=== PATIENT | male | born 1960 | race Caucasian/White ===

== ENCOUNTER → 2017-02-12 | Outpatient (CLI) | payer BC ==
--- NOTE | 2017-02-12 21:05 | MR ---
EXAMINATION TYPE: MR cervical spine wo/w con DATE OF EXAM: 02/12/2017 COMPARISON: NONE HISTORY: Neck pain, headache, limited range of motion TECHNIQUE: Multiplanar, multisequence images of the cervical spine were acquired utilizing 7.5 ml mL intravenous Gadavist gadolinium contrast. Diffusion weighted imaging was performed. C2-C3: Posterior disc bulge causes minimal anterior mass effect on the thecal sac somewhat eccentric towards the right. No significant central stenosis or foraminal encroachment. C3-C4: Posterior disc bulge causes anterior mass effect on the thecal sac but no significant central stenosis. No significant foraminal encroachment. C4-C5: Posterior extension of disc bulge causes mild anterior mass effect on the thecal sac. No signi ficant central stenosis or foraminal encroachment. C5-C6: Left posterior paracentral extension of endplate disc complex causes anterolateral mass effect on the thecal sac and may contact the cervical cord. There is left greater than right-sided foramina l encroachment due to lateral extension endplate disc complex. No central stenosis. C6-C7: Circumferential extension of endplate disc complex causes some foraminal encroachment bilatera lly. Minimal disc bulge causes only slight anterior mass effect on the thecal sac, no central stenosi s. C7-T1: No evidence for degenerative disc disease. No disc bulge/herniation or protrusion. No Canal stenosis. Foramina are patent bilaterally. Cervical segments are intact. There is normal alignment. Cervical spinal cord is of normal signal. Craniovertebral junction relationships are within normal limits. There is multilevel spondylosis pr esent. Endplate discogenic marrow signal changes are present with associated loss of disc height and signal especially at C5-6 and C6-7. Minimal retrolisthesis grade 1 C5-6. There is some enhancement th at the facets on the left at C4-5, this may represent some inflammatory change. Correlate for any yo or intervention. IMPRESSION: Degenerative disc disease with multilevel foraminal encroachment. Some enhancement of the facet joint described at C4-5 on the left is noted.
== END | disposition home or self-care (01) ==
LOC: RADMRIMAIN 17:52
PROVIDERS: ATTEND Internal Medicine Geriatric Medicine
DX: M50.30 Other cervical disc degeneration, unspecified cervical region (principal)
CPT/HCPCS: 72156; A9581

== ENCOUNTER → 2017-12-13 | Outpatient (CLI) | payer OTHER ==
[2017-12-13 11:22] LABS: Appearance,Urine Clear (Clear); Bilirubin,Urine Negative (Negative); Blood,Urine Negative (Negative); Color,Urine Yellow; Glucose,Urine (UA) Negative (Negative); Ketones,Urine Negative (Negative); Leukocyte Esterase,Urine Negative (Negative); Nitrite,Urine Negative (Negative); PH, Urine 6.5 (5.0-8.0); Protein,Urine Negative (Negative); Specific Gravity,Urine 1.017 (1.001-1.035)
[2017-12-13 11:38] LABS: Basophils # (A) 0.1 k/uL (0-0.2); Basophils % (A) 1 %; Eosinophils # (A) 0.2 k/uL (0-0.7); Eosinophils % (A) 3 %; HCT 48.4 % (39.0-53.0); Lymphocytes # (A) 1.9 k/uL (1.0-4.8); Lymphocytes % (A) 21 %; MCH 31.8 pg (25.0-35.0); MCV 96.3 fL (80.0-100.0); Mean Platelet Volume 6.9; Monocytes # (A) 0.6 k/uL (0-1.0); Monocytes % (A) 6 %; Neutrophils # (A) 6.2 k/uL (1.3-7.7); Neutrophils % (A) 68 %; Platelet Count 259 k/uL (150-450); RBC 5.02 m/uL (4.30-5.90); RDW 12.8 % (11.5-15.5); WBC 9.1 k/uL (3.8-10.6)
[2017-12-13 11:44] LABS: Anion Gap 10 mmol/L; Blood Urea Nitrogen 13 mg/dL (9-20); Calcium 9.3 mg/dL (8.4-10.2); Carbon Dioxide 25 mmol/L (22-30); Chloride 109 mmol/L (98-107); Glucose 104 mg/dL (74-99); Potassium 4.7 mmol/L (3.5-5.1); Sodium 144 mmol/L (137-145)
[2017-12-13 11:50] LABS: INR 0.9 (<1.2); Partial Thromboplastin Time 23.9 sec (22.0-30.0); Prothrombin Time 9.4 sec (9.0-12.0)
--- NOTE | 2017-12-13 14:39 | XR ---
EXAMINATION TYPE: XR chest 2V DATE OF EXAM: 12/13/2017 HISTORY: Z01.818 Pre Surg. REFERENCE: NONE. FINDINGS: There is a right cardiophrenic angle mass which measures approximately 9 cm. 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 There is some atelectasis in the right lower lung. The lungs are otherwise clear. Pleural space are c lear. The heart is not enlarged. IMPRESSION: 1. RIGHT CARDIOPHRENIC ANGLE MASS. 2. MILD ATELECTATIC CHANGE, RIGHT LUNG BASE.
== END | disposition home or self-care (01) ==
LOC: LABPAT 10:50
PROVIDERS: ATTEND Orthopaedic Surgery Orthopaedic Surgery of the Spine
DX: Z01.818 Encounter for other preprocedural examination (principal); M50.221 Other cervical disc displacement at C4-C5 level; J98.11 Atelectasis; R91.8 Other nonspecific abnormal finding of lung field; Z01.812 Encounter for preprocedural laboratory examination
CPT/HCPCS: 71046; 80048; 81003; 85025; 85610; 85730; 87070

== ENCOUNTER 2017-12-18 06:43 | Inpatient (IN) | payer OTHER ==
[2017-12-12 10:09] VITALS: BMI 23.7
[~2017-12-18 06:43] MED LIST: ONDANSETRON 4 MG/2 ML VIAL IVP PRN; ceFAZolin IN SWFI 2 GM/20 ML SYRINGE IVP ONE; fentaNYL (PF) 50 MCG/ML 2 ML AMP IV PRN
[2017-12-18] MEDS ORDERED: ONDANSETRON 4 MG/2 ML VIAL ONE (07:28)
[2017-12-18] MEDS: LACTATED RINGERS 1,000 ML IV SCH ×2 (07:31→16:13)
[2017-12-18] MEDS ORDERED: LIDOCAINE 1% 20 ML VIAL (10MG/ML) FOR IV START INTRADERMA ONE (07:32)
[2017-12-18] MEDS ORDERED: PROPOFOL 10 MG/ML 20 ML VIAL IV ONE (08:30)
[2017-12-18] MEDS ORDERED: PHENYLEPHRINE-0.9% NACL SYG 1 MG/10 ML SYRINGE ONE (08:30)
[2017-12-18] MEDS ORDERED: fentaNYL (PF) 50 MCG/ML 2 ML AMP ONE (08:30)
[2017-12-18] MEDS ORDERED: MIDAZOLAM 2 MG/2 ML VIAL ONE (08:30)
[2017-12-18] MEDS ORDERED: ePHEDrine SULFATE/0.9% NACL/PF 50 MG/5 ML SYRINGE IV ONE (08:30)
[2017-12-18] MEDS ORDERED: LIDOCAINE 0.5%-EPI 1:200,000 50 ML VIAL SQ ONE (08:30)
[2017-12-18] MEDS ORDERED: DEXAMETHASONE SOD PHOS (MDV) 100 MG/10 ML VIAL ONE (08:30)
[2017-12-18] MEDS ORDERED: SUCCINYLCHOLINE CHLORIDE 100 MG/5 ML SYR IV ONE (08:30)
[2017-12-18] MEDS ORDERED: GELATIN SPONGE,ABSORB (LARGE) 1 EACH SPONGE TOPICAL ONE (08:30)
[2017-12-18] MEDS ORDERED: THROMBIN (BOVINE) 5,000 UNIT VIAL TOPICAL ONE (08:30)
[2017-12-18] MEDS ORDERED: LIDOCAINE 1% INJ 10MG/ML (20 ML MDV) ONE (08:30)
[2017-12-18] MEDS: BACITRACIN 50,000 UNIT, POLYMYXIN B 500,000 UNIT in SODIUM CHLORIDE 0.9% IRRIGATIO 1,00... IRRIGATION ONE ×2 (09:00→10:08)
[2017-12-18] MEDS ORDERED: LACTATED RINGERS 1,000 ML IV ONE ×3 (09:15→12:20)
--- NOTE | 2017-12-18 11:31 | XR ---
Cervical spine HISTORY: Needle placement Single lateral view of the cervical spine is submitted There is a needle within C5-6 disc space level. Endotracheal tube noted incidentally. Degenerative di sc changes are present. IMPRESSION: Orthopedic localization.
[2017-12-18] MEDS ORDERED: HYDROmorphone 0.5 MG/0.5 ML SYRINGE IVP PRN (11:42)
[2017-12-18] MEDS ORDERED: MAGNESIUM HYDROXIDE 2,400 MG/10 ML CUP PO PRN (11:42)
[2017-12-18] MEDS ORDERED: HYDROcodone/APAP 5-325MG 1 EACH TAB PO PRN (11:42)
[2017-12-18] MEDS ORDERED: ONDANSETRON 4 MG/2 ML VIAL IVP PRN (11:42)
[2017-12-18] MEDS ORDERED: HYDROmorphone 1 MG/ML 1 ML SYRINGE IVP PRN ×2 (11:42→17:44)
[2017-12-18] MEDS ORDERED: BENZOCAINE/MENTHOL LOZENG 1 EACH LOZENGE MUCOUS MEM PRN (11:42)
[2017-12-18] MEDS ORDERED: SODIUM CHLORIDE 0.9% 1,000 ML IV SCH (11:45)
--- NOTE | 2017-12-18 11:52 | P.OP ---
Date of Procedure: 12/18/17 Preoperative Diagnosis: Degenerative disc disease C4 5 C5 6 C6 7, cervical stenosis C4 5 C5 6 C6 7, spondylolisthesis C4 5, disc height loss C5 6 C6 7, upper extremity radiculopathy, neck pain, facet arthrosis C4 5 C5 6 C6 7 Postoperative Diagnosis: Same Anesthesia: GETA Pathology: none sent Condition: stable Disposition: PACU Description of Procedure: BRIEF OPERATIVE NOTE Preoperative Diagnosis: Cervical stenosis C4 5 C5 6 C6 7, degenerative disc disease C4 5 C5 6 C6 7, on the listhesis C4 5, disc height loss C5 6 C6 7, facet arthrosis C4 5 C5 6 C6 7, neck pain, upper extremity radiculopathy Postoperative Diagnosis: Same Procedure: Anterior cervical decompression with discectomy and fusion C4 5 C5 6 and C67 Placement of interbody graft C4 5 C5 6 C6 7 Application of anterior cervical plate C4 5 6 and 7 Surgeon: Dr. Palmer [employer] Front End Web Developer: Igor Ng is present throughout the entire the case persistence during positioning, dissection, exposure, visualization, and all crucial elements of the case as well as closure. Along with Michelle Machado the PA student Anesthesia: General anesthesia Estimated blood loss:approximately 50 mL Complications: None apparent Components implanted: K2M [place] anterior cervical plate system with 3 screws measuring 4.2 and 5 screws measuring 4.0 millimeters along with Vikos interbody allograft bone graft and 1 mL of DBX bone putty to supplemental bone graft Disposition: To recovery room in good stable condition. OPERATIVE INDICATIONS The patient has had long-standing issues in their neck and upper extremities. his found have significant changes at his cervical spine particular at C4 5 C5 6 and C6 7 with disc degeneration spondylolisthesis and foraminal stenosis which correlated with his neck and upper extremity symptoms. We discussed the possibility of doing 45 and C5 6 but after further discussion with the patient in regards to C6 7 level and significant degeneration at that level as well as the believe that a number of his symptoms stem from that level and it may cause further issues down the line, We decided include C6 7 level in the surgery today. We discussed this with him at length and discussed the possibility of anterior cervical discectomy and fusion at C4 5 C5 6 and C6 7 and the patient agreed. The patient has been through conservative treatment. We discussed various treatment options including surgery, and the patient wishes to proceed with surgery We discussed the risk, patient's alternatives and benefits of surgery including but not limited to, risk of bleeding risk of infection, risk of need for further surgery, risk of decreased, loss of motion, muscle function , malunion nonunion, hardware failure, nerve damage, paralysis, heart attack, and . OPERATIVE SUMMARY After discussing all the risks, patient alternatives and benefits at length, the patient elected to proceed with surgical intervention, signed informed consent for anterior cervical discectomy and fusion C4 5 C5 6 and C6 7 , and presented for their procedure. The patient was seen and examined in the preoperative holding area and the surgical site was marked. The patient was given antibiotics and brought to the operating room. The patient was positioned on the operating room table in a supine position being careful to pad any bony prominences and pressure points. The patient was sedated and intubated by anesthesia in standard fashion. Once the airway and C- spine were stabilized the patient's arms were padded and tucked at her side, with her shoulders gently taped. The head was placed in a donut pad with the neck in good neutral alignment and position. We were careful to maintain the patient's cervical spine and good neutral alignment and position throughout. The patient was prepped and draped in a normal standard fashion. An appropriate timeout and keystone protocol performed. We were able to proceed with the surgery. The local wound area was infiltrated with local anesthetic. An incision was made transversely approximately 2-1/2 cm over the appropriate levels at C5 6 . Dissection was taken down subcutaneously to the level of the platysma which was split in line with its fibers. Dissection was taken with a carotid approach, with the trachea and esophagus medial and the carotid sheath laterally. We dissected down to the anterior surface of the vertebral bodies. Intraoperative x-ray was taken which showed a marker at the appropriate levelof C5 6 . With the appropriate level positively confirmed, we were able to proceed with discectomy at the appropriate levels. All of the operative levels were exposed appropriately. The patient had all their twitches back, and there was no evidence of recurrent laryngeal issue. The wound was copiously irrigated and suctioned dry as had been done periodically throughout the case. At the appropriate level/levels, starting at C4 5 and then moving to 56 and then to C6 7, I established an annulotomy with an 11 blade scalpel. there were osteophytes at each of the levels which were removed appropriately with Kerrison rongeur or bur. A discectomy was performed with a combination of pituitary rongeurs, curettes, a high-speed bur, and Kerrison rongeurs. The posterior longitudinal ligament was taken down as were any posterior osteophytes. This gave good central and bilateral foraminal decompression. There is no evidence of any dural tear or leak. The endplates were prepared with a high-speed bur. With the endplates in good parallel position, I was able to size for the appropriate size interbody graft. The wound was irrigated and suctioned dry the graft was prepared and malleted into position at each of the levels at C4 5 C5 6 and C6 7 . It had good alignment and position with the anterior surface flush with the anterior surface of the vertebral bodies. This was done similarly the appropriate levels from C4 to C7 . With the grafts intact, I was able to measure and contour and appropriate sized plate. The plate was positioned at the midline over the appropriate levels from C4 to C7 . Screw holes were established with a hand drill and drill guide. I had to adjust the plate and use a longer plate which was positioned appropriately in good alignment and good position. Screws were placed in good alignment and position with excellent bony purchase. They were seated under the locking device. The construct was checked and found to be stable. Intraoperative x-ray was taken which showed good alignment and position of the implants at the appropriate levels. There was no evidence of any dural tear or leak. Good hemostasis was maintained. The wound was copiously irrigated and suctioned dry as had been done periodically throughout the case. The platysma was closed with absorbable suture. The subcutaneous tissue was closed. The subcuticular tissue was closed with absorbable suture. The wound was cleaned and dried and dressed appropriately. A soft cervical collar was placed appropriately. The patient was woken up by anesthesia, extubated, transferred back gently to their hospital bed and brought to the recovery room in good stable condition. The patient will be admitted to the hospital for appropriate postoperative care , medical management and monitoring. We will continue to follow them closely about the postoperative course.
--- NOTE | 2017-12-18 11:52 | XR ---
Cervical spine HISTORY: Cervical fusion Single lateral view of the cervical spine correlated to prior exam on same date earlier time. Patient is status post anterior cervical fusion and discectomy at C4-5-6-7. There is anatomic alignme nt on the lateral view. Endotracheal tube is present, there are overlying artifacts. IMPRESSION: Orthopedic follow-up.
[2017-12-18] MEDS ORDERED: diphenhydrAMINE 50 MG/ML 1 ML VIAL IVP ONE (12:15)
[2017-12-18] MEDS: HYDROmorphone 0.5 MG/0.5 ML SYRINGE IVP PRN ×2 (12:27→12:39)
[2017-12-18 12:46] VITALS: RESP 16
[2017-12-18] MEDS ORDERED: ceFAZolin IN SWFI 2 GM/20 ML SYRINGE IVP SCH (16:00)
[2017-12-18] MEDS: GABAPENTIN 300 MG CAP PO SCH ×2 (16:21→20:43)
[2017-12-18 19:14] VITALS: BP 141/68; PULSE 82
--- NOTE | 2017-12-18 20:24 | P.DS ---
Providers Date of admission: 12/18/17 11:52 Attending physician: Yessica Palmer Primary care physician: [facility] Course: Patient is improving well post op. +voiding x2 +tolerating soft diet +tolerating pain well with oral meds +amulatory independently +would remains clear S/p ACDF C4/5, C5/6, C6/7 for cervical stenosis, radiculopathy Discharge home today as per patient request. doing well per nursing staff. Okay for d/c home today with follow up 1-2 weeks or sooner if any problems. Patient Condition at Discharge: Good Plan - Discharge Summary Discharge Rx Participant: Yes New Discharge Prescriptions: No Action Meloxicam [Mobic] 7.5 mg PO DAILY Levothyroxine Sodium [Levoxyl] 50 mcg PO DAILY HYDROcodone/APAP 5-325MG [Holton 5-325] 1 tab PO Q6HR PRN PRN Reason: Pain Gabapentin [Neurontin] 300 mg PO TID Cyclobenzaprine [Flexeril] 10 mg PO HS DULoxetine HCL [Cymbalta] 60 mg PO DAILY Discharge Medication List Cyclobenzaprine [Flexeril] 10 mg PO HS 12/12/17 [History] DULoxetine HCL [Cymbalta] 60 mg PO DAILY 12/12/17 [History] Gabapentin [Neurontin] 300 mg PO TID 12/12/17 [History] HYDROcodone/APAP 5-325MG [Holton 5-325] 1 tab PO Q6HR PRN 12/12/17 [History] Levothyroxine Sodium [Levoxyl] 50 mcg PO DAILY 12/12/17 [History] Meloxicam [Mobic] 7.5 mg PO DAILY 12/12/17 [History] Follow up Appointment(s)/Referral(s): Yessica Palmer DO [Doctor of Osteopathic Medicine] - 2 Weeks Patient Instructions/Handouts: *Surgery [facility] - ([facility]) Cervical Surgery Discharge Instructions Activity/Diet/Wound Care/Special Instructions: May ambulate to tolerance avoid rigorous or heavy activity no overhead activity no heavy lifting may shower with waterproof tegaderm intact On Saturday, 12/30, may shower with fiona uncovered but do not soak in a tub Discharge Disposition: HOME SELF-CARE
[2017-12-18 20:29] VITALS: TEMP 97
[2017-12-18] MEDS ORDERED: CYCLOBENZAPRINE 10 MG TAB PO SCH (21:00)
[2017-12-19] MEDS ORDERED: LEVOTHYROXINE 50 MCG TAB PO SCH (06:30)
[2017-12-19] MEDS ORDERED: DULoxetine HCL 60 MG CAPSULE.DR PO SCH (09:00)
[2017-12-19] MEDS ORDERED: SENNOSIDES-DOCUSATE SODIUM 1 EACH TAB PO SCH ×2 (09:00)
--- NOTE | 2017-12-23 08:47 | CDI ---
Last Revision, May 2017 Documentation Clarification Form Date: 12/23/17 From: Jess Tyrell Ellen Chao, Manager Latin Hours-8:30 am & 5 pm M-F Admit Date: 12/18/2017 11:52:00 AM Patient Name: Zoran Fraag Visit Number: [id number] Discharge Date: 12/18/17 ATTENTION: The Clinical Documentation Specialists (CDI) and [facility] Coding Staff appreciate your assistance in clarifying documentation. Please respond to the clarification below the line at the bottom and electronically sign. The CDI & [facility] Coding staff will review the response and follow-up if needed. Please note: Queries are made part of the Legal Health Record. If you have any questions, please contact the author of this message via ITS. Dr. Yessica Palmer Documentation in the Operative Report included: A discectomy was performed with a combination of pituitary rongeurs, curettes, a high-speed bur and Kerrison rongeurs. Per & Postoperative Diagnosis: Cervical stenosis C4 5, C5 6, C6 7; degenerative disc disease C4 5, C5 6, C6 7, on listhesis C4 5, disc height loss C5 6, C6 7; facet arthrosis C4 5, C5 6, C6 7; upper extremity radiculopathy. Treatment: Anterior cervical decompression with discectomy and fusion C4 5, C5 6 and C6 7. Placement of interbody graft C4 5, C5 6 & C6 7. Application of anterior cervical plate C4 5 6 & 7. In order to capture the severity of condition, please specify the following the discectomy: Complete discectomy Partial discectomy Please continue to document in your progress notes and discharge summary in order to capture severity of illness and risk of mortality. Include clinical findings that support your diagnosis. MTDD
--- NOTE | 2018-01-01 13:32 | CDI ---
Documentation Clarification Form Date: 12/23/2017 8:45:00 AM From: Jess Santillan Baking Assistant-Ellen Guidry Admit Date: 12/18/2017 11:52:00 AM Patient Name: Zoran Fraga Visit Number: [id number] Discharge Date: 12/18/17 ATTENTION: The Clinical Documentation Specialists (CDI) and [facility] Coding Staff appreciate your assistance in clarifying documentation. Please respond to the clarification below the line at the bottom and electronically sign. The CDI & [facility] Coding staff will review the response and follow-up if needed. Please note: Queries are made part of the Legal Health Record. If you have any questions, please contact the author of this message via ITS. Dr. Yessica Palmer Documentation in the Operative Report included: A discectomy was performed with a combination of pituitary rongeurs, curettes, a high-speed bur and Kerrison rongeurs. In order to capture the correct procedure code for billing, please specify the following: Complete discectomy or Partial discectomy MTDD
== END 2017-12-18 21:30 | disposition home or self-care (01) | DRG 473 ==
LOC: OR 06:43 → 3SUR 11:52 → OR 13:59
PROVIDERS: ADMIT Orthopaedic Surgery Orthopaedic Surgery of the Spine; ATTEND Orthopaedic Surgery Orthopaedic Surgery of the Spine
PROC: 0RG2070 Fusion of 2 or more Cervical Vertebral Joints with Autologous Tissue Substitute, Anterior Approach, Anterior Column, Open Approach (ICD-10-PCS; 2017-12-18)
PROC: 0RT30ZZ Resection of Cervical Vertebral Disc, Open Approach (ICD-10-PCS; 2017-12-18)
PROC: 0RG20A0 Fusion of 2 or more Cervical Vertebral Joints with Interbody Fusion Device, Anterior Approach, Anterior Column, Open Approach (ICD-10-PCS; principal; 2017-12-18 08:30)
DX: M48.02 Spinal stenosis, cervical region (principal); M50.121 Cervical disc disorder at C4-C5 level with radiculopathy; E03.9 Hypothyroidism, unspecified; M43.12 Spondylolisthesis, cervical region; M47.22 Other spondylosis with radiculopathy, cervical region; H93.13 Tinnitus, bilateral; M54.5 Low back pain; R51 Headache; F32.9 Major depressive disorder, single episode, unspecified; F17.210 Nicotine dependence, cigarettes, uncomplicated; Z71.6 Tobacco abuse counseling
CPT/HCPCS: 72020; 86850; 86900; 86901

== ENCOUNTER → 2018-10-02 | Outpatient (CLI) | payer OTHER ==
--- NOTE | 2018-10-03 16:24 | MR ---
EXAMINATION TYPE: MR cervical spine wo/w con DATE OF EXAM: 10/02/2018 COMPARISON: 02/12/2017 HISTORY: Radiculopathy, cervical CONTRAST: Performed utilizing 7 mL intravenous Gadavist gadolinium contrast. TECHNIQUE: Multiplanar multiecho imaging on a 3.0 Rebekah magnet is performed through the cervical spin e. FINDINGS: The craniovertebral junction is normal. Vertebral body alignment is normal. There is an anterior cervical fusion present C4-C7. C7-T1: No focal disc herniation or significant disc bulge is evident. No spinal canal stenosis or n eural foraminal stenosis is present. C6-7: No focal disc herniation or significant disc bulge is evident. No spinal canal stenosis or marina ral foraminal stenosis is present. C5-6: No focal disc herniation or significant disc bulge is evident. No spinal canal stenosis or marina ral foraminal stenosis is present. C4-5: No focal disc herniation or significant disc bulge is evident. No spinal canal stenosis or marina ral foraminal stenosis is present. C3-4: Mild disc bulge has anterior thecal sac contact. No AP spinal canal stenosis or neural foramina l stenosis is present. This may be slightly greater than comparison. C2-3: No focal disc herniation or significant disc bulge is evident. No spinal canal stenosis or marina ral foraminal stenosis is present. Following contrast administration, no abnormal enhancement is evident. IMPRESSIONS: 1. Postsurgical changes within the anterior cervical spine from cervical fusion. 2. Some mild increase of a small degree of bulge C3-4 is present without cord contact.
== END ==
LOC: RADMRIMAIN 13:26
PROVIDERS: ATTEND Neurological Surgery
DX: M50.11 Cervical disc disorder with radiculopathy, high cervical region (principal); M43.22 Fusion of spine, cervical region; Z98.890 Other specified postprocedural states
CPT/HCPCS: 72156; A9585

== ENCOUNTER 2024-01-02 19:19 | Inpatient (IN) | payer MEDICARE, OTHER ==
--- NOTE | 2024-01-02 20:04 | ED ---
Extremity Problem HPI - General Stated complaint: R elbow infection Time Seen by Provider: 01/02/24 20:03 Source: patient, RN notes reviewed Mode of arrival: ambulatory Limitations: no limitations - History of Present Illness Initial comments: 83-year-old male presenting to the ER with a chief complaint of right elbow pain. Patient states a couple of weeks ago he scraped his skin and has been having a scab. He states 2 days he noticed brown purulent discharge from the wound. He states he put Neosporin and wrapped it. This morning he noticed his right elbow was extremely erythematous and edematous. He was seen by Dr. Rodrick ayala who sent him to the ER for evaluation with possible admission to IV antibiotics. Patient states that extremely painful to move. No previous antibiotic use. Tetanus is up-to-date. Denies any fevers, chills, nausea, vomiting, chest pain, shortness of breath, abdominal pain or peripheral edema. - Related Data Home Medications Medication Instructions Recorded Confirmed Cyclobenzaprine [Flexeril] 10 mg PO HS 12/12/17 12/18/17 DULoxetine HCL [Cymbalta] 60 mg PO DAILY 12/12/17 12/12/17 Gabapentin [Neurontin] 300 mg PO TID 12/12/17 12/12/17 HYDROcodone/APAP 5-325MG [[place] 1 tab PO Q6HR PRN 12/12/17 12/18/17 5-325] Levothyroxine Sodium [Levoxyl] 50 mcg PO DAILY 12/12/17 12/12/17 Meloxicam [Mobic] 7.5 mg PO DAILY 12/12/17 12/12/17 Allergies Allergy/AdvReac Type Severity Reaction Status Date / Time No Known Allergies Allergy Verified 01/02/24 20:06 Review of Systems ROS Statement: Those systems with pertinent positive or pertinent negative responses have been documented in the HPI. ROS Other: All systems not noted in ROS Statement are negative. Past Medical History Past Medical History: Osteoarthritis (OA), Thyroid Disorder Additional Past Medical History / Comment(s): NECK AND BACK PAIN History of Any Multi-Drug Resistant Organisms: None Reported Past Surgical History: Appendectomy, Tonsillectomy Additional Past Surgical History / Comment(s): BACK INJECTIONS Past Anesthesia/Blood Transfusion Reactions: No Reported Reaction Past Psychological History: Depression Past Alcohol Use History: None Reported Additional Past Alcohol Use History / Comment(s): SMOKES < 1 PPD SINCE AGE 13 Past Drug Use History: None Reported - Past Family History Mother Family Medical History: No Reported History General Exam - General Exam Comments Initial Comments: Visual Physical Exam Vital signs reviewed General: Well-appearing, nontoxic, no acute distress. Head: Normocephalic, atraumatic Eyes: PERRLA, EOMI ENT: Airway patent Chest: Nonlabored breathing Skin: No visual rash, normal skin tone, edematous and erythematous right elbow. Patient has full flexion. Limited extension. Neuro: Alert and oriented 3 Musculoskeletal: No gross abnormalities General appearance: alert, in no apparent distress Respiratory exam: Present: normal lung sounds bilaterally. Absent: respiratory distress, wheezes, rales, rhonchi, stridor Cardiovascular Exam: Present: regular rate, normal rhythm, normal heart sounds. Absent: systolic murmur, diastolic murmur, rubs, gallop, clicks Extremities exam: Present: tenderness (Tenderness and edema to right elbow. There is an overlying scab. No purulent drainage present. Limited flexion and extension due to edema. 2+ right radial pulse. Sensation intact.) Neurological exam: Present: alert, oriented X3, CN II-XII intact Skin exam: Present: warm, dry, intact, normal color. Absent: rash Course Vital Signs 01/02/24 20:07 Temperature 99.7 F H Pulse Rate 80 Respiratory 19 Rate Blood Pressure 122/84 - Reevaluation(s) Reevaluation #1: 01/02/24 23:[address] Mensah for admission. He instructed IV vancomycin and unsayn. Ortho and ID on consult. Medical Decision Making - Medical Decision Making I performed the quick note portion of this chart. Electronically signed by Clarence Gregg PA-C Was pt. sent in by a medical professional or institution ([facility], BLANKING MACHINE OPERATOR, urgent care, hospital, or long term...) When possible be specific @ -Patient sent in by PCP, Dr. Mensah, for evaluation of right elbow infection. Did you speak to anyone other than the patient for history (EMS, parent, family, police, friend...)? What history was obtained from this source @ - aiding in HPI and past medical history. Did you review nursing and triage notes (agree or disagree)? Why? @ -I reviewed and agree with nursing and triage notes Were old charts reviewed (outside hosp., previous admission, EMS record, old EKG, old radiological studies, urgent care reports/EKG's, long term records)? Report findings @ -No old charts were reviewed Differential Diagnosis (chest pain, altered mental status, abdominal pain women, abdominal pain men, vaginal bleeding, weakness, fever, dyspnea, syncope, headache, dizziness, GI bleed, back pain, seizure, CVA, palpatations, mental health, musculoskeletal)? @ -Cellulitis, bursitis, septic arthritis This list is not meant to be all- inclusive EKG interpreted by me (3pts min.). @ -None X-rays interpreted by me (1pt min.). @ -Right elbow x-ray interpreted by me negative for acute osseous process. Mild surrounding soft tissue edema. CT interpreted by me (1pt min.). @ -None done U/S interpreted by me (1pt. min.). @ -None done What testing was considered but not performed or refused? (CT, X-rays, U/S, labs)? Why? @ -None What meds were considered but not given or refused? Why? @ -None Did you discuss the management of the patient with other professionals (professionals i.e. , PA, BLANKING MACHINE OPERATOR, lab, RT, psych nurse, geriatric social worker, project construction manager, teacher, maritime officer, patient case coordinator)? Give summary @ -Yes, case discussed with Dr. Mensah for admission. He would like patient started on vancomycin and Unasyn. ID and orthopedics on consult. Was smoking cessation discussed for >3mins.? @ -No Was critical care preformed (if so, how long)? @ -No Were there social determinants of health that impacted care today? How? (Homelessness, low income, unemployed, alcoholism, drug addiction, trans portation, low edu. Level, literacy, decrease access to med. care, prison, rehab)? @ -No Was there de-escalation of care discussed even if they declined (Discuss DNR or withdrawal of care, Hospice)? DNR status @ -No What co-morbidities impacted this encounter? (DM, HTN, Smoking, COPD, CAD, Cancer, CVA, ARF, Chemo, Hep., AIDS, mental health diagnosis, sleep apnea, morbid obesity)? @ -None Was patient admitted / discharged? Hospital course, mention meds given and route, prescriptions, significant lab abnormalities, going to OR and other pertinent info. @ -Admitted. 63 year old male presented to the ER with a chief complaint of right elbow erythema and edema. Patient sent by PCP, Dr. Mensah, for evaluation. History and physical exam completed. Vitals upon arrival remarkable for temperature 99.7 otherwise stable. Patient in no signs of acute distress and nontoxic-appearing. Exam remarkable for an edematous and erythematous right elbow. There is an overlying scab. No purulent drainage present. Patient has limited flexion and extension due to edema. Right upper extremity neurovascular intact. Due to concern of infectious process laboratory studies obtained and unremarkable. WBC 9.9 lactic 1.2. Right elbow x-ray interpreted by me negative for osseous involvement with some mild soft tissue edema. Admission considered for infectious bursitis. Case discussed with Dr. Mensah for admission. He would like patient started on vancomycin and Unasyn. ID and orthopedics on consult. Tetanus is up to date. Patient received p.o. Tylenol for fever control. Patient agreeable for admission. Patient admitted in stable condition. Case discussed with ED attending, Dr. Gomes. Undiagnosed new problem with uncertain prognosis? @ -No Drug Therapy requiring intensive monitoring for toxicity (Heparin, Nitro, Insulin, Cardizem)? @ -No Were any procedures done? @ -No Diagnosis/symptom? @ -Infectious bursitis Acute, or Chronic, or Acute on Chronic? @ -Acute Uncomplicated (without systemic symptoms) or Complicated (systemic symptoms)? @ -Uncomplicated Side effects of treatment? @ -No Exacerbation, Progression, or Severe Exacerbation? @ -No Poses a threat to life or bodily function? How? (Chest pain, [place], NE, pneumonia, PE, COPD, DKA, ARF, appy, cholecystitis, CVA, Diverticulitis, Homicidal, Suicidal, threat to staff... and all critical care pts) @ -Yes, infectious process can lead to sepsis which can lead to endorgan dysfunction. - Lab Data Result diagrams: 01/02/24 20:13 01/02/24 20:13 Lab Results 01/02/24 01/02/24 01/02/24 Range/Units 20:13 20:13 20:13 WBC 9.9 (3.8-10.6) k/uL RBC 4.72 (4.30-5.90) m/uL Hgb 15.2 (13.0-17.5) gm/dL Hct 45.3 (39.0-53.0) % MCV 96.0 (80.0-100.0) fL MCH 32.3 (25.0-35.0) pg MCHC 33.6 (31.0-37.0) g/dL RDW 12.6 (11.5-15.5) % Plt Count 229 (150-450) k/uL MPV 7.0 Neutrophils % 75 % Lymphocytes % 13 % Monocytes % 8 % Eosinophils % 4 % Basophils % 1 % Neutrophils # 7.4 (1.3-7.7) k/uL Lymphocytes # 1.3 (1.0-4.8) k/uL Monocytes # 0.8 (0-1.0) k/uL Eosinophils # 0.4 (0-0.7) k/uL Basophils # 0.1 (0-0.2) k/uL Sodium 135 L (137-145) mmol/L Potassium 4.4 (3.5-5.1) mmol/L Chloride 100 (98-107) mmol/L Carbon Dioxide 30 (22-30) mmol/L Anion Gap 5 mmol/L BUN 21 H (9-20) mg/dL Creatinine 0.75 (0.66-1.25) mg/dL Est GFR (CKD-EPI)AfAm >90 (>60 ml/min/1.73 sqM) Est GFR (CKD-EPI)NonAf >90 (>60 ml/min/1.73 sqM) Glucose 98 (74-99) mg/dL Plasma Lactic Acid Tonio 1.2 (0.7-2.0) mmol/L Calcium 9.2 (8.4-10.2) mg/dL Total Bilirubin 0.7 (0.2-1.3) mg/dL AST 21 (17-59) U/L ALT 13 (4-49) U/L Alkaline Phosphatase 87 (38-126) U/L Total Protein 6.8 (6.3-8.2) g/dL Albumin 4.0 (3.5-5.0) g/dL - Radiology Data Radiology results: report reviewed, image reviewed Disposition Clinical Impression: Bursitis, Cellulitis Disposition: ADMITTED IP TO THIS HOSP Condition: Stable Referrals: Helio Mensah MD [Primary Care Provider] - 1-2 days Time of Disposition: 23:22
[2024-01-02 21:00] LABS: Basophils # (A) 0.1 k/uL (0-0.2); Basophils % (A) 1 %; Eosinophils # (A) 0.4 k/uL (0-0.7); Eosinophils % (A) 4 %; HCT 45.3 % (39.0-53.0); HGB 15.2 gm/dL (13.0-17.5); Lymphocytes # (A) 1.3 k/uL (1.0-4.8); Lymphocytes % (A) 13 %; MCH 32.3 pg (25.0-35.0); MCHC 33.6 g/dL (31.0-37.0); Monocytes # (A) 0.8 k/uL (0-1.0); Monocytes % (A) 8 %; Neutrophils # (A) 7.4 k/uL (1.3-7.7); Neutrophils % (A) 75 %; Platelet Count 229 k/uL (150-450); RBC 4.72 m/uL (4.30-5.90); RDW 12.6 % (11.5-15.5); WBC 9.9 k/uL (3.8-10.6)
[2024-01-02 21:17] LABS: ALT 13 U/L (4-49); AST 21 U/L (17-59); African American GFR (CKD) >90 (>60 ml/min/1.73 sqM); Alkaline Phosphatase 87 U/L (38-126); Anion Gap 5 mmol/L; Blood Urea Nitrogen 21 mg/dL (9-20); Calcium 9.2 mg/dL (8.4-10.2); Carbon Dioxide 30 mmol/L (22-30); Chloride 100 mmol/L (98-107); Glucose 98 mg/dL (74-99); Non-African American GFR(CKD) >90 (>60 ml/min/1.73 sqM); Potassium 4.4 mmol/L (3.5-5.1); Sodium 135 mmol/L (137-145); Total Bilirubin 0.7 mg/dL (0.2-1.3); Total Protein 6.8 g/dL (6.3-8.2)
--- NOTE | 2024-01-02 22:34 | XR ---
EXAMINATION TYPE: XR elbow complete RT DATE OF EXAM: 01/02/2024 8:52 PM CLINICAL INDICATION:Male, 63 years old with history of edema; [facility] COMPARISON: None TECHNIQUE: XR elbow complete RT; elbow was examined in AP, lateral, and oblique projections. FINDINGS: No evidence of any acute osseous pathology, joint dislocation, or soft tissue swelling is n oted. No evidence of joint effusion is present. IMPRESSION: No evidence of acute fracture.
[2024-01-02] MEDS ORDERED: VANCOMYCIN IV PER PHARMACY 1 EACH MISC MISCELLANE PRN (23:37)
[2024-01-02] MEDS ORDERED: NALOXONE 0.4 MG/ML 1 ML VIAL IV PRN (23:38)
[2024-01-02] MEDS ORDERED: ONDANSETRON 4 MG/2 ML VIAL IVP PRN (23:38)
[2024-01-02] MEDS ORDERED: ACETAMINOPHEN TAB 325 MG TAB PO PRN (23:38)
[2024-01-02] MEDS ORDERED: IBUPROFEN 400 MG TAB PO PRN (23:38)
[2024-01-02] MEDS ORDERED: HYDROmorphone 2 MG TAB PO PRN (23:38)
[2024-01-02] MEDS: ACETAMINOPHEN TAB 325 MG TAB PO STA (23:45)
[2024-01-02] MEDS: SODIUM CHLORIDE 0.9% 1,000 ML IV SCH (23:46)
[2024-01-02] MEDS ORDERED: HYDROmorphone 1 MG/ML 1 ML SYRINGE IVP PRN (23:47)
[2024-01-03] MEDS: AMPICILLIN-SULBACTAM 3 GM in SODIUM CHLORIDE 0.9% 100 ML IVPB SCH (00:36)
[2024-01-03] MEDS: VANCOMYCIN 1,000 MG in SODIUM CHLORIDE 0.9% 250 ML IVPB ONE (01:37)
[2024-01-03] MEDS ORDERED: CYCLOBENZAPRINE 10 MG TAB PO PRN (08:17)
[2024-01-03] MEDS: DULoxetine HCL 60 MG CAPSULE.DR PO SCH (08:48)
[2024-01-03] MEDS: LEVOTHYROXINE 88 MCG TAB PO SCH (08:48)
[2024-01-03] MEDS: GABAPENTIN 300 MG CAP PO SCH (08:48)
--- NOTE | 2024-01-03 10:10 | P.CNOR ---
History of Present Illness - [facility] Consult date: 01/03/24 Consult reason: other (Right elbow pain and swelling) History of present illness: The patient is a 63-year-old who presented to the emergency department with increasing swelling and redness to the right elbow. He states that he noticed his elbow to about 3 days ago that has significantly worsened yesterday. The patient saw Dr. Mensah yesterday in the office and he was sent to the emergency department for IV antibiotics. The patient denies fever or chills. There was an area at the tip of the elbow that was draining but is no longer draining at this time. Orthopedics is consulted for further evaluation and care. The patient states that his elbow is feeling better since the antibiotics were started and he has noticed a decrease in swelling slightly already. Review of Systems Constitutional: Denies chills, Denies fatigue, Denies fever Cardiovascular: Denies chest pain, Denies shortness of breath Respiratory: Denies cough Gastrointestinal: Denies diarrhea, Denies nausea, Denies vomiting Musculoskeletal: right: elbow pain, elbow stiffness, elbow swelling Past Medical History Past Medical History: Osteoarthritis (OA), Thyroid Disorder Additional Past Medical History / Comment(s): NECK AND BACK PAIN History of Any Multi-Drug Resistant Organisms: None Reported Past Surgical History: Appendectomy, Tonsillectomy Additional Past Surgical History / Comment(s): BACK INJECTIONS Past Anesthesia/Blood Transfusion Reactions: No Reported Reaction Past Psychological History: Depression Past Alcohol Use History: None Reported Additional Past Alcohol Use History / Comment(s): SMOKES < 1 PPD SINCE AGE 13 Past Drug Use History: None Reported - Past Family History Mother Family Medical History: No Reported History Medications and Allergies Home Medications Medication Instructions Recorded Confirmed Type Cyclobenzaprine [Flexeril] 10 mg PO DAILY PRN 12/12/17 01/03/24 History DULoxetine HCL [Cymbalta] 60 mg PO BID 12/12/17 01/03/24 History Gabapentin [Neurontin] 300 mg PO BID 12/12/17 01/03/24 History HYDROcodone/APAP 5-325MG [[place] 1 tab PO Q6HR PRN 12/12/17 01/03/24 History 5-325] Meloxicam [Mobic] 7.5 mg PO BID 12/12/17 01/03/24 History Fluticasone/Umeclidin/Vilanter 1 puff INHALATION RT-DAILY 01/03/24 01/03/24 History [Trelegy Ellipta 100-62.5-25] Levothyroxine Sodium [Synthroid] 88 mcg PO DAILY 01/03/24 01/03/24 History Allergies Allergy/AdvReac Type Severity Reaction Status Date / Time No Known Allergies Allergy Verified 01/03/24 07:55 Physical Examination the patient is a 63-year-old male in no acute distress. He is alert and oriented 3. Exam of the right elbow reveals diffuse swelling extended to the mid forearm past the elbow. There is a wound to the olecranon bursa without active drainage at this time. There is erythema present. Neurological and circulatory status is intact. Results X-ray of the right elbow reveals no acute fracture, dislocation, or osteoarthritis. - Labs Labs: Abnormal Lab Results - Last 24 Hours (Table) 01/02/24 Range/Units 20:13 Sodium 135 L (137-145) mmol/L BUN 21 H (9-20) mg/dL H & H 01/02/24 Range/Units 20:13 Hgb 15.2 (13.0-17.5) gm/dL Hct 45.3 (39.0-53.0) % Result Diagrams: 01/02/24 20:13 01/02/24 20:13 Assessment and Plan (1) Septic olecranon bursitis Current Visit: Yes Status: Acute Code(s): M71.129 - OTHER INFECTIVE BURSITIS, UNSPECIFIED ELBOW SNOMED Code(s): 192643838 (2) Right elbow pain Current Visit: Yes Status: Acute Code(s): M25.521 - PAIN IN RIGHT ELBOW SNOMED Code(s): 20619487 Plan: The clinical and x-ray findings were discussed with the patient. The case was discussed with Dr. Florian. Continue IV antibiotic therapy. The elbow seems to be improving slightly since starting IV antibiotics and we will await at least 24 hours of antibiotics. If the patient continues to improve, no surgical intervention is needed. If the elbow continues to worsen or does not improve significantly, the patient will need an incision and drainage. The patient may eat today but will be NPO at midnight. We will continue to follow patient closely make further recommendations if needed.
--- NOTE | 2024-01-03 11:36 | P.HPIM ---
History of Present Illness H&P Date: 01/03/24 HISTORY OF PRESENT ILLNESS: 63-year-old with active medical history of cervicalgia and chronic degenerative disc disease of the cervical spine along with radiculopathy who also has chronic lower back pain, chronic depression, hypothyroidism, chronic pain syndrome and mildly elevated blood pressure with BPH who apparently was in [place] recently was doing some outdoor work will get bit by bugs many areas of his upper extremity upon returning to [place] developed to have slightly but worsening swelling and discomfort in the right elbow with significant infected bursitis. Was seen in the office January 02, 2024 with severe redness discomfort irritation fluctuation and severe infected bursitis was instructed to come to the emergency department to be admitted for IV antibiotics will need to see orthopedic and probably need to have his elbow I&D and/with culture and probably require longer term IV antibiotics. Will be seen infectious disease as well. Emergency was instructed to initiate patient on vancomycin and Unasyn and consult orthopedic. REVIEW OF SYSTEMS: CONSTITUTIONAL: Well-developed no acute respiratory distress. EYES: No icterus sclerae, no conjunctivitis. EARS, NOSE, MOUTH, THROAT, and FACE: No sore throat, lymphadenopathy, carotid bruits or deformity. Had significant cervicalgia and irritation discomfort in the neck area. RESPIRATORY: No SOB cough or wheezes. CARDIOVASCULAR: No CP, Palpitation, PND, Orthopnea, or angina. GASTROINTESTINAL: No Abd pain, Nausea or vomiting, no Diarrhea or constipation, No GI Bleed, no distention or masses. GENITOURINARY: Negative for Hematuria or UTI, no kidney stones. INTEGUMENT/BREAST: Negative for any muscular injury with mild osteoarthritis.. HEMATOLOGIC/LYMPHATIC: Negative for bleed or purpura. MUSCULOSKELTAL: Negative for Myalgia or arthralgia. Severe infected elbow sw elling pain and discomfort with worsening cellulitis going up and down around the bursa of his epicondyle. NEURLOGICAL: No LOC, Sz or syncope, blurred vision dizziness or abnormality.. BEHAVIORAL/PSYCH: Negative. ENDOCRINE: Negative. PHYSICAL EXAMINATION: General Appearance: Alert, cooperative, no distress, appears stated age. Neck HEENT: Supple, no lymphadenopathy, no thyroid enlargement, no carotid bruits. Slight irritation in the cervical spine area. Lungs: Clear to auscultation without crackles or wheezes no rhonchi, no deformity. Chest Wall: Chest wall normal expansion with deep inspiration no tenderness and no deformity was found on exam, no costochondral pain or discomfort. Heart: Regular rate and rhythm, S1, S2 normal, no murmur, rub or gallop. Back: Symmetric, no curvature, ROM normal, no CVA tenderness. Significant pain and discomfort lumbar spine area. Abdomen: Soft, non-tender, bowel sounds active all four quadrants, no masses, no organomegaly. Extremities: Extremities normal, atraumatic, no cyanosis or edema. Right elbow has very large sac with severe bursitis and infection around it with fluctuation and irritation slight decrease mobility redness going around the bursa up and down with induration equal to 5 to 6 inches. Pulses: 2+ and symmetric. Skin: Skin color, texture, tugor normal, no rashes or lesions. Neurologic: Alert oriented x3 cranial nerves II through XII intact, no motor deficit, no abnormal balance or gait. ASSESSMENT AND PLAN: _Severe infected bursitis of the right elbow: Admit patient to the hospital, will start patient on vancomycin and Unasyn, will consult orthopedics for possible I&D and clean the bursa surgically will continue IV antibiotics culture the area and consult infectious disease as well. _Severe cellulitis around the bursa area of his elbow will continue IV antibioti cs continue topical care as well. _Severe radiculopathy of the cervical spine post ACDF of C4-5, C5-6 and C 6 7: Still having significant pain and discomfort has been on meloxicam hydrocodone and gabapentin. _Chronic lower back pain and chronic radiculopathy with bulging disc and stenosis as well has been on conservative management still on hydrocodone, meloxicam and Flexeril. _Hypothyroidism: Remain on levothyroxine 50 mcg daily. _Chronic neuropathy: Mostly affecting the lower extremity has been on gabapentin 300 mg 3 times a day. _Chronic depression: Continue Cymbalta 60 mg daily. _GI prophylaxis: Patient be on Pepcid 20 mg daily. _DVT prophylaxis: Patient will be on subcu Lovenox after surgery. CODE STATUS: Full code. Admit patient to the inpatient service for more than 2 night stay. Past Medical History Past Medical History: Osteoarthritis (OA), Thyroid Disorder Additional Past Medical History / Comment(s): NECK AND BACK PAIN History of Any Multi-Drug Resistant Organisms: None Reported Past Surgical History: Appendectomy, Tonsillectomy Additional Past Surgical History / Comment(s): BACK INJECTIONS Past Anesthesia/Blood Transfusion Reactions: No Reported Reaction Past Psychological History: Depression Past Alcohol Use History: None Reported Additional Past Alcohol Use History / Comment(s): SMOKES < 1 PPD SINCE AGE 13 Past Drug Use History: None Reported - Past Family History Mother Family Medical History: No Reported History Medications and Allergies Home Medications Medication Instructions Recorded Confirmed Type Cyclobenzaprine [Flexeril] 10 mg PO HS 12/12/17 12/18/17 History DULoxetine HCL [Cymbalta] 60 mg PO DAILY 12/12/17 12/12/17 History Gabapentin [Neurontin] 300 mg PO TID 12/12/17 12/12/17 History HYDROcodone/APAP 5-325MG [[place] 1 tab PO Q6HR PRN 12/12/17 12/18/17 History 5-325] Levothyroxine Sodium [Levoxyl] 50 mcg PO DAILY 12/12/17 12/12/17 History Meloxicam [Mobic] 7.5 mg PO DAILY 12/12/17 12/12/17 History Allergies Allergy/AdvReac Type Severity Reaction Status Date / Time No Known Allergies Allergy Verified 01/02/24 20:06 Physical Exam Vitals: Vital Signs Temp Pulse Resp BP Pulse Ox 01/03/24 03:00 66 18 118/87 97 01/02/24 23:30 98.1 F 73 18 125/89 94 L 01/02/24 20:07 99.7 F H 80 19 122/84 Intake and Output 01/02/24 01/02/24 01/03/24 14:59 22:59 06:59 Other: Weight 66.678 kg Results CBC & Chem 7: 01/02/24 20:13 01/02/24 20:13 Labs: Abnormal Lab Results - Last 24 Hours (Table) 01/02/24 Range/Units 20:13 Sodium 135 L (137-145) mmol/L BUN 21 H (9-20) mg/dL
[2024-01-03] MEDS: IPRATROPIUM 0.5 MG/2.5 ML NEBU INHALATION SCH (13:40)
[2024-01-03] MEDS: VANCOMYCIN 1,000 MG in SODIUM CHLORIDE 0.9% 250 ML IVPB SCH (15:16)
[2024-01-03] MEDS: HYDROcodone/APAP 5-325MG 1 EACH TAB PO PRN (18:39)
[2024-01-04 07:40] LABS: African American GFR (CKD) >90 (>60 ml/min/1.73 sqM); Non-African American GFR(CKD) >90 (>60 ml/min/1.73 sqM)
[2024-01-04] MEDS: SYMBICORT 80-4.5 MCG INHALER INHALATION SCH (07:58)
--- NOTE | 2024-01-04 07:59 | P.PN ---
Subjective Progress Note Date: 01/04/24 Principal diagnosis: Right elbow olecranon bursitis The patient is a 63-year-old who presented to the emergency department with increasing swelling and redness to the right elbow. He states that he noticed his elbow to about 3 days ago that has significantly worsened yesterday. The patient saw Dr. Mensah yesterday in the office and he was sent to the emergency department for IV antibiotics. The patient denies fever or chills. There was an area at the tip of the elbow that was draining but is no longer draining at this time. Orthopedics is consulted for further evaluation and care. 01/04/2024: This morning, the patient states the elbow is improving and feeling better. He denies any pain at this time. No new complaints. Objective - Vital Signs Vital signs: Vital Signs Temp 97.5 F L 01/04/24 07:00 Pulse 71 01/04/24 07:00 Resp 16 01/04/24 07:00 BP 150/83 01/04/24 07:00 Pulse Ox 95 01/04/24 07:00 FiO2 Intake & Output 01/03/24 01/04/24 01/04/24 18:59 06:59 18:59 Weight 66.678 kg Other: Voiding Method Toilet # Voids 1 - Exam The patient is a 63-year-old male in no acute distress. He is alert and orient ed 3. Exam of the right elbow reveals improved swelling and erythema. There is a wound to the olecranon bursa without active drainage at this time. Neurological and circulatory status is intact. - Labs CBC & Chem 7: 01/02/24 20:13 01/04/24 07:03 Labs: Abnormal Lab Results - Last 24 Hours (Table) 01/04/24 Range/Units 07:03 Creatinine 0.58 L (0.66-1.25) mg/dL Microbiology - Last 24 Hours (Table) 01/03/24 14:35 Gram Stain - Preliminary Elbow - Right 01/02/24 23:55 Blood Culture - Preliminary Blood Assessment and Plan (1) Septic olecranon bursitis Current Visit: Yes Status: Acute Code(s): M71.129 - OTHER INFECTIVE BURSITIS, UNSPECIFIED ELBOW SNOMED Code(s): 352290557 (2) Right elbow pain Current Visit: Yes Status: Acute Code(s): M25.521 - PAIN IN RIGHT ELBOW SNOMED Code(s): 37642756 Plan: The clinical and x-ray findings were discussed with the patient. The case was discussed with Dr. Florian. Continue IV antibiotic therapy. The elbow is improving with a decrease in swelling and redness. If the patient continues to improve, no surgical intervention is needed. If the elbow worsens or does not improve significantly, the patient will need an incision and drainage. The patient may eat today. We will continue to follow patient closely make further recommendations if needed.
--- NOTE | 2024-01-04 08:29 | P.CONS ---
History of Present Illness - Reason for Consult Consult date: 01/03/24 Infectious bursitis Requesting physician: Lori Gregg - Chief Complaint Right elbow pain swelling redness x 2 days - History of Present Illness Patient is a 63-year-old male with a past medical history significant for osteomyelitis hypothyroidism depression, patient presenting to the ER for evaluation of right elbow pain and swelling patient mention couple weeks ago he did scrape his right elbow subsequently has developed a scab 2 days ago he pulled up on the scab and subsequently noticed to have some purulent drainage from the wound patient did applied Neosporin and dry. However subsequent noticed to having increasing swelling redness and erythema of the right elbow area patient was evaluated by his PCP who subsequent direct the patient to go to the ER patient denies high-grade fever did have a low-grade fever of 99.7 on presentation to the hospital patient was not tachycardic hypotensive or hypoxic and no need for supplemental oxygen white count was 9.9 creatinine 0.75 electrolytes are normal liver isms are normal blood cultures obtained which are currently pending patient did have elbow x-ray no evidence for acute fracture patient was started on Unasyn and vancomycin infectious disease was consulted for further management of antibiotic therapy Review of Systems Positive point and negatives has been mentioned in the HPI, complete review of systems was performed and all other systems are negative Past Medical History Past Medical History: Osteoarthritis (OA), Thyroid Disorder Additional Past Medical History / Comment(s): NECK AND BACK PAIN History of Any Multi-Drug Resistant Organisms: None Reported Past Surgical History: Appendectomy, Tonsillectomy Additional Past Surgical History / Comment(s): BACK INJECTIONS Past Anesthesia/Blood Transfusion Reactions: No Reported Reaction Past Psychological History: Depression Past Alcohol Use History: None Reported Additional Past Alcohol Use History / Comment(s): SMOKES < 1 PPD SINCE AGE 13 Past Drug Use History: None Reported - Past Family History Mother Family Medical History: No Reported History Medications and Allergies Home Medications Medication Instructions Recorded Confirmed Type Cyclobenzaprine [Flexeril] 10 mg PO DAILY PRN 12/12/17 01/03/24 History DULoxetine HCL [Cymbalta] 60 mg PO BID 12/12/17 01/03/24 History Gabapentin [Neurontin] 300 mg PO BID 12/12/17 01/03/24 History HYDROcodone/APAP 5-325MG [[place] 1 tab PO Q6HR PRN 12/12/17 01/03/24 History 5-325] Meloxicam [Mobic] 7.5 mg PO BID 12/12/17 01/03/24 History Fluticasone/Umeclidin/Vilanter 1 puff INHALATION RT-DAILY 01/03/24 01/03/24 History [Trelegy Ellipta 100-62.5-25] Levothyroxine Sodium [Synthroid] 88 mcg PO DAILY 01/03/24 01/03/24 History Allergies Allergy/AdvReac Type Severity Reaction Status Date / Time No Known Allergies Allergy Verified 01/03/24 07:55 Physical Exam Vitals: Vital Signs Temp Pulse Resp BP Pulse Ox 01/03/24 11:28 70 18 133/87 96 01/03/24 07:42 98.2 F 72 16 117/82 96 01/03/24 06:29 98.2 F 63 16 127/90 96 01/03/24 03:00 66 18 118/87 97 01/02/24 23:30 98.1 F 73 18 125/89 94 L 01/02/24 20:07 99.7 F H 80 19 122/84 Intake and Output 01/02/24 01/03/24 01/03/24 22:59 06:59 14:59 Other: Weight 66.678 kg GENERAL DESCRIPTION: Middle-aged male lying in bed, no distress. No tachypnea or accessory muscle of respiration use. HEENT: Shows Pallor , no scleral icterus. Oral mucous membrane is dry. No pharyngeal erythema or thrush NECK: Trachea central, no thyromegaly. LUNGS: Unlabored breathing. Clear to auscultation anteriorly. No wheeze or crackle. HEART: S1, S2, regular rate and rhythm. No loud murmur ABDOMEN: Soft, no tenderness , guarding or rigidity, no organomegaly EXTREMITIES: Right lateral elbow did have an area of swelling redness warmth did have a small wound that was cultured SKIN: No rash, no masses palpable. NEUROLOGICAL: The patient is awake, alert, oriented x3, mood and affect normal. Results CBC & Chem 7: 01/02/24 20:13 01/04/24 07:03 Labs: Abnormal Lab Results - Last 24 Hours (Table) 01/02/24 Range/Units 20:13 Sodium 135 L (137-145) mmol/L BUN 21 H (9-20) mg/dL Assessment and Plan (1) Cellulitis Current Visit: Yes Status: Acute Code(s): L03.90 - CELLULITIS, UNSPECIFIED SNOMED Code(s): 810399553 (2) Septic olecranon bursitis Current Visit: Yes Status: Acute Code(s): M71.129 - OTHER INFECTIVE BURSITIS, UNSPECIFIED ELBOW SNOMED Code(s): 537485606 Plan: 1patient presented to hospital with right elbow pain swelling and redness likely representing septic olecranon bursitis and likely from gram-positive skin mela 2-local culture has been obtained to guide further antibiotic therapy 3-patient benefit from surgical I&D and deep culture 4vancomycin pharmacy to dose target trough of 15 while watching kidney function and Vanco trough closely and Unasyn to provide adequate empirically biotic coverage Question concern answered We will follow on clinical condition and cultures to further adjust medication if needed Thank you for this consultation we will follow the patient along with you Dictation was produced using [employer] dictation software. please excuse any grammatical, word or spelling errors. Time with Patient: Greater than 30
--- NOTE | 2024-01-04 16:38 | P.PN ---
Subjective Progress Note Date: 01/04/24 Principal diagnosis: reason for follow-up is right elbow septic olecranon bursitis Patient is a 63-year-old male with a past medical history significant for osteomyelitis hypothyroidism depression, patient presenting to the ER for evaluation of right elbow pain and swelling patient has been diagnosed with right elbow septic olecranon bursitis Ortho evaluate the patient recommended no surgical intervention. On today's evaluation that is 01/04/2024,the patient remains to be afebrile, patient is on room air not requiring supplemental oxygen and denies any shortness of breath no chest pain or cough.Patient denies having any nausea or vomiting, no abdominal pain and no diarrhea has been reported, right elbow pain swelling redness slightly decreased. Patient did have a creatinine 0.58 cultures currently pending Objective - Vital Signs Vital signs: Vital Signs Temp 97.5 F L 01/04/24 15:00 Pulse 72 01/04/24 15:00 Resp 17 01/04/24 15:00 BP 158/88 01/04/24 15:00 Pulse Ox 95 01/04/24 15:00 FiO2 Intake & Output 01/03/24 01/04/24 01/04/24 18:59 06:59 18:59 Weight 66.678 kg Other: Voiding Method Toilet Toilet # Voids 1 1 - Exam GENERAL DESCRIPTION: An elderly male lying in bed in no distress RESPIRATORY SYSTEM: Unlabored breathing , decreased breath sounds at bases HEART: S1 S2 regular rate and rhythm , ABDOMEN: Soft , no tenderness EXTREMITIES: Right elbow area swelling redness slightly decreased - Labs CBC & Chem 7: 01/02/24 20:13 01/04/24 07:03 Labs: Abnormal Lab Results - Last 24 Hours (Table) 01/04/24 Range/Units 07:03 Creatinine 0.58 L (0.66-1.25) mg/dL Microbiology - Last 24 Hours (Table) 01/03/24 03:50 Blood Culture - Preliminary Blood 01/03/24 14:35 Gram Stain - Preliminary Elbow - Right Wound Culture - Preliminary 01/02/24 23:55 Blood Culture - Preliminary Blood Assessment and Plan (1) Cellulitis Current Visit: Yes Status: Acute Code(s): L03.90 - CELLULITIS, UNSPECIFIED SNOMED Code(s): 321402762 (2) Septic olecranon bursitis Current Visit: Yes Status: Acute Code(s): M71.129 - OTHER INFECTIVE BURSITIS, UNSPECIFIED ELBOW SNOMED Code(s): 800886412 Plan: 1patient presented to hospital with right elbow pain swelling and redness likely representing septic olecranon bursitis and likely from gram-positive skin mela 2-local culture has been obtained to guide further antibiotic therapy 3-patient has been eval by orthopedics and recommending no surgical intervention 4patient did have symptomatic improvement continue with vancomycin pharmacy to dose target trough of 15 while watching kidney function and Vanco trough closely and Unasyn while waiting for the culture to finalize Dictation was produced using [employer] dictation software. please excuse any grammatical, word or spelling errors. Time with Patient: Less than 30
--- NOTE | 2024-01-05 11:34 | P.PN ---
Subjective Progress Note Date: 01/05/24 Principal diagnosis: Right elbow olecranon bursitis The patient is a 63-year-old who presented to the emergency department with increasing swelling and redness to the right elbow. He states that he noticed his elbow to about 3 days ago that has significantly worsened yesterday. The patient saw Dr. Mensah yesterday in the office and he was sent to the emergency department for IV antibiotics. The patient denies fever or chills. There was an area at the tip of the elbow that was draining but is no longer draining at this time. Orthopedics is consulted for further evaluation and care. 01/05/2024: This morning, the patient states the elbow is improving and feeling better. He denies any pain at this time. The elbow has opened and is draining. No new complaints. Objective - Vital Signs Vital signs: Vital Signs Temp 97.6 F 01/05/24 07:00 Pulse 62 01/05/24 08:00 Resp 17 01/05/24 08:00 BP 137/81 01/05/24 07:00 Pulse Ox 96 01/05/24 07:00 FiO2 Intake & Output 01/04/24 01/05/24 01/05/24 18:59 06:59 18:59 Intake Total 0 110 Balance 0 110 Intake: Oral 0 110 Other: Voiding Method Toilet Toilet Toilet # Voids 1 2 - Exam The patient is a 63-year-old male in no acute distress. He is alert and oriented 3. Exam of the right elbow reveals improved swelling and erythema. There is a wound to the olecranon bursa without active drainage at this time. The area proximal to the olecranon has sloughed some skin and is now draining a clear yellow drainage, the area has softened since then. Neurological and circulatory status is intact. - Labs CBC & Chem 7: 01/02/24 20:13 01/04/24 07:03 Labs: Microbiology - Last 24 Hours (Table) 01/03/24 14:35 Gram Stain - Final Elbow - Right Wound Culture - Final 01/02/24 23:55 Blood Culture - Preliminary Blood 01/03/24 03:50 Blood Culture - Preliminary Blood Assessment and Plan (1) Septic olecranon bursitis Current Visit: Yes Status: Acute Code(s): M71.129 - OTHER INFECTIVE BURSITIS, UNSPECIFIED ELBOW SNOMED Code(s): 770326699 (2) Right elbow pain Current Visit: Yes Status: Acute Code(s): M25.521 - PAIN IN RIGHT ELBOW SNOMED Code(s): 04773620 Plan: The clinical and x-ray findings were discussed with the patient. The case was discussed with Dr. Florian. Continue IV antibiotic therapy. The elbow is improving with a decrease in swelling and redness. If the patient continues to improve, no surgical intervention is needed. If the elbow worsens or does not improve significantly, the patient will need an incision and drainage. We will continue to follow patient closely make further recommendations if needed.
[2024-01-05 12:46] LABS: African American GFR (CKD) >90 (>60 ml/min/1.73 sqM); Non-African American GFR(CKD) >90 (>60 ml/min/1.73 sqM)
[2024-01-05] MEDS ORDERED: VANCOMYCIN TROUGH DUE 1 EACH MISC MISCELLANE ONE (13:00)
--- NOTE | 2024-01-05 15:12 | P.PN ---
Subjective Progress Note Date: 01/05/24 Principal diagnosis: reason for follow-up is right elbow septic olecranon bursitis Patient is a 63-year-old male with a past medical history significant for osteomyelitis hypothyroidism depression, patient presenting to the ER for evaluation of right elbow pain and swelling patient has been diagnosed with right elbow septic olecranon bursitis Ortho evaluate the patient recommended no surgical intervention. On today's evaluation that is 01/05/2024, the patient continues to be afebrile, the patient is on room air and breathing comfortably, the Pt denies having any chest pain or cough, the patient denies having any abdominal pain no vomiting or any diarrhea pain and swelling to the right elbow and has decreased however the patient mention noted some drainage. Patient did have a creatinine 0.50 culture has been negative so far Objective - Vital Signs Vital signs: Vital Signs Temp 97.6 F 01/05/24 07:00 Pulse 62 01/05/24 08:00 Resp 17 01/05/24 08:00 BP 137/81 01/05/24 07:00 Pulse Ox 96 01/05/24 07:00 FiO2 Intake & Output 01/04/24 01/05/24 01/05/24 18:59 06:59 18:59 Intake Total 0 110 Balance 0 110 Intake: Oral 0 110 Other: Voiding Method Toilet Toilet Toilet # Voids 1 2 - Exam GENERAL DESCRIPTION: An elderly male lying in bed in no distress RESPIRATORY SYSTEM: Unlabored breathing , decreased breath sounds at bases HEART: S1 S2 regular rate and rhythm , ABDOMEN: Soft , no tenderness EXTREMITIES: Right elbow area swelling redness slightly decreased - Labs CBC & Chem 7: 01/02/24 20:13 01/05/24 12:10 Labs: Microbiology - Last 24 Hours (Table) 01/03/24 14:35 Gram Stain - Final Elbow - Right Wound Culture - Final 01/02/24 23:55 Blood Culture - Preliminary Blood 01/03/24 03:50 Blood Culture - Preliminary Blood Assessment and Plan (1) Cellulitis Current Visit: Yes Status: Acute Code(s): L03.90 - CELLULITIS, UNSPECIFIED SNOMED Code(s): 936273874 (2) Septic olecranon bursitis Current Visit: Yes Status: Acute Code(s): M71.129 - OTHER INFECTIVE BURSITIS, UNSPECIFIED ELBOW SNOMED Code(s): 523607756 Plan: 1patient presented to hospital with right elbow pain swelling and redness likely representing septic olecranon bursitis and likely from gram-positive skin mela 2-local culture has been obtained and so far negative 3-patient has been eval by orthopedics and recommending no surgical intervention 4patient did have symptomatic improvement with a culture negative for any resistant pathogen we will discontinue vancomycin continue with Unasyn if the area started to drain nursing staff is advised to get culture and will reevaluate the patient tomorrow Dictation was produced using [employer] dictation software. please excuse any grammatical, word or spelling errors. Time with Patient: Less than 30
--- NOTE | 2024-01-05 18:23 | P.PN ---
Subjective Progress Note Date: 01/04/24 HISTORY OF PRESENT ILLNESS: 63-year-old with active medical history of cervicalgia and chronic degenerative disc disease of the cervical spine along with radiculopathy who also has chronic lower back pain, chronic depression, hypothyroidism, chronic pain syndrome and mildly elevated blood pressure with BPH who apparently was in [place] recently was doing some outdoor work will get bit by bugs many areas of his upper extremity upon returning to [place] developed to have slightly but worsening swelling and discomfort in the right elbow with significant infected bursitis. Was seen in the office January 02, 2024 with severe redness discomfort irritation fluctuation and severe infected bursitis was instructed to come to the emergency department to be admitted for IV antibiotics will need to see orthopedic and probably need to have his elbow I&D and/with culture and probably require longer term IV antibiotics. Will be seen infectious disease as well. Emergency was instructed to initiate patient on vancomycin and Unasyn and consult orthopedic. 01/04/2024:He was evaluated by infectious disease originally and the plan was for possible need to open the elbow surgically no significant increase in white blood cell with aggressive medical management he is responding well culture remain negative at this point from the site of the elbow done by infectious disease. Continue vancomycin for now till at least some evidence of culture back to decide on further management and Ortho still on standby for possible need for intervention. REVIEW OF SYSTEMS: CONSTITUTIONAL: Well-developed no acute respiratory distress. EYES: No icterus sclerae, no conjunctivitis. EARS, NOSE, MOUTH, THROAT, and FACE: No sore throat, lymphadenopathy, carotid bruits or deformity. Had significant cervicalgia and irritation discomfort in the neck area. RESPIRATORY: No SOB cough or wheezes. CARDIOVASCULAR: No CP, Palpitation, PND, Orthopnea, or angina. GASTROINTESTINAL: No Abd pain, Nausea or vomiting, no Diarrhea or constipation, No GI Bleed, no distention or masses. GENITOURINARY: Negative for Hematuria or UTI, no kidney stones. INTEGUMENT/BREAST: Negative for any muscular injury with mild osteoarthritis.. HEMATOLOGIC/LYMPHATIC: Negative for bleed or purpura. MUSCULOSKELTAL: Negative for Myalgia or arthralgia. Severe infected elbow sw elling pain and discomfort with worsening cellulitis going up and down around the bursa of his epicondyle. NEURLOGICAL: No LOC, Sz or syncope, blurred vision dizziness or abnormality.. BEHAVIORAL/PSYCH: Negative. ENDOCRINE: Negative. PHYSICAL EXAMINATION: General Appearance: Alert, cooperative, no distress, appears stated age. Neck HEENT: Supple, no lymphadenopathy, no thyroid enlargement, no carotid bruits. Slight irritation in the cervical spine area. Lungs: Clear to auscultation without crackles or wheezes no rhonchi, no deformity. Chest Wall: Chest wall normal expansion with deep inspiration no tenderness and no deformity was found on exam, no costochondral pain or discomfort. Heart: Regular rate and rhythm, S1, S2 normal, no murmur, rub or gallop. Back: Symmetric, no curvature, ROM normal, no CVA tenderness. Significant pain and discomfort lumbar spine area. Abdomen: Soft, non-tender, bowel sounds active all four quadrants, no masses, no organomegaly. Extremities: Extremities normal, atraumatic, no cyanosis or edema. Right elbow has very large sac with severe bursitis and infection around it with fluctuation and irritation slight decrease mobility redness going around the bursa up and down with induration equal to 5 to 6 inches. Pulses: 2+ and symmetric. Skin: Skin color, texture, tugor normal, no rashes or lesions. Neurologic: Alert oriented x3 cranial nerves II through XII intact, no motor deficit, no abnormal balance or gait. ASSESSMENT AND PLAN: _Severe infected bursitis of the right elbow: Was started on vancomycin management seen infectious disease and orthopedic no surgery done yet waiting to see if patient respond to treatment management for now. _Severe cellulitis around the bursa area of his elbow will continue IV antibiotics continue topical care as well. _Severe radiculopathy of the cervical spine post ACDF of C4-5, C5-6 and C 6 7: Still having significant pain and discomfort has been on meloxicam hydrocodone and gabapentin. _Chronic lower back pain and chronic radiculopathy with bulging disc and stenosis as well has been on conservative management still on hydrocodone, meloxicam and Flexeril. _Hypothyroidism: Remain on levothyroxine 50 mcg daily. _Chronic pain management: Remain on hydrocodone along with ibuprofen. _Chronic neuropathy: Mostly affecting the lower extremity has been on gabapentin 300 mg 3 times a day. _Chronic depression: Continue Cymbalta 60 mg daily. _GI prophylaxis: Patient be on Pepcid 20 mg daily. Discussion: Patient seen infectious disease, culture was done remain on vancomycin for now orthopedics seen patient for possible need to do I and D of the elbow with surgical/waiting to see if there is no respond with medical management surgery would be an option. Objective - Vital Signs Vital signs: Vital Signs Temp 97.5 F L 01/04/24 07:00 Pulse 71 01/04/24 07:00 Resp 16 01/04/24 07:00 BP 150/83 01/04/24 07:00 Pulse Ox 95 01/04/24 07:00 FiO2 Intake & Output 01/03/24 01/04/24 01/04/24 18:59 06:59 18:59 Weight 66.678 kg Other: Voiding Method Toilet Toilet # Voids 1 - Labs CBC & Chem 7: 01/02/24 20:13 01/05/24 12:10 Labs: Abnormal Lab Results - Last 24 Hours (Table) 01/04/24 Range/Units 07:03 Creatinine 0.58 L (0.66-1.25) mg/dL Microbiology - Last 24 Hours (Table) 01/03/24 14:35 Gram Stain - Preliminary Elbow - Right Wound Culture - Preliminary 01/02/24 23:55 Blood Culture - Preliminary Blood
--- NOTE | 2024-01-05 18:35 | P.PN ---
Subjective Progress Note Date: 01/05/24 HISTORY OF PRESENT ILLNESS: 63-year-old with active medical history of cervicalgia and chronic degenerative disc disease of the cervical spine along with radiculopathy who also has chronic lower back pain, chronic depression, hypothyroidism, chronic pain syndrome and mildly elevated blood pressure with BPH who apparently was in [place] recently was doing some outdoor work will get bit by bugs many areas of his upper extremity upon returning to [place] developed to have slightly but worsening swelling and discomfort in the right elbow with significant infected bursitis. Was seen in the office January 02, 2024 with severe redness discomfort irritation fluctuation and severe infected bursitis was instructed to come to the emergency department to be admitted for IV antibiotics will need to see orthopedic and probably need to have his elbow I&D and/with culture and probably require longer term IV antibiotics. Will be seen infectious disease as well. Emergency was instructed to initiate patient on vancomycin and Unasyn and consult orthopedic. 01/04/2024:He was evaluated by infectious disease originally and the plan was for possible need to open the elbow surgically no significant increase in white blood cell with aggressive medical management he is responding well culture remain negative at this point from the site of the elbow done by infectious disease. Continue vancomycin for now till at least some evidence of culture back to decide on further management and Ortho still on standby for possible need for intervention. 01/05/2024: Patient responded to treatment as really good at this point and holding off on doing any surgical intervention he had another area with the skin become skin around it but the induration of the cellulitis has improved si gnificantly over the last 24 hours _Right lower lobe pneumonia: Most likely aspiration with possible close community-acquired pneumonia: Will switch antibiotic management to probably vancomycin and cefepime per infectious disease seen patient. Seems to respond very well to treatment. Discharge home_Right lower lobe pneumonia: Most likely aspiration with possible close community-acquired pneumonia: Will switch antibiotic management to probably vancomycin and cefepime per infectious disease seen patient. Seems to respond very well to treatment. Patient seen today for his antibiotic management was switch to Unasyn from vancomycin Pain is much better so far under control on smaller dose of hydrocodone along with his gabapentin. REVIEW OF SYSTEMS: CONSTITUTIONAL: Well-developed no acute respiratory distress. EYES: No icterus sclerae, no conjunctivitis. EARS, NOSE, MOUTH, THROAT, and FACE: No sore throat, lymphadenopathy, carotid bruits or deformity. Had significant cervicalgia and irritation discomfort in the neck area. RESPIRATORY: No SOB cough or wheezes. CARDIOVASCULAR: No CP, Palpitation, PND, Orthopnea, or angina. GASTROINTESTINAL: No Abd pain, Nausea or vomiting, no Diarrhea or constipation, No GI Bleed, no distention or masses. GENITOURINARY: Negative for Hematuria or UTI, no kidney stones. INTEGUMENT/BREAST: Negative for any muscular injury with mild osteoarthritis.. HEMATOLOGIC/LYMPHATIC: Negative for bleed or purpura. MUSCULOSKELTAL: Negative for Myalgia or arthralgia. Severe infected elbow swelling pain and discomfort with worsening cellulitis going up and down around the bursa of his epicondyle. NEURLOGICAL: No LOC, Sz or syncope, blurred vision dizziness or abnormality.. BEHAVIORAL/PSYCH: Negative. ENDOCRINE: Negative. PHYSICAL EXAMINATION: General Appearance: Alert, cooperative, no distress, appears stated age. Neck HEENT: Supple, no lymphadenopathy, no thyroid enlargement, no carotid bruits. Slight irritation in the cervical spine area. Lungs: Clear to auscultation without crackles or wheezes no rhonchi, no deformity. Chest Wall: Chest wall normal expansion with deep inspiration no tenderness and no deformity was found on exam, no costochondral pain or discomfort. Heart: Regular rate and rhythm, S1, S2 normal, no murmur, rub or gallop. Back: Symmetric, no curvature, ROM normal, no CVA tenderness. Significant pain and discomfort lumbar spine area. Abdomen: Soft, non-tender, bowel sounds active all four quadrants, no masses, no organomegaly. Extremities: Extremities normal, atraumatic, no cyanosis or edema. Right elbow has very large sac with severe bursitis and infection around it with fluctuation and irritation slight decrease mobility redness going around the bursa up and down with induration equal to 5 to 6 inches. Pulses: 2+ and symmetric. Skin: Skin color, texture, tugor normal, no rashes or lesions. Neurologic: Alert oriented x3 cranial nerves II through XII intact, no motor deficit, no abnormal balance or gait. ASSESSMENT AND PLAN: _Severe infected [place] BURSITIS of the right elbow: Responded very well to IV antibiotics switch back to Unasyn from vancomycin is doing better does not require any intervention surgically. _Severe cellulitis around the bursa area of his elbow with the new area of concern on the lateral side despite the overall cellulitis area has improved, he was switched to Unasyn continue current management. _Severe radiculopathy of the cervical spine post ACDF of C4-5, C5-6 and C 6 7: Still having significant pain and discomfort has been on meloxicam hydrocodone and gabapentin. _Chronic lower back pain and chronic radiculopathy with bulging disc and stenosis as well has been on conservative management still on hydrocodone, meloxicam and Flexeril. _Hypothyroidism: Remain on levothyroxine 50 mcg daily. _Chronic pain management: Remain on hydrocodone along with ibuprofen. _Chronic neuropathy: Mostly affecting the lower extremity has been on gabapentin 300 mg 3 times a day. _Chronic depression: Continue Cymbalta 60 mg daily. _GI prophylaxis: Patient be on Pepcid 20 mg daily. Discussion: Continue medical management no need for any surgical intervention the patient seem to respond very well to treatment. Objective - Vital Signs Vital signs: Vital Signs Temp 98.3 F 01/05/24 15:00 Pulse 69 01/05/24 15:00 Resp 17 01/05/24 15:00 BP 113/70 01/05/24 15:00 Pulse Ox 96 01/05/24 15:00 FiO2 Intake & Output 01/04/24 01/05/24 01/05/24 18:59 06:59 18:59 Intake Total 0 228 Balance 0 228 Intake: Oral 0 228 Other: Voiding Method Toilet Toilet Toilet # Voids 1 2 4 - Labs CBC & Chem 7: 01/02/24 20:13 01/05/24 12:10 Labs: Abnormal Lab Results - Last 24 Hours (Table) 01/05/24 Range/Units 12:10 Creatinine 0.50 L (0.66-1.25) mg/dL Microbiology - Last 24 Hours (Table) 01/03/24 03:50 Blood Culture - Preliminary Blood 01/03/24 14:35 Gram Stain - Final Elbow - Right Wound Culture - Final 01/02/24 23:55 Blood Culture - Preliminary Blood
[2024-01-06 02:48] VITALS: RESP 16
[2024-01-06 07:33] VITALS: BP 134/82; PULSE 74; TEMP 98.1
[2024-01-06] MEDS ORDERED: DULoxetine HCL 60 MG CAPSULE.DR PO ONE ×2 (08:02→20:13)
[2024-01-06] MEDS ORDERED: LEVOTHYROXINE 88 MCG TAB ONE (08:03)
[2024-01-06] MEDS ORDERED: GABAPENTIN 300 MG CAP ONE ×2 (08:03→20:13)
[2024-01-06] MEDS ORDERED: AMPICILLIN-SULBACTAM 3 GM VIAL ONE ×3 (12:03→23:24)
[2024-01-06] MEDS ORDERED: SODIUM CHLORIDE 0.9% 100 ML ONE ×3 (12:03→23:24)
[2024-01-06] MEDS ORDERED: HYDROcodone/APAP 5-325MG 1 EACH TAB ONE (12:19)
[2024-01-07] MEDS ORDERED: SODIUM CHLORIDE 0.9% 100 ML ONE ×3 (05:26→16:41)
[2024-01-07] MEDS ORDERED: AMPICILLIN-SULBACTAM 3 GM VIAL ONE ×3 (05:26→16:41)
[2024-01-07] MEDS ORDERED: SODIUM CHLORIDE 0.9% 1,000 ML BAG ONE ×2 (07:15→08:50)
[2024-01-07] MEDS ORDERED: IPRATROPIUM 0.5 MG/2.5 ML NEBU INHALATION ONE (07:51)
[2024-01-07] MEDS ORDERED: DULoxetine HCL 60 MG CAPSULE.DR PO ONE ×2 (09:26→20:21)
[2024-01-07] MEDS ORDERED: LEVOTHYROXINE 88 MCG TAB ONE (09:27)
[2024-01-07] MEDS ORDERED: GABAPENTIN 300 MG CAP ONE ×2 (09:27→20:27)
[2024-01-08] MEDS ORDERED: SODIUM CHLORIDE 0.9% 100 ML ONE ×3 (00:20→09:35)
[2024-01-08] MEDS ORDERED: AMPICILLIN-SULBACTAM 3 GM VIAL ONE ×3 (00:20→09:35)
[2024-01-08] MEDS ORDERED: DULoxetine HCL 60 MG CAPSULE.DR PO ONE (09:35)
[2024-01-08] MEDS ORDERED: LEVOTHYROXINE 88 MCG TAB ONE (09:35)
[2024-01-08] MEDS ORDERED: GABAPENTIN 300 MG CAP ONE (09:36)
--- NOTE | 2024-02-03 10:57 | CDI ---
Documentation Clarification Form Date: 02/03/2024 From: HOPE Rudd Admit Date: 01/03/2024 12:10:00 PM Patient Name: Zoran Fraga Visit Number: [id number] Discharge Date: 01/08/2024 01:45:00 PM ATTENTION: The Clinical Documentation Specialists (CDI) and [facility] Coding Staff appreciate your assistance in clarifying documentation. Please respond to the clarification below the line at the bottom and electronically sign. The CDI & [facility] Coding staff will review the response and follow-up if needed. Please note: Queries are made part of the Legal Health Record. If you have any questions, please contact the author of this message via ITS. Doctor/Provider: Helio Mensah There is documentation of Right lower lobepneumonia: Most likely aspiration with possible closecommunity-acquiredpneumonia on Progress note 01/04. Additional clarification is requested. History/Risk Factors: Patient presented with R elbow infection. Progress Note 01/04 indicates a diagnosis of RLL pneumonia, likely aspiration. Documentation also states Will switch antibiotic management to probably vancomycin and cefepime per infectious disease seen patient Clinical Indicators: no chest Xray found to correlate Treatment: antibiotics Can you please clarify this documentation of pneumonia? [ XX ] RLL pneumonia, POA [ ] RLL pneumonia, not POA [ ] Aspiration pneumonia, POA [ ] Aspiration pneumonia, not POA [ ] No pneumonia [ ] Other, please specify [ ] Unable to determine MTDD
== END 2024-01-08 13:45 | disposition home or self-care (01) | DRG 557 ==
LOC: EC 19:19 → 6NMEDSUR 23:53 → OBSVTOIN 01-03 12:10 → 6NMEDSUR 01-03 15:49 → 1SOBS 01-03 19:17 → 6NMEDSUR 01-04 16:51
PROVIDERS: ADMIT Internal Medicine Geriatric Medicine; ATTEND Internal Medicine Geriatric Medicine
DX: M71.121 Other infective bursitis, right elbow (principal); J18.9 Pneumonia, unspecified organism; L03.113 Cellulitis of right upper limb; E03.9 Hypothyroidism, unspecified; G62.9 Polyneuropathy, unspecified; G89.4 Chronic pain syndrome; M50.10 Cervical disc disorder with radiculopathy, unspecified cervical region; F32.A Depression, unspecified; N40.0 Benign prostatic hyperplasia without lower urinary tract symptoms; Z79.890 Hormone replacement therapy; Z79.1 Long term (current) use of non-steroidal anti-inflammatories (NSAID); Z79.899 Other long term (current) drug therapy; Z98.1 Arthrodesis status
CPT/HCPCS: 36415; 80053; 80202; 82565; 83605; 85025; 85027; 87040; 87070; 87205; 96365; 96366; 99285

== ENCOUNTER 2024-09-07 05:01 | Inpatient (IN) | payer MEDICARE ==
--- NOTE | 2024-09-07 05:11 | ED ---
General Adult HPI - General Stated complaint: STANTON Time Seen by Provider: 09/07/24 05:02 - History of Present Illness Initial comments: History is limited by acute of condition. Patient is 64-year-old male presenting today for shortness of breath x 24 hours. No improvement with home inhaler. On EMS arrival patient was tripoding, pulse ox in the low 80s on room air. Patient was placed on CPAP, given a nebulizer treatment and brought to the ER. - Related Data Home Medications Medication Instructions Recorded Confirmed Cyclobenzaprine [Flexeril] 10 mg PO DAILY PRN 12/12/17 09/07/24 DULoxetine HCL [Cymbalta] 60 mg PO BID 12/12/17 09/07/24 Gabapentin [Neurontin] 300 mg PO BID 12/12/17 09/07/24 HYDROcodone/APAP 5-325MG [[place] 1 tab PO Q6HR PRN 12/12/17 09/07/24 5-325] Meloxicam [Mobic] 7.5 mg PO BID 12/12/17 09/07/24 Fluticasone/Umeclidin/Vilanter 1 puff INHALATION RT-DAILY 01/03/24 09/07/24 [Trelegy Ellipta 100-62.5-25] Levothyroxine Sodium [Synthroid] 88 mcg PO DAILY 01/03/24 09/07/24 Megestrol [Megace] 400 mg PO DAILY 09/07/24 09/07/24 Pantoprazole [Protonix] 40 mg PO DAILY 09/07/24 09/07/24 Allergies Allergy/AdvReac Type Severity Reaction Status Date / Time No Known Allergies Allergy Verified 09/07/24 09:25 Review of Systems ROS Statement: Those systems with pertinent positive or pertinent negative responses have been documented in the HPI. ROS Other: All systems not noted in ROS Statement are negative. Limitations: ROS unobtainable due to patients medical condition Past Medical History Past Medical History: Osteoarthritis (OA), Thyroid Disorder Additional Past Medical History / Comment(s): NECK AND BACK PAIN History of Any Multi-Drug Resistant Organisms: None Reported Past Surgical History: Appendectomy, Tonsillectomy Additional Past Surgical History / Comment(s): BACK INJECTIONS Past Anesthesia/Blood Transfusion Reactions: No Reported Reaction Past Psychological History: Depression Past Alcohol Use History: None Reported Additional Past Alcohol Use History / Comment(s): SMOKES < 1 PPD SINCE AGE 13 Past Drug Use History: None Reported - Past Family History Mother Family Medical History: No Reported History General Exam - General Exam Comments Initial Comments: PE: CONSTITUTIONAL: In acute distress, ill-appearing, appears underweight, tachypneic, currently on BiPAP SKIN: Cool, pale, dry, no jaundice, hives or petechiae EYES: Pupils are equally round, extraocular movements intact without nystagmus, clear conjunctiva, non-icteric sclera HENT: Normocephalic, atraumatic, moist mucus membranes, oropharynx clear without exudates NECK: , Full range of motion, normal appearance PULMONARY: Decreased air movement throughout, increased work of breathing, tachypnea, subcostal and intercostal retractions, no rales or rhonchi, no stridor CARDIOVASCULAR: Tachycardia regular rate, rhythm, normal S1 and S2. No appreciated murmurs, rubs or gallops. Strong radial pulses with intact distal perfusion. No lower extremity edema GASTROINTESTINAL: Soft, scaphoid, active bowel sounds throughout, non-tender, non-distended, no palpable masses, no rebound or guarding. No hepatosplenomegaly GENITOURINARY: MUSCULOSKELETAL: Extremities have no gross deformity, no edema, redness, or swelling. No calf swelling NEUROLOGIC:_a/o x 3, GCS 15, normal mentation and speech. Moves all extremities x 4 without motor or sensory deficit PSYCHIATRIC:_normal mood and affect, thought process is clear and linear Course Vital Signs 09/07/24 09/07/24 09/07/24 05:07 05:16 05:18 Temperature 97.8 F Pulse Rate 163 H 160 H Respiratory 34 H 34 H Rate Blood Pressure 117/87 134/113 O2 Sat by Pulse 96 96 Oximetry Fraction of 100 Inspired Oxygen (FIO2) 09/07/24 09/07/24 09/07/24 05:25 05:27 05:36 Temperature Pulse Rate 100 160 H 105 H Respiratory 36 H Rate Blood Pressure 112/85 O2 Sat by Pulse 97 Oximetry Fraction of Inspired Oxygen (FIO2) 09/07/24 09/07/24 09/07/24 06:15 06:38 07:00 Temperature Pulse Rate 115 H 98 102 H Respiratory 38 H 34 H 22 Rate Blood Pressure 115/92 115/38 99/64 O2 Sat by Pulse 94 L 98 100 Oximetry Fraction of Inspired Oxygen (FIO2) 09/07/24 09/07/24 09/07/24 07:05 07:17 07:50 Temperature Pulse Rate 102 H 104 H Respiratory 20 Rate Blood Pressure 95/81 O2 Sat by Pulse 100 Oximetry Fraction of 100 Inspired Oxygen (FIO2) 09/07/24 09/07/24 09/07/24 07:51 07:59 08:10 Temperature Pulse Rate 102 H 104 H Respiratory 30 H Rate Blood Pressure 119/95 O2 Sat by Pulse 100 Oximetry Fraction of 50 Inspired Oxygen (FIO2) 09/07/24 09/07/24 09/07/24 08:49 09:00 09:48 Temperature Pulse Rate 100 102 H 98 Respiratory 20 20 20 Rate Blood Pressure 118/88 122/90 107/88 O2 Sat by Pulse 100 100 96 Oximetry Fraction of Inspired Oxygen (FIO2) 09/07/24 09/07/24 10:10 10:32 Temperature 97.4 F L Pulse Rate 98 95 Respiratory 20 20 Rate Blood Pressure 109/88 108/87 O2 Sat by Pulse 99 100 Oximetry Fraction of 40 Inspired Oxygen (FIO2) - Reevaluation(s) Reevaluation #1: After nebulizer treatments and trial of BiPAP patient is tripoding and continues to have increased work of breathing. His symptoms has not improved, at this point discussed with patient and at bedside plan for intubation given worsening symptoms. Patient and agreeable to sign of care 09/07/24 05:55 EKG Findings - EKG Comments: EKG Findings:: Sinus rhythm, rate 90 bpm WV interval 146 ms QT/QTc 396/444 ms, normal axis, T wave inversion lateral leads, no acute ST depressions or elevations, no arrhythmia Procedures - Intubation Sedative: Etomidate Paralytic: Rocuronium Laryngoscope: Josee Size: 3 Assist Device Used: other (Glidescope) ET Tube Size: 8 ET Tube Uncuffed: No Tube Secured Depth (cm): 24 (teeth) Tube Secured Location: teeth Tube Placement Confirmation: visualized tube passing through cords, equal breath sounds bilaterally, no breath sounds over epigastrium, confirmation by capnometry Patient Tolerated Procedure: well Intubation Complications: difficult intubation (initially attempted via direct laryngoscopy however unable to pass tube using flexible stylet so transitioned to video assisted with rigid stylet, resulting in succesful intubation) Medical Decision Making - Medical Decision Making Was pt. sent in by a medical professional or institution (, PA, HOSPITALITY HOST, urgent care, hospital, or [facility]...) When possible be specific @ -[No] Did you speak to anyone other than the patient for history (EMS, parent, family, police, friend...)? What history was obtained from this source @ -Spoke with EMS personnel, reports that patient was in the low 80s on room air on their arrival, was tripoding, they auscultated track crackles in the patient's lung bases, received albuterol treatment and went to the ER Did you review nursing and triage notes (agree or disagree)? Why? @ -[I reviewed nursing and triage notes] Were old charts reviewed (outside hosp., previous admission, EMS record, old EKG, old radiological studies, urgent care reports/EKG's, [facility] records)? Report findings @ -[Medical records reviewed] Differential Diagnosis (chest pain, altered mental status, abdominal pain women, abdominal pain men, vaginal bleeding, weakness, fever, dyspnea, syncope, headache, dizziness, GI bleed, back pain, seizure, CVA, palpatations, mental health, musculoskeletal)? @Differential Dyspnea: Coronary syndrome, arrhythmia, tamponade, asthma, COPD, pulmonary embolism, pneumonia, pneumothorax, pulmonary effusion, anaphylaxis, diabetic ketoacidosis, flailed chest, pulmonary contusion, diaphragmatic rupture, anemia, neuromuscular, this is not meant to be an all-inclusive list. EKG interpreted by me (3pts min.). @ -[As above] X-rays interpreted by me (1pt min.). @ Large pleural effusion with consolidation, no pneumothorax, agree with radiologist interpretation Reviewed CXR obtained s/p intubation- trache now appears more midline, persistent LLL consolidation, ETT ~ 5-6 cm above rito, read by radiologist as 7 cm above rito, requested RT advance ETT [address] interpreted by me (1pt min.). @ I personally reviewed Chest CT- I see no evidence of PE, appears to have large lung consolidation and mass throughout left lower and left upper lobe of lung, agree with radiologist interpretation U/S interpreted by me (1pt. min.). @ -[None done] What testing was considered but not performed or refused? (CT, X-rays, U/S, labs)? Why? @ -[None] What meds were considered but not given or refused? Why? @ -[None] Did you discuss the management of the patient with other professionals (professionals i.e. , PA, HOSPITALITY HOST, lab, RT, psych nurse, social science research assistant, drawer hardware worker, teacher, access control officer, welfare case worker)? Give summary @ Discussed with critical care, Dr. Lu Was smoking cessation discussed for >3mins.? @ -[No] Was critical care preformed (if so, how long)? @ -Yes 45 minutes Were there social determinants of health that impacted care today? How? (Homelessness, low income, unemployed, alcoholism, drug addiction, transportation, low edu. Level, literacy, decrease access to med. care, [place] [facility], rehab)? @ -[No] Was there de-escalation of care discussed even if they declined (Discuss DNR or withdrawal of care, Hospice)? @ -[No] What co-morbidities impacted this encounter? (DM, HTN, Smoking, COPD, CAD, Cancer, CVA, ARF, Chemo, Hep., AIDS, mental health diagnosis, sleep apnea, morbid obesity)? @COPD Was patient admitted / discharged? Hospital course, mention meds given and route, prescriptions, significant lab abnormalities, going to OR and other pertinent info. @ -Admission to ICU- this is a 64-year-old gentleman past medical hx COPD, unknown other past medical history, history is limited by acuity of condition presenting today for progressively worsening shortness of breath x 24 hours. Patient arrived on CPAP and immediately transitioned to BiPAP. He is tachypneic, he is ill-appearing, appears underweight with a scaphoid abdomen. He has decreased breath sounds throughout all lung bellamy without any focal breath sounds. Of note though documented heart rate on arrival was 168, this appeared to be artifact on telemetry, and upon auscultation patient did appear to be tachycardic however heart rate was in low 100s, and when patient was sitting still decreased down to ~100 on telemetry immediately. Plan for broad workup including D-dimer, EKG, troponin, comprehensive labs, patient be given [id number] nebulizer treatments, steroids, IV fluids, antibiotics, blood culture and lactic will be obtained. Chest x-ray appears to show a left pleural effusion, left lower lobe consolidation, of note chest x-ray notes possible tracheal deviation however patient does not appear to have this on exam, no distended neck pains, he has no pneumothorax, will assess further with recommended CT chest. On reassessment patient continued to be in distress despite nebulizer treatments and BiPAP. No improvement in lung sounds. He is tripoding and leaning forward. He denies improvement in symptoms. At this point I am concerned that he will continue to worsen and not being able to maintain his work of breathing. Discussed with patient and plan for intubation to which they are agreeable. Of note the patient's at bedside she states that patient has been having night sweats, rapid weight loss. Patient reportedly has a CT ordered outpatient however this not been done. I am very concerned the chest x- ray findings, patient's cachectic appearance, night sweats may indicate underlying malignancy. Lab significant for mild leukocytosis white blood count 12.1, lactic acidosis white blood lactic of 7, troponin is elevated 1.560, given height of troponin elevation, heparin infusion ordered and will be treated as NSTEMI at this p [place]int, [place] [address], T. bili within normal meds however AST/ALT extremely elevated 2374/1390 with elevated alk phos, patient has no jaundice or right upper quadrant tenderness to palpation, D-dimer 15.36. RUQ US ordered, CT chest pending. Post intubation s/p 30cc/kg LR bolus pt hypotensive, levophed ordered. Case discussed with Dr. Lu, ICU, and [facility], , pt will be admitted to ICU. Undiagnosed new problem with uncertain prognosis? @ -[No] Drug Therapy requiring intensive monitoring for toxicity (Heparin, Nitro, Insulin, Cardizem)? yes, heparin, levophed, propofol, fentanyl Were any procedures done? @ -[No] Diagnosis/symptom? @ Acute Hypoxic respiratory failure, septic shock 2/2 pneumonia, mediastinal mass Acute, or Chronic, or Acute on Chronic? @ acute Uncomplicated (without systemic symptoms) or Complicated (systemic symptoms)? complicated Side effects of treatment? @ -[No] Exacerbation, Progression, or Severe Exacerbation? @ -[No] Poses a threat to life or bodily function? How? (Chest pain, [place], [place], pneumonia, PE, COPD, DKA, ARF, appy, cholecystitis, CVA, Diverticulitis, Homicidal, Suicidal, threat to staff... and all critical care pts) @ yes, if left untreated septic shock and rsepiratory failure would lead to cardiac arrest and - Lab Data Result diagrams: 09/08/24 03:57 09/08/24 03:57 Lab Results 09/07/24 09/07/24 09/07/24 Range/Units 05:10 05:10 05:10 WBC 12.1 H (3.8-10.6) k/uL RBC 4.17 L (4.30-5.90) m/uL Hgb 13.1 (13.0-17.5) gm/dL Hct 39.7 (39.0-53.0) % MCV 95.2 (80.0-100.0) fL MCH 31.5 (25.0-35.0) pg MCHC 33.0 (31.0-37.0) g/dL RDW 13.7 (11.5-15.5) % Plt Count 415 (150-450) k/uL MPV 7.3 Neutrophils % 85 % Lymphocytes % 6 % Monocytes % 7 % Eosinophils % 0 % Basophils % 0 % Neutrophils # 10.3 H (1.3-7.7) k/uL Lymphocytes # 0.7 L (1.0-4.8) k/uL Monocytes # 0.9 (0-1.0) k/uL Eosinophils # 0.0 (0-0.7) k/uL Basophils # 0.0 (0-0.2) k/uL ESR (0-20) mm/Hr PT 13.5 H (10.0-12.5) sec INR 1.3 H (<1.2) APTT 23.4 (22.0-30.0) sec D-Dimer 15.36 H (<0.60) mg/L FEU Sodium 138 (137-145) mmol/L Potassium 5.0 (3.5-5.1) mmol/L Chloride 101 (98-107) mmol/L Carbon Dioxide 23 (22-30) mmol/L Anion Gap 14 mmol/L BUN 37 H (9-20) mg/dL Creatinine 0.88 (0.66-1.25) mg/dL Est GFR (CKD-EPI)AfAm >90 (>60 ml/min/1.73 sqM) Est GFR (CKD-EPI)NonAf 90 (>60 ml/min/1.73 sqM) Glucose 99 (74-99) mg/dL Lactic Ac Sepsis Rflx Plasma Lactic Acid Tonio (0.7-2.0) mmol/L Calcium 9.5 (8.4-10.2) mg/dL Magnesium 2.5 H (1.6-2.3) mg/dL Total Bilirubin 1.1 (0.2-1.3) mg/dL AST 2374 H (17-59) U/L ALT 1390 H (4-49) U/L Alkaline Phosphatase 127 H (38-126) U/L Troponin I (0.000-0.034) ng/mL NT-Pro-B Natriuret Pep 75112 pg/mL Total Protein 6.1 L (6.3-8.2) g/dL Albumin 3.3 L (3.5-5.0) g/dL Procalcitonin (0.02-0.50) ng/mL 09/07/24 09/07/24 09/07/24 Range/Units 05:10 05:10 05:10 WBC (3.8-10.6) k/uL RBC (4.30-5.90) m/uL Hgb (13.0-17.5) gm/dL Hct (39.0-53.0) % MCV (80.0-100.0) fL MCH (25.0-35.0) pg MCHC (31.0-37.0) g/dL RDW (11.5-15.5) % Plt Count (150-450) k/uL MPV Neutrophils % % Lymphocytes % % Monocytes % % Eosinophils % % Basophils % % Neutrophils # (1.3-7.7) k/uL Lymphocytes # (1.0-4.8) k/uL Monocytes # (0-1.0) k/uL Eosinophils # (0-0.7) k/uL Basophils # (0-0.2) k/uL ESR (0-20) mm/Hr PT (10.0-12.5) sec INR (<1.2) APTT (22.0-30.0) sec D-Dimer (<0.60) mg/L FEU Sodium (137-145) mmol/L Potassium (3.5-5.1) mmol/L Chloride (98-107) mmol/L Carbon Dioxide (22-30) mmol/L Anion Gap mmol/L BUN (9-20) mg/dL Creatinine (0.66-1.25) mg/dL Est GFR (CKD-EPI)AfAm (>60 ml/min/1.73 sqM) Est GFR (CKD-EPI)NonAf (>60 ml/min/1.73 sqM) Glucose (74-99) mg/dL Lactic Ac Sepsis Rflx Plasma Lactic Acid Tonio 7.0 H* (0.7-2.0) mmol/L Calcium (8.4-10.2) mg/dL Magnesium (1.6-2.3) mg/dL Total Bilirubin (0.2-1.3) mg/dL AST (17-59) U/L ALT (4-49) U/L Alkaline Phosphatase (38-126) U/L Troponin I 1.560 H* (0.000-0.034) ng/mL NT-Pro-B Natriuret Pep pg/mL Total Protein (6.3-8.2) g/dL Albumin (3.5-5.0) g/dL Procalcitonin 3.92 H (0.02-0.50) ng/mL 09/07/24 09/07/24 Range/Units 05:10 05:57 WBC (3.8-10.6) k/uL RBC (4.30-5.90) m/uL Hgb (13.0-17.5) gm/dL Hct (39.0-53.0) % MCV (80.0-100.0) fL MCH (25.0-35.0) pg MCHC (31.0-37.0) g/dL RDW (11.5-15.5) % Plt Count (150-450) k/uL MPV Neutrophils % % Lymphocytes % % Monocytes % % Eosinophils % % Basophils % % Neutrophils # (1.3-7.7) k/uL Lymphocytes # (1.0-4.8) k/uL Monocytes # (0-1.0) k/uL Eosinophils # (0-0.7) k/uL Basophils # (0-0.2) k/uL ESR 55 H (0-20) mm/Hr PT (10.0-12.5) sec INR (<1.2) APTT (22.0-30.0) sec D-Dimer (<0.60) mg/L FEU Sodium (137-145) mmol/L Potassium (3.5-5.1) mmol/L Chloride (98-107) mmol/L Carbon Dioxide (22-30) mmol/L Anion Gap mmol/L BUN (9-20) mg/dL Creatinine (0.66-1.25) mg/dL Est GFR (CKD-EPI)AfAm (>60 ml/min/1.73 sqM) Est GFR (CKD-EPI)NonAf (>60 ml/min/1.73 sqM) Glucose (74-99) mg/dL Lactic Ac Sepsis Rflx Y Plasma Lactic Acid Tonio (0.7-2.0) mmol/L Calcium (8.4-10.2) mg/dL Magnesium (1.6-2.3) mg/dL Total Bilirubin (0.2-1.3) mg/dL AST (17-59) U/L ALT (4-49) U/L Alkaline Phosphatase (38-126) U/L Troponin I (0.000-0.034) ng/mL NT-Pro-B Natriuret Pep pg/mL Total Protein (6.3-8.2) g/dL Albumin (3.5-5.0) g/dL Procalcitonin (0.02-0.50) ng/mL Disposition Clinical Impression: Acute hypoxic respiratory failure, Mediastinal mass, Septic shock Disposition: ADMITTED IP TO THIS HOSP Condition: Critical
[2024-09-07] MEDS: ALBUTEROL NEBULIZED 2.5 MG/3 ML INHALATION SCH (05:13)
[2024-09-07] MEDS: IPRATROPIUM 0.5 MG/2.5 ML NEBU INHALATION STA ×2 (05:14→05:26)
[2024-09-07] MEDS: methylPREDNISolone SOD SUCCI 125 MG/2 ML VIAL IV STA (05:14)
[2024-09-07] MEDS: SODIUM CHLORIDE 0.9% 1,000 ML IV ONE ×2 (05:15→12:35)
--- NOTE | 2024-09-07 05:34 | XR ---
EXAM: XR Chest, 1 View CLINICAL HISTORY: ITS.REASON XR Reason: difficulty breathing, decreased breath sounds thro TECHNIQUE: Frontal view of the chest. COMPARISON: X-ray dated 12/13/2017. FINDINGS: Lungs: Question of a rounded opacity seen within the right lower lung. Opacification of the left mid to lower lung. Hyperinflation of the right lung. Pleural space: Left sided pleural effusion. No pneumothorax. Heart: The cardiac silhouette is obscured. Mediastinum: Nonspecific leftward deviation of the mid thoracic trachea. Bones/joints: Degenerative changes are seen in the spine and shoulders. Partial characterization of the cervical spine fusion hardware. No acute fracture. IMPRESSION: 1. Left-sided pleural effusion and pneumonia. 2. Opacity seen within the right lung base, unclear if this represents consolidative opacity versus pulmonary nodule. Consider chest CT for further evaluation. 3. Leftward deviation of the mid thoracic trachea, this can be further evaluated as above.
[2024-09-07 05:41] LABS: African American GFR (CKD) >90 (>60 ml/min/1.73 sqM); Albumin 3.3 g/dL (3.5-5.0); Alkaline Phosphatase 127 U/L (38-126); Anion Gap 14 mmol/L; Blood Urea Nitrogen 37 mg/dL (9-20); Calcium 9.5 mg/dL (8.4-10.2); Carbon Dioxide 23 mmol/L (22-30); Chloride 101 mmol/L (98-107); Glucose 99 mg/dL (74-99); Magnesium 2.5 mg/dL (1.6-2.3); Non-African American GFR(CKD) 90 (>60 ml/min/1.73 sqM); Sodium 138 mmol/L (137-145); Total Bilirubin 1.1 mg/dL (0.2-1.3); Total Protein 6.1 g/dL (6.3-8.2)
[2024-09-07 05:46] LABS: Basophils % (A) 0 %; Eosinophils % (A) 0 %; HCT 39.7 % (39.0-53.0); HGB 13.1 gm/dL (13.0-17.5); Lymphocytes # (A) 0.7 k/uL (1.0-4.8); Lymphocytes % (A) 6 %; MCH 31.5 pg (25.0-35.0); MCV 95.2 fL (80.0-100.0); Mean Platelet Volume 7.3; Monocytes # (A) 0.9 k/uL (0-1.0); Monocytes % (A) 7 %; Neutrophils # (A) 10.3 k/uL (1.3-7.7); Neutrophils % (A) 85 %; Platelet Count 415 k/uL (150-450); RBC 4.17 m/uL (4.30-5.90); RDW 13.7 % (11.5-15.5); WBC 12.1 k/uL (3.8-10.6)
[2024-09-07 05:47] LABS: INR 1.3 (<1.2); Partial Thromboplastin Time 23.4 sec (22.0-30.0); Prothrombin Time 13.5 sec (10.0-12.5)
[2024-09-07 05:48] LABS: NT-Pro-B-Type Natriuretic Pept 29900 pg/mL
[2024-09-07] MEDS: AZITHROMYCIN 500 MG in SODIUM CHLORIDE 0.9% 250 ML IVPB STA (05:54)
[2024-09-07] MEDS: cefTRIAXone IN SWFI 1,000 MG/10 ML SYRINGE IVP STA (05:54)
[2024-09-07 05:56] LABS: ALT 1390 U/L (4-49)
[2024-09-07] MEDS ORDERED: IPRATROPIUM-ALBUTEROL 3 ML NEB INHALATION PRN (05:56)
[2024-09-07] MEDS ORDERED: fentaNYL (PF) 50 MCG/ML 2 ML AMP IVP PRN (05:56)
[2024-09-07] MEDS: ROCURONIUM 10 MG/ML (5 ML VIAL) IV STA (06:31)
[2024-09-07] MEDS: ETOMIDATE 2 MG/ML 10 ML VIAL IVP STA (06:31)
[2024-09-07] MEDS ORDERED: NALOXONE 0.4 MG/ML 1 ML VIAL IV PRN (06:46)
[2024-09-07] MEDS ORDERED: Potassium Replacement Protocol 1 EACH MISC MISCELLANE PRN (06:48)
[2024-09-07] MEDS ORDERED: MORPHINE SULFATE 2 MG/ML SYRINGE IV PRN (06:48)
[2024-09-07] MEDS ORDERED: LORazepam 2 MG/ML INJ IV PRN (06:48)
[2024-09-07] MEDS ORDERED: Phosphorus Replacement Protoco 1 EACH MISC MISCELLANE PRN (06:48)
[2024-09-07] MEDS ORDERED: ACETAMINOPHEN SUPPOSITORY 650 MG SUPP RECTAL PRN (06:48)
[2024-09-07] MEDS ORDERED: Magnesium Replacement Protocol 1 EACH MISC MISCELLANE PRN (06:48)
[2024-09-07] MEDS ORDERED: NOREPINEPHRINE 4 MG in SODIUM CHLORIDE 0.9% 250 ML IV SCH (06:50)
[2024-09-07] MEDS: NOREPINEPHRINE 4 MG in SODIUM CHLORIDE 0.9% 250 ML IV SCH (06:56)
[2024-09-07] MEDS ORDERED: LACTATED RINGERS 1,000 ML IV SCH (07:00)
[2024-09-07 07:02] LABS: ABG Base Excess -9.7 mmol/L; ABG HCO3 18 mmol/L (21-25); ABG PCO2 43 mmHg (35-45); ABG PH 7.22 (7.35-7.45); ABG TCO2 19 mmol/L (19-24); Allen Test Performed? Yes
[2024-09-07 07:04] LABS: ABG PO2 >420 mmHg (83-108)
[2024-09-07 07:05] LABS: AST 2374 U/L (17-59)
[2024-09-07] MEDS: fentaNYL (PF). 1,000 MCG in SODIUM CHLORIDE 0.9% 80 ML IV SCH (07:06)
[2024-09-07] MEDS: HEPARIN SODIUM 1,000 UN/ML (10ML VL) IV ONE (07:13)
--- NOTE | 2024-09-07 07:42 | XR ---
EXAMINATION TYPE: XR chest 1V portable DATE OF EXAM: 09/07/2024 7:30 AM COMPARISON: 09/07/2024 CLINICAL INDICATION: Male, 64 years old with history of Tube placement, TECHNIQUE: XR chest 1V portable view(s) obtained. FINDINGS: The heart size is normal. The pulmonary vasculature is normal. There is consolidation lower lung field. There is silhouetting the left heart border. There is poor v isualization of the left diaphragm. There shift of the mediastinum to the left. Endotracheal tube tip is 7 cm above the rito. IMPRESSION: 1. Atelectasis in left lower lobe infiltrate, similar to prior study. 2. Endotracheal tube tip 7 cm above the rito [facility], , 09/07/2024 7:39 AM
[2024-09-07] MEDS: IPRATROPIUM-ALBUTEROL 3 ML NEB INHALATION SCH (07:47)
[2024-09-07] MEDS: LACTATED RINGERS 1,000 ML IV ONE (07:56)
[2024-09-07] MEDS: LACTATED RINGERS 1,000 ML IV SCH (07:57)
[2024-09-07] MEDS: SODIUM BICARB 8.4% 50 ML SYR (1 MEQ/ML) IV STA ×2 (08:53→11:05)
--- NOTE | 2024-09-07 09:04 | CT ---
EXAMINATION TYPE: CT chest angio for PE DATE OF EXAM: 09/07/2024 9:01 AM COMPARISON: None. CLINICAL INDICATION: Male, 64 years old with history of STANTON, R. pleural effusion, poss nodule right lung, Elevated d dimer, STANTON, RT pleural effusion, possible nodule RT lung, hx COPD., TECHNIQUE: CT of the chest is performed on a spiral scan at 2 mm thick sections. Study is performed with intravenous contrast timed for evaluation for pulmonary embolism. This will limit additional po rtions of the evaluation. 10mm MIP images reconstructed by the technologist are reviewed on the comp uter in the coronal and sagittal planes. Contrast used:100 ml mL of Isovue 370 with IV Contrast, (none if empty) Oral contrast used: (none if empty) CT DLP: 367.7 mGycm, Automated exposure control for dose reduction was used. FINDINGS: No persistent filling defects are evident to suggest an acute pulmonary embolism. No mediastinal or hilar adenopathy enlarged by CT criteria is evident. The ascending aorta diameter at the level of the main pulmonary artery is cm. The main pulmonary art filippo diameter at the bifurcation is cm. Emphysematous changes are through the right lung. Some groundglass opacity may reflect some pulmonary edema. Left lung is consolidated. Moderate left pleural effusion is present. There is a 6.5 x 7.5 cm mass in the medial right lung base. Large density is through the mediastinum extending into the left perihilar region. This appears to be occluding the left bronchus. Patient is intubated with endotracheal tube tip above the rito. Mass also appears to be encasing somewhat narr owing the left main pulmonary artery. Mild coronary artery calcifications present. Limited CT sections were through the upper abdomen. Upper abdomen appears unremarkable. IMPRESSION: 1. No acute pulmonary emboli identified. 2. Large mass within the mediastinum encasing and obstructing the left main bronchus. 3. Large Right lower medial lobe mass. [facility], , 09/07/2024 9:02 AM
[2024-09-07 09:05] LABS: Influenza A Not Detected (Not Detectd); Influenza B Not Detected (Not Detectd); RSV Not Detected (Not Detectd)
[2024-09-07] MEDS: PANTOPRAZOLE 40 MG/10 ML VIAL IV SCH (09:21)
[2024-09-07 09:27] LABS: ABG Base Excess -4.7 mmol/L; ABG HCO3 22 mmol/L (21-25); ABG Oxygen Saturation 99.4 % (94-97); ABG PCO2 49 mmHg (35-45); ABG PH 7.27 (7.35-7.45); ABG PO2 187 mmHg (83-108); ABG TCO2 24 mmol/L (19-24); Allen Test Performed? Yes
[2024-09-07] MEDS: HEPARIN SOD,PORK IN 0.45% NACL 25,000 UNIT in 0.45% NACL 1 250ML.BAG IV SCH (09:30)
[2024-09-07 10:31] LABS: Basophils % (A) 0 %; Eosinophils % (A) 0 %; HGB 11.6 gm/dL (13.0-17.5); Hypochromasia Marked; Lymphocytes # (A) 0.4 k/uL (1.0-4.8); Lymphocytes % (A) 4 %; MCH 30.7 pg (25.0-35.0); MCHC 30.6 g/dL (31.0-37.0); Macrocytosis Slight; Mean Platelet Volume 7.5; Monocytes # (A) 0.5 k/uL (0-1.0); Monocytes % (A) 6 %; Neutrophils # (A) 8.5 k/uL (1.3-7.7); Neutrophils % (A) 89 %; Platelet Count 289 k/uL (150-450); RBC 3.79 m/uL (4.30-5.90); RDW 13.7 % (11.5-15.5); WBC 9.5 k/uL (3.8-10.6)
[2024-09-07 10:36] LABS: MCV 100.4 fL (80.0-100.0)
[2024-09-07 10:45] LABS: Glucose,Whole Blood 109 mg/dL (70-110)
--- NOTE | 2024-09-07 10:49 | US ---
EXAMINATION TYPE: US abdomen limited DATE OF EXAM: 09/07/2024 COMPARISON: NONE CLINICAL INDICATION: Male, 64 years old with history of elevated LFTs, normal T bili; TECHNIQUE: Grayscale and color Doppler imaging of the right upper quadrant was performed. FINDINGS: EXAM MEASUREMENTS: Liver Length: 17.4 cm Gallbladder Wall: 0.1 cm CBD: 0.2 cm Right Kidney: 9.3 x 5.3 x 6.1 cm Pancreas: visualized portions wnl, limited by overlying midline bowel gas Liver: multiple hyperechoic lesions right lobe with largest measuring 1.5cm Gallbladder: multiple small echogenic foci, sludge Evidence for sonographic Mcclain's sign: no CBD: visualized portions wnl, limited by overlying bowel gas Right Kidney: visualized portions wnl, inferior pole limited by overlying bowel gas Fluid within RUQ Epigastric: 4.2 x 4.0 x 4.0cm mass seen - ? lung mass vs. other IMPRESSION: 1. Small echogenic foci within the enlarged liver may be small hemangiomas. Other etiologies are not excluded including metastasis. Additional workup with CT could be performed. 2. There is an 4 cm isoechoic density at the lung base of uncertain etiology. Additional workup with CT chest is recommended. [facility], , 09/07/2024 10:47 AM
[2024-09-07] MEDS: DEXTROSE 5% IN WATER 100 ML with AMIODARONE 150 MG IV ONE (11:59)
--- NOTE | 2024-09-07 12:23 | P.CRDCN ---
History of Present Illness Consult date: 09/07/24 History of present illness: History of Present Illness: The patient is a 64-year-old male who presented with significant dyspnea hypoxemia and hypotension, was intubated. Cardiology consultation was requested because of elevation of troponin. No prior history is available the patient chest x-ray showed total opacification and collapse of the left lung and evidence of tumor. He had an episode of atrial fibrillation after presenting to the ICU, he is back to sinus mechanism. He is hypotensive requiring norepinephrine. No other prior history is available to me and no family is available. Initial blood gases after intubation showed pH 7.22, his D-dimer was 15.3 and his troponin was 1.5. [place] [address] and abnormality and his AST and ALT. His plasma lactic acid was 7.0 on presentation. His EKG showed sinus mechanism with T wave inversion anteriorly. Medications: According to the record Protonix, Megace, Synthroid, Neurontin, Cymbalta, Trelegy, cyclobenzaprine Review of Systems: Could not be obtained, the patient is intubated and sedated Physical Examination: 64-year-old Male, Intubated appears older than stated age,Blood pressure 96/70, Heart rate 97, afebrile Head: Normocephalic. Eyes: Sclerae nonicteric. Neck: Good carotid upstroke, no bruit, no jugular venous distention. Lungs: Decreased air exchange on the left side Heart: Regular rate and rhythm, S1-S2, no S3, no rub. No murmur. Abdomen: Soft , positive bowel sounds no organomegaly. Extremities: No edema, intact distal pulses. Labs: WBC 12.1, hemoglobin 13.1, BUN 37, creatinine 0.88. AST 2374 ALT 1390. Troponin 1.56, NT proBNP 29,900. Total bilirubin 6.1. Chest CT angiogram revealed large mass in the mediastinum encasing and obstructing the left main bronchus with large right lower medial lobe mass EKG: Sinus mechanism with T wave inversion anteriorly, could represent ischemia Impression: 1. Respiratory failure with collapse of the left lung and findings highly suggestive of malignancy 2. Elevated troponin probably related to the hypoxemia and type II myocardial infarction, the possibility of primary ischemic event cannot be totally excluded 3. Paroxysmal atrial fibrillation most likely worsened by the respiratory status 4. Abnormal liver function test rule out metastasis 5. Hypertension 6. History of hypothyroidism Plan: 1. Obtain an echocardiogram with Doppler 2. Initiate IV amiodarone to maintain sinus mechanism and follow liver function test closely 3. Obtain thyroid function test 4. Prognosis poor 5. Thank you for this consult we will follow with you Past Medical History Past Medical History: Osteoarthritis (OA), Thyroid Disorder Additional Past Medical History / Comment(s): NECK AND BACK PAIN History of Any Multi-Drug Resistant Organisms: None Reported Past Surgical History: Appendectomy, Tonsillectomy Additional Past Surgical History / Comment(s): BACK INJECTIONS Past Anesthesia/Blood Transfusion Reactions: No Reported Reaction Past Psychological History: Depression Past Alcohol Use History: None Reported Additional Past Alcohol Use History / Comment(s): SMOKES < 1 PPD SINCE AGE 13 Past Drug Use History: None Reported - Past Family History Mother Family Medical History: No Reported History Medications and Allergies Home Medications Medication Instructions Recorded Confirmed Type Cyclobenzaprine [Flexeril] 10 mg PO DAILY PRN 12/12/17 09/07/24 History DULoxetine HCL [Cymbalta] 60 mg PO BID 12/12/17 09/07/24 History Gabapentin [Neurontin] 300 mg PO BID 12/12/17 09/07/24 History HYDROcodone/APAP 5-325MG [[place] 1 tab PO Q6HR PRN 12/12/17 09/07/24 History 5-325] Meloxicam [Mobic] 7.5 mg PO BID 12/12/17 09/07/24 History Fluticasone/Umeclidin/Vilanter 1 puff INHALATION RT-DAILY 01/03/24 09/07/24 History [Trelegy Ellipta 100-62.5-25] Levothyroxine Sodium [Synthroid] 88 mcg PO DAILY 01/03/24 09/07/24 History Megestrol [Megace] 400 mg PO DAILY 09/07/24 09/07/24 History Pantoprazole [Protonix] 40 mg PO DAILY 09/07/24 09/07/24 History Allergies Allergy/AdvReac Type Severity Reaction Status Date / Time No Known Allergies Allergy Verified 09/07/24 09:25 Physical Exam Vitals: Vital Signs Temp Pulse Resp BP Pulse Ox FiO2 09/07/24 11:20 40 09/07/24 11:00 95.5 F L 103 H 20 96/77 96 04/07/25 10:45 97 20 106/86 98 09/07/24 10:32 95 20 108/87 100 40 09/07/24 10:10 97.4 F L 98 20 109/88 99 09/07/24 09:48 98 20 107/88 96 09/07/24 09:00 102 H 20 122/90 100 09/07/24 08:49 100 20 118/88 100 09/07/24 08:10 104 H 30 H 119/95 100 09/07/24 07:59 102 H 09/07/24 07:51 50 09/07/24 07:50 104 H 09/07/24 07:17 102 H 20 95/81 100 09/07/24 07:05 100 09/07/24 07:00 102 H 22 99/64 100 09/07/24 06:38 98 34 H 115/38 98 09/07/24 06:15 115 H 38 H 115/92 94 L 09/07/24 05:57 100 09/07/24 05:36 105 H 09/07/24 05:27 160 H 09/07/24 05:25 100 36 H 112/85 97 09/07/24 05:18 100 09/07/24 05:16 160 H 34 H 134/113 96 09/07/24 05:07 97.8 F 163 H 34 H 117/87 96 Intake and Output 09/06/24 09/07/24 09/07/24 22:59 06:59 14:59 Intake Total 179.177 Output Total 160 Balance 19.177 Intake: IV 130 Lactated Ringers 1,000 ml 130 @ 130 mls/hr IV .[id number] [facility] Rx#:[id number] Intake, IV Titration 49.177 Amount Norepinephrine 4 mg In 22.100 Sodium Chloride 0.9% 250 ml @ 0.03 MCG/KG/MIN 5. 807 mls/hr IV .Q24H [facility] Rx#:[id number] propofoL 1,000 mg In 27.077 Empty Bag 1 bag @ 15 MCG/ KG/MIN 4.572 mls/hr IV . [id number] [facility] Rx#:[id number] Output: Urine 160 Other: Weight 50.802 kg Results 09/07/24 10:03 09/07/24 05:10 Cardiac Enzymes 09/07/24 09/07/24 09/07/24 Range/Units 05:10 05:10 10:03 AST 2374 H (17-59) U/L Troponin I 1.560 H* 1.420 H* (0.000-0.034) ng/mL Coagulation 09/07/24 Range/Units 05:10 PT 13.5 H (10.0-12.5) sec APTT 23.4 (22.0-30.0) sec CBC 09/07/24 09/07/24 Range/Units 05:10 10:03 WBC 12.1 H 9.5 (3.8-10.6) k/uL RBC 4.17 L 3.79 L (4.30-5.90) m/uL Hgb 13.1 11.6 L (13.0-17.5) gm/dL Hct 39.7 38.0 L (39.0-53.0) % Plt Count 415 289 (150-450) k/uL Comprehensive Metabolic Panel 09/07/24 Range/Units 05:10 Sodium 138 (137-145) mmol/L Potassium 5.0 (3.5-5.1) mmol/L Chloride 101 (98-107) mmol/L Carbon Dioxide 23 (22-30) mmol/L BUN 37 H (9-20) mg/dL Creatinine 0.88 (0.66-1.25) mg/dL Glucose 99 (74-99) mg/dL Calcium 9.5 (8.4-10.2) mg/dL AST 2374 H (17-59) U/L ALT 1390 H (4-49) U/L Alkaline Phosphatase 127 H (38-126) U/L Total Protein 6.1 L (6.3-8.2) g/dL Albumin 3.3 L (3.5-5.0) g/dL Current Medications Generic Name Dose Route Start Last Admin Trade Name Freq PRN Reason Stop Dose Admin Acetaminophen 650 mg 09/07/24 06:48 Acetaminophen Suppository 650 Mg Supp RECTAL Q4HR PRN Fever And/ Or Mild Pain Albuterol/Ipratropium 3 ml 09/07/24 08:00 09/07/24 11:20 Ipratropium-Albuterol 3 Ml Neb INHALATION Not Given RT-Q4H [facility] Albuterol/Ipratropium 3 ml 09/07/24 05:56 Ipratropium-Albuterol 3 Ml Neb INHALATION RT-Q2H PRN Shortness Of Breath Or Wheezing Fentanyl Citrate 50 mcg 09/07/24 05:56 Fentanyl (Pf) 50 Mcg/Ml 2 Ml Amp IVP Q2HR PRN Severe Pain (Scale 7 to 10) Heparin Sodium (Porcine) 0 unit 09/07/24 06:52 Heparin Sodium 1,000 Un/Ml (10ml Vl) IV PER PROTOCOL PRN Low PTT Protocol Fentanyl Citrate 1,000 mcg/ 100 mls @ 2.54 mls/hr 09/07/24 06:00 09/07/24 07:06 Sodium Chloride IV 0.5 mcg/kg/hr .Q24H [facility] 2.54 mls/hr Administration Protocol 0.5 MCG/KG/HR Propofol 1,000 mg/ IV Solution 100 mls @ 4.572 mls/hr 09/07/24 06:00 09/07/24 10:45 IV 45 mcg/kg/min .[id number] [facility] 13.717 mls/hr Titration Protocol 15 MCG/KG/MIN Norepinephrine Bitartrate 4 mg 254 mls @ 5.807 mls/hr 09/07/24 07:00 09/07/24 11:35 / Sodium Chloride IV 0.02 mcg/kg/min .Q24H [facility] 3.871 mls/hr Titration Protocol 0.03 MCG/KG/MIN Lactated Ringer's 1,000 mls @ 130 mls/hr 09/07/24 07:00 09/07/24 07:57 Lactated Ringers IV 130 mls/hr .[id number] [facility] Administration Heparin Sodium/Sodium Chloride 250 mls @ 6.096 mls/hr 09/07/24 07:15 09/07/24 09:30 25,000 unit/ Sodium Chloride IV 12 units/kg/hr .Q24H [facility] 6.096 mls/hr Administration Protocol 12 UNITS/KG/HR Piperacillin Sod/Tazobactam 100 mls @ 25 mls/hr 09/07/24 16:00 Sod 3.375 gm/ Sodium Chloride IVPB Q8HR [facility] Protocol Amiodarone HCl 360 mg/ 200 mls @ 33.333 mls/hr 09/07/24 11:27 Dextrose/Water IV 09/07/24 17:26 .Q6H ONE Protocol 1 MG/MIN Amiodarone HCl 450 mg/ 250 mls @ 16.667 mls/hr 09/07/24 17:30 Dextrose/Water IV 09/08/24 11:29 .Q15H [facility] Protocol 0.5 MG/MIN Lorazepam 1 mg 09/07/24 06:48 Lorazepam 2 Mg/Ml Inj IV Q6HR PRN Anxiety Miscellaneous Information 1 each 09/07/24 06:48 Potassium Replacement Protocol 1 Each Mis MISCELLANE DAILY PRN Per Protocol Miscellaneous Information 1 each 09/07/24 06:48 Magnesium Replacement Protocol 1 Each [facility] MISCELLANE DAILY PRN Per Protocol Protocol Miscellaneous Information 1 each 09/07/24 06:48 Phosphorus Replacement Protoco 1 Each [facility] MISCELLANE DAILY PRN Per Protocol Protocol Morphine Sulfate 2 mg 09/07/24 06:48 Morphine Sulfate 2 Mg/Ml Syringe IV Q2HR PRN Moderate Pain (Scale 4 to 6) Morphine Sulfate 4 mg 09/07/24 06:48 Morphine Sulfate 4 Mg/Ml Syringe IV Q3HR PRN Severe Pain (Scale 7 to 10) Naloxone HCl 0.2 mg 09/07/24 06:46 Naloxone 0.4 Mg/Ml 1 Ml Vial IV Q2M PRN Opioid Reversal Pantoprazole Sodium 40 mg 09/07/24 09:00 09/07/24 09:21 Pantoprazole 40 Mg/10 Ml Vial IV 40 mg DAILY [facility] Administration Intake and Output 09/06/24 09/07/24 09/07/24 22:59 06:59 14:59 Intake Total 179.177 Output Total 160 Balance 19.177 Intake: IV 130 Lactated Ringers 1,000 ml 130 @ 130 mls/hr IV .Q7H42M [facility] Rx#:[id number] Intake, IV Titration 49.177 Amount Norepinephrine 4 mg In 22.100 Sodium Chloride 0.9% 250 ml @ 0.03 MCG/KG/MIN 5. 807 mls/hr IV .Q24H [facility] Rx#:[id number] propofoL 1,000 mg In 27.077 Empty Bag 1 bag @ 15 MCG/ KG/MIN 4.572 mls/hr IV . [id number] [facility] Rx#:[id number] Output: Urine 160 Other: Weight 50.802 kg 09/07/24 10:03 09/07/24 05:10
[2024-09-07] MEDS: AMIODARONE 360 MG in DEXTROSE 5% IN WATER 200 ML IV ONE (12:24)
--- NOTE | 2024-09-07 12:50 | P.HPIM ---
History of Present Illness H&P Date: 09/07/24 History of present illness; patient is a 64-year-old gentleman with past medical history significant for COPD who presented to the ER because of shortness of breath. Most of the history is limited and is obtained from the EMR. According to that patient has been having shortness of breath for the last day. Shortness of breath is present at rest as on exertion. Patient has a hard time breathing. Denied any chest pain. did mention the patient has been losing weight and was having night sweats. Because of shortness of breath, EMS was called and patient was placed on CPAP, patient continued to be tachypneic. In the ER, patient was worked up Initial lab work done in the ER showed WBC 12.9, hemoglobin 13.1, INR 1.3, D- dimer 15.36, sodium 138, potassium 5, BUN 37, creatinine 0.88, lactate 7 magnesium 2.5, AST 2374, ALT 1390, troponin 1.560 proBNP 29,900 Influenza A not detected Influenza B not detected RSV not detected COVID-19 not detected EKG done in the ER showed heart rate of 90, no ST segment elevation or depression seen, no T-wave inversions seen. Chest x-ray done in the ER showed left-sided pleural effusion and pneumonia, opacity in the right lung base could be consolidative opacity versus pulm nodule. Leftward deviation of the thoracic aorta CT chest PE protocol done showed no evidence of any PE, no mediastinal or hilar lymph adenopathy. Large mass within the mediastinum encasing and obstructing left main bronchus, large right lower medial lobe mass. While in the ER, patient continued to be tachypnea, patient was transition to BiPAP initially but patient continued to be tachypneic. Decision was made to pursue mechanical ventilation, patient was intubated and transferred to ICU REVIEW OF SYSTEMS: Review of system cannot be obtained as patient is currently intubated PHYSICAL EXAMINATION: GENERAL: The patient is intubated HEENT: Pupils are round and equally reacting to light. EOMI. No scleral icterus. No conjunctival pallor. Normocephalic, atraumatic. No pharyngeal erythema. No thyromegaly. CARDIOVASCULAR: S1 and S2 present. No murmurs, rubs, or gallops. PULMONARY: Diminished breath sounds at bases bilaterally, crackles audible ABDOMEN: Soft, nontender, nondistended, normoactive bowel sounds. No palpable organomegaly. MUSCULOSKELETAL: No joint swelling or deformity. EXTREMITIES: No cyanosis, clubbing, or pedal edema. NEUROLOGICAL: Gross neurological examination did not reveal any focal deficits. SKIN: No rashes. Assessment and plan Acute hypoxic respiratory failure Acute COPD exacerbation NSTEMI Mediastinal mass obstructing left main bronchus Lung mass Lactic acidosis Acute transaminitis Monitor vital signs Monitor CBC Monitor CMP Continue telemetry monitoring Ordered serial troponin Ordered blood cultures Ordered sputum cultures Ordered 2D echo Ordered CRP, ESR, Pro-Caleb Ordered ultrasound abdomen Continue vent management Continue IV Zosyn Start pharmacy dose heparin Avoid hepatotoxic agents Order hepatitis panel Consult pulmonology Consult cardiology Consult GI Labs and medication were reviewed.. Continue same treatment. Continue with symptomatic treatment. Resume home medication. Monitor labs and vitals. DVT and GI prophylaxis. Further recommendations as per clinical course of the patient Dictation was produced using [employer] dictation software. please excuse any grammatical, word or spelling errors. Past Medical History Past Medical History: Osteoarthritis (OA), Thyroid Disorder Additional Past Medical History / Comment(s): NECK AND BACK PAIN History of Any Multi-Drug Resistant Organisms: None Reported Past Surgical History: Appendectomy, Tonsillectomy Additional Past Surgical History / Comment(s): BACK INJECTIONS Past Anesthesia/Blood Transfusion Reactions: No Reported Reaction Past Psychological History: Depression Past Alcohol Use History: None Reported Additional Past Alcohol Use History / Comment(s): SMOKES < 1 PPD SINCE AGE 13 Past Drug Use History: None Reported - Past Family History Mother Family Medical History: No Reported History Medications and Allergies Home Medications Medication Instructions Recorded Confirmed Type Cyclobenzaprine [Flexeril] 10 mg PO DAILY PRN 12/12/17 09/07/24 History DULoxetine HCL [Cymbalta] 60 mg PO BID 12/12/17 09/07/24 History Gabapentin [Neurontin] 300 mg PO BID 12/12/17 09/07/24 History HYDROcodone/APAP 5-325MG [[place] 1 tab PO Q6HR PRN 12/12/17 09/07/24 History 5-325] Meloxicam [Mobic] 7.5 mg PO BID 12/12/17 09/07/24 History Fluticasone/Umeclidin/Vilanter 1 puff INHALATION RT-DAILY 01/03/24 09/07/24 History [[place] Ellipta 100-62.5-25] Levothyroxine Sodium [Synthroid] 88 mcg PO DAILY 01/03/24 09/07/24 History Megestrol [Megace] 400 mg PO DAILY 09/07/24 09/07/24 History Pantoprazole [Protonix] 40 mg PO DAILY 09/07/24 09/07/24 History Allergies Allergy/AdvReac Type Severity Reaction Status Date / Time No Known Allergies Allergy Verified 09/07/24 09:25 Physical Exam Vitals: Vital Signs Temp Pulse Resp BP Pulse Ox FiO2 09/07/24 09:00 102 H 20 122/90 100 09/07/24 08:49 100 20 118/88 100 09/07/24 08:10 104 H 30 H 119/95 100 09/07/24 07:59 102 H 09/07/24 07:51 50 09/07/24 07:50 104 H 09/07/24 07:17 102 H 20 95/81 100 09/07/24 07:05 100 09/07/24 07:00 102 H 22 99/64 100 09/07/24 06:38 98 34 H 115/38 98 09/07/24 06:15 115 H 38 H 115/92 94 L 09/07/24 05:57 100 09/07/24 05:36 105 H 09/07/24 05:27 160 H 09/07/24 05:25 100 36 H 112/85 97 09/07/24 05:18 100 09/07/24 05:16 160 H 34 H 134/113 96 09/07/24 05:07 97.8 F 163 H 34 H 117/87 96 Intake and Output 09/06/24 09/07/24 09/07/24 22:59 06:59 14:59 Intake Total 11.532 Balance 11.532 Intake: Intake, IV Titration 11.532 Amount propofoL 1,000 mg In 11.532 Empty Bag 1 bag @ 15 MCG/ KG/MIN 4.572 mls/hr IV . [id number] [facility] Rx#:[id number] Other: Weight 50.802 kg Results CBC & Chem 7: 09/07/24 10:03 09/07/24 05:10 Labs: Abnormal Lab Results - Last 24 Hours (Table) 09/07/24 09/07/24 09/07/24 Range/Units 05:10 05:10 05:10 WBC 12.1 H (3.8-10.6) k/uL RBC 4.17 L (4.30-5.90) m/uL Neutrophils # 10.3 H (1.3-7.7) k/uL Lymphocytes # 0.7 L (1.0-4.8) k/uL PT 13.5 H (10.0-12.5) sec INR 1.3 H (<1.2) D-Dimer 15.36 H (<0.60) mg/L FEU ABG pH (7.35-7.45) ABG pO2 (83-108) mmHg ABG HCO3 (21-25) mmol/L ABG O2 Saturation (94-97) % Hemoglobin (13.0-17.5) gm/dL BUN 37 H (9-20) mg/dL Plasma Lactic Acid Tonio (0.7-2.0) mmol/L Magnesium 2.5 H (1.6-2.3) mg/dL AST 2374 H (17-59) U/L ALT 1390 H (4-49) U/L Alkaline Phosphatase 127 H (38-126) U/L Troponin I (0.000-0.034) ng/mL Total Protein 6.1 L (6.3-8.2) g/dL Albumin 3.3 L (3.5-5.0) g/dL 09/07/24 09/07/24 09/07/24 Range/Units 05:10 05:10 06:59 WBC (3.8-10.6) k/uL RBC (4.30-5.90) m/uL Neutrophils # (1.3-7.7) k/uL Lymphocytes # (1.0-4.8) k/uL PT (10.0-12.5) sec INR (<1.2) D-Dimer (<0.60) mg/L FEU ABG pH 7.22 L (7.35-7.45) ABG pO2 >420 H (83-108) mmHg ABG HCO3 18 L (21-25) mmol/L ABG O2 Saturation 100.0 H (94-97) % Hemoglobin 9.9 L (13.0-17.5) gm/dL BUN (9-20) mg/dL Plasma Lactic Acid Tonio 7.0 H* (0.7-2.0) mmol/L Magnesium (1.6-2.3) mg/dL AST (17-59) U/L ALT (4-49) U/L Alkaline Phosphatase (38-126) U/L Troponin I 1.560 H* (0.000-0.034) ng/mL Total Protein (6.3-8.2) g/dL Albumin (3.5-5.0) g/dL 09/07/24 Range/Units 08:13 WBC (3.8-10.6) k/uL RBC (4.30-5.90) m/uL Neutrophils # (1.3-7.7) k/uL Lymphocytes # (1.0-4.8) k/uL PT (10.0-12.5) sec INR (<1.2) D-Dimer (<0.60) mg/L FEU ABG pH (7.35-7.45) ABG pO2 (83-108) mmHg ABG HCO3 (21-25) mmol/L ABG O2 Saturation (94-97) % Hemoglobin (13.0-17.5) gm/dL BUN (9-20) mg/dL Plasma Lactic Acid [place] 7.0 H* (0.7-2.0) mmol/L Magnesium (1.6-2.3) mg/dL AST (17-59) U/L ALT (4-49) U/L Alkaline Phosphatase (38-126) U/L Troponin I (0.000-0.034) ng/mL Total Protein (6.3-8.2) g/dL Albumin (3.5-5.0) g/dL
[2024-09-07 13:28] LABS: ABG Base Excess -2.5 mmol/L; ABG HCO3 24 mmol/L (21-25); ABG Oxygen Saturation 98.5 % (94-97); ABG PCO2 48 mmHg (35-45); ABG PH 7.31 (7.35-7.45); ABG PO2 122 mmHg (83-108); ABG TCO2 25 mmol/L (19-24)
--- NOTE | 2024-09-07 13:28 | P.CONS ---
History of Present Illness - Reason for Consult Consult date: 09/07/24 Acute transaminitis Requesting physician: Dennis Up - Chief Complaint Shortness of breath - History of Present Illness This is a 64-year-old male being seen in the ICU who is currently sedated and intubated. History is obtained from chart. There is no family at the bedside currently. Apparently patient had had significant shortness of breath and came into the emergency department for further evaluation. He was noted to be hypoxic and hypotensive and subsequently was intubated. Patient is requiring norepinephrine for his hypotension. Past medical history reported includes osteoarthritis and thyroid disorder as well as chronic tobacco use since age 13. Patient was noted to have acute transaminitis for which gastroenterology was consulted. Patient's later present at the bedside and states patient has no known history of liver disease, no history of alcohol abuse. Today's labs WBC 9.5 hemoglobin 11.6 platelet count 289,000 INR 1.3 D-dimer 15.3 sodium 138 potassium 5.0 BUN 37 creatinine 0.8 lactic acid 6.0 magnesium 2.5 total bilirubin 1.1 AST 2374 ALT 1390 alkaline phosphatase 127 troponin [address] angiogram chest which reported no acute pulmonary emboli. A large mass within the mediastinum encasing and obstructing the left main bro nchus. Large right lower medial lobe mass Nominal ultrasound reports small echogenic foci within the enlarged liver may be small hemangiomas. Other etiologies are not excluding including metastasis. Additional workup with CT could be performed. There is a 4 cm isoechoic density at the lung base of uncertain etiology. Additional workup with CT chest is recommended. Review of Systems ROS unobtainable: due to endotracheal tube Past Medical History Past Medical History: Osteoarthritis (OA), Thyroid Disorder Additional Past Medical History / Comment(s): NECK AND BACK PAIN History of Any Multi-Drug Resistant Organisms: None Reported Past Surgical History: Appendectomy, Tonsillectomy Additional Past Surgical History / Comment(s): BACK INJECTIONS Past Anesthesia/Blood Transfusion Reactions: No Reported Reaction Past Psychological History: Depression Past Alcohol Use History: None Reported Additional Past Alcohol Use History / Comment(s): SMOKES < 1 PPD SINCE AGE 13 Past Drug Use History: None Reported - Past Family History Mother Family Medical History: No Reported History Medications and Allergies Home Medications Medication Instructions Recorded Confirmed Type Cyclobenzaprine [Flexeril] 10 mg PO DAILY PRN 12/12/17 09/07/24 History DULoxetine HCL [Cymbalta] 60 mg PO BID 12/12/17 09/07/24 History Gabapentin [Neurontin] 300 mg PO BID 12/12/17 09/07/24 History HYDROcodone/APAP 5-325MG [[place] 1 tab PO Q6HR PRN 12/12/17 09/07/24 History 5-325] Meloxicam [Mobic] 7.5 mg PO BID 12/12/17 09/07/24 History Fluticasone/Umeclidin/Vilanter 1 puff INHALATION RT-DAILY 01/03/24 09/07/24 History [Trelegy Ellipta 100-62.5-25] Levothyroxine Sodium [Synthroid] 88 mcg PO DAILY 01/03/24 09/07/24 History Megestrol [Megace] 400 mg PO DAILY 09/07/24 09/07/24 History Pantoprazole [Protonix] 40 mg PO DAILY 09/07/24 09/07/24 History Allergies Allergy/AdvReac Type Severity Reaction Status Date / Time No Known Allergies Allergy Verified 09/07/24 09:25 Physical Exam Vitals: Vital Signs Temp Pulse Resp BP Pulse Ox FiO2 09/07/24 10:10 97.4 F L 98 20 109/88 99 09/07/24 09:48 98 20 107/88 96 09/07/24 09:00 102 H 20 122/90 100 09/07/24 08:49 100 20 118/88 100 09/07/24 08:10 104 H 30 H 119/95 100 09/07/24 07:59 102 H 09/07/24 07:51 50 09/07/24 07:50 104 H 09/07/24 07:17 102 H 20 95/81 100 09/07/24 07:05 100 09/07/24 07:00 102 H 22 99/64 100 09/07/24 06:38 98 34 H 115/38 98 09/07/24 06:15 115 H 38 H 115/92 94 L 09/07/24 05:57 100 09/07/24 05:36 105 H 09/07/24 05:27 160 H 09/07/24 05:25 100 36 H 112/85 97 09/07/24 05:18 100 09/07/24 05:16 160 H 34 H 134/113 96 09/07/24 05:07 97.8 F 163 H 34 H 117/87 96 Intake and Output 09/06/24 09/07/24 09/07/24 22:59 06:59 14:59 Intake Total 22.200 Balance 22.200 Intake: Intake, IV Titration 22.200 Amount propofoL 1,000 mg In 22.200 Empty Bag 1 bag @ 15 MCG/ KG/MIN 4.572 mls/hr IV . [id number] [facility] Rx#:[id number] Other: Weight 50.802 kg General appearance: The patient is sedated and intubated. Appears much older than stated age. HET: Head is normocephalic and atraumatic. Conjunctiva pink. Neck: Supple without lymphadenopathy. Trachea midline. Heart: Regular. Lungs: Equal expansion, normal respiratory effort. Abdomen: Soft, no hepatomegaly, nondistended. Skin: No rashes. No jaundice. Extremities: Normal skin color and turgor. No pedal edema. Neurological: Sedated and intubated. Results CBC & Chem 7: 09/07/24 10:03 09/07/24 05:10 Labs: Abnormal Lab Results - Last 24 Hours (Table) 09/07/24 09/07/24 09/07/24 Range/Units 05:10 05:10 05:10 WBC 12.1 H (3.8-10.6) k/uL RBC 4.17 L (4.30-5.90) m/uL Hgb (13.0-17.5) gm/dL Hct (39.0-53.0) % MCV (80.0-100.0) fL MCHC (31.0-37.0) g/dL Neutrophils # 10.3 H (1.3-7.7) k/uL Lymphocytes # 0.7 L (1.0-4.8) k/uL PT 13.5 H (10.0-12.5) sec INR 1.3 H (<1.2) D-Dimer 15.36 H (<0.60) mg/L FEU ABG pH (7.35-7.45) ABG pCO2 (35-45) mmHg ABG pO2 (83-108) mmHg ABG HCO3 (21-25) mmol/L ABG O2 Saturation (94-97) % Hemoglobin (13.0-17.5) gm/dL BUN 37 H (9-20) mg/dL Plasma Lactic Acid Tonio (0.7-2.0) mmol/L Magnesium 2.5 H (1.6-2.3) mg/dL AST 2374 H (17-59) U/L ALT 1390 H (4-49) U/L Alkaline Phosphatase 127 H (38-126) U/L Troponin I (0.000-0.034) ng/mL Total Protein 6.1 L (6.3-8.2) g/dL Albumin 3.3 L (3.5-5.0) g/dL 09/07/24 09/07/24 09/07/24 Range/Units 05:10 05:10 06:59 WBC (3.8-10.6) k/uL RBC (4.30-5.90) m/uL Hgb (13.0-17.5) gm/dL Hct (39.0-53.0) % MCV (80.0-100.0) fL MCHC (31.0-37.0) g/dL Neutrophils # (1.3-7.7) k/uL Lymphocytes # (1.0-4.8) k/uL PT (10.0-12.5) sec INR (<1.2) D-Dimer (<0.60) mg/L FEU ABG pH 7.22 L (7.35-7.45) ABG pCO2 (35-45) mmHg ABG pO2 >420 H (83-108) mmHg ABG HCO3 18 L (21-25) mmol/L ABG O2 Saturation 100.0 H (94-97) % Hemoglobin 9.9 L (13.0-17.5) gm/dL BUN (9-20) mg/dL Plasma Lactic Acid Tonio 7.0 H* (0.7-2.0) mmol/L Magnesium (1.6-2.3) mg/dL AST (17-59) U/L ALT (4-49) U/L Alkaline Phosphatase (38-126) U/L Troponin I 1.560 H* (0.000-0.034) ng/mL Total Protein (6.3-8.2) g/dL Albumin (3.5-5.0) g/dL 09/07/24 09/07/24 09/07/24 Range/Units 08:13 09:24 10:03 WBC (3.8-10.6) k/uL RBC 3.79 L (4.30-5.90) m/uL Hgb 11.6 L (13.0-17.5) gm/dL Hct 38.0 L (39.0-53.0) % MCV 100.4 H D (80.0-100.0) fL MCHC 30.6 L (31.0-37.0) g/dL Neutrophils # 8.5 H (1.3-7.7) k/uL Lymphocytes # 0.4 L (1.0-4.8) k/uL PT (10.0-12.5) sec INR (<1.2) D-Dimer (<0.60) mg/L FEU ABG pH 7.27 L (7.35-7.45) ABG pCO2 49 H (35-45) mmHg ABG pO2 187 H (83-108) mmHg ABG HCO3 (21-25) mmol/L ABG O2 Saturation 99.4 H (94-97) % Hemoglobin 10.7 L (13.0-17.5) gm/dL BUN (9-20) mg/dL Plasma Lactic Acid Tonio 7.0 H* (0.7-2.0) mmol/L Magnesium (1.6-2.3) mg/dL AST (17-59) U/L ALT (4-49) U/L Alkaline Phosphatase (38-126) U/L Troponin I (0.000-0.034) ng/mL Total Protein (6.3-8.2) g/dL Albumin (3.5-5.0) g/dL Comments: Patient had CT angiogram chest which reported no acute pulmonary emboli. A large mass within the mediastinum encasing and obstructing the left main bronchus. Large right lower medial lobe mass Nominal ultrasound reports small echogenic foci within the enlarged liver may be small hemangiomas. Other etiologies are not excluding including metastasis. Additional workup with CT could be performed. There is a 4 cm isoechoic density at the lung base of uncertain etiology. Additional workup with CT chest is recommended. Assessment and Plan (1) Transaminitis Narrative/Plan: 64-year-old male presenting with shortness of breath and acute hypoxic respiratory failure and hypotension subsequently intubated and now sedated. Unknown history of any liver disease, reviewing patient's chart he has had labs times once in the past about a year ago with normal LFTs. Likely this is an acute ischemic hepatitis secondary to shock liver from hypoperfusion secondary to hypotension. Abdominal ultrasound reviewed. Hepatitis panel ordered and pending. No further workup at this time. Continue to maintain optimal blood pressures and likely will see improvement in LFTs. Current Visit: Yes Status: Acute Code(s): R74.01 - ELEVATION OF LEVELS OF LIVER TRANSAMINASE LEVELS SNOMED Code(s): 613528249 (2) Lung mass Current Visit: Yes Status: Acute Code(s): R91.8 - OTHER NONSPECIFIC ABNORMAL FINDING OF LUNG FIELD SNOMED Code(s): 863451850 (3) Acute hypoxic respiratory failure Current Visit: Yes Status: Acute Code(s): J96.01 - ACUTE RESPIRATORY FAILURE WITH HYPOXIA SNOMED Code(s): 79675438 (4) Hypotension Current Visit: Yes Status: Acute Code(s): I95.9 - HYPOTENSION, UNSPECIFIED SNOMED Code(s): 86834862 Plan: 1. Continue symptomatic and supportive care 2. Avoid hepatotoxic medications 3. Maintain optimal blood pressures, continue with pressor support as needed 4. Repeat CMP tomorrow 5. No further workup at this time Thank you for this consultation, we will continue to follow. Dr. Conrad Angulo I agree with the dictator's note, documented as a scribe by Emili Palomares.
[2024-09-07 13:29] LABS: Allen Test Performed? no
--- NOTE | 2024-09-07 13:43 | US ---
EXAMINATION TYPE: US venous doppler duplex LE RT DATE OF EXAM: 09/07/2024 1:16 PM COMPARISON: NONE CLINICAL INDICATION: Male, 64 years old with history of Right lower extremity swelling; Swelling. TECHNIQUE: The lower extremity deep venous system is examined utilizing real time linear array sonog walter with graded compression, color doppler sonography, and spectral doppler. SIDE PERFORMED: Right FINDINGS: VESSELS IMAGED: Greater Saphenous Vein * Femoral Vein Mid and Distal Popliteal Vein Small Saphenous Vein * Proximal Calf Veins (* superficial vessels) Right Leg: *Unable to visualize CFV, GSV, femoral vein prox, or deep femoral vein due to large macias ge/IV. PTVs and peroneal veins were not visualized. Difficult and limited exam, portable ICU pt unable to move legs into proper position. No evidence of DVT in veins seen. IMPRESSION: 1. Limited examination due to bandaging patient condition. 2. Limited deep venous structures visualized are without evidence of deep venous thrombosis [facility], , 09/07/2024 1:40 PM
[2024-09-07] MEDS: HEPARIN SODIUM 1,000 UN/ML (10ML VL) IV PRN (16:02)
--- NOTE | 2024-09-07 16:06 | P.CNPUL ---
History of Present Illness Consult date: 09/07/24 Requesting physician: Dennis Up Chief complaint: Shortness of breath History of present illness: This is a 64-year-old white male, heavy smoker, known history of COPD, patient was brought into the ER with worsening shortness of breath over the last 1 day. Apparently when the patient arrived he was in extreme respiratory distress, and he had to be intubated and mechanically ventilated almost shortly after he arrived to ICU as the patient did not tolerate CPAP and he continued to be quite tachypneic and short of breath. His labs showed a bit of leukocytosis, elevated D-dimer, elevated liver enzymes and elevated BNP level. Patient had negative viral screening including negative COVID, negative RSV negative influenza A and influenza B. Chest x-ray showed significant abnormality in the right lung base and there was evidence of poor aeration of the left side. CT angiogram of the chest showed large mass within the mediastinum encasing the left main bronchus there is also a right lower lobe mass anteriorly. CT of the chest showed no evidence of pulmonary embolism. In the meantime the patient was noted to be hypotensive, he did require norepinephrine, and I saw him in the ER, transferred the patient to the ICU, recommended continuing mechanical ventilation, discussed his condition with the at bedside, and I explained to the that the findings are more likely findings of sepsis, septic shock, and I am suspecting that the patient has a lung cancer involving the left lung and mediastinum. Axel santiago has been losing significant amount of weight over the last couple of years, and he has been managed for his COPD by Dr. brennan whom he has seen for the last 10 years. 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 During my evaluation the patient was on mechanical ventilation tidal volume 400 FiO2 50% rate of 20 PEEP of 5. ABG while in the ER showed a pO2 of 420 pCO2 43 pH of 7.22 patient did receive bicarb while in the ER, he was placed on propofol at 45 mcg/kg/min he was also placed on fentanyl at 0.5 mcg/kg/h and required norepinephrine at 0.03 mcg/kg/min. Upon transferring the patient to the ICU I was able to place a right femoral triple-lumen catheter and a right radial arterial line. Echocardiogram is pending, cardiology is seeing the patient for his atrial fibrillation. And he is now on amiodarone drip. Most recent ABG on 50% FiO2 showed a pO2 of 122 pCO2 48 pH of 7.31 and his rate was increased up to 22. Lactic acid was noted to be 6, patient did receive fluid boluses troponin was elevated at 1.4, C-reactive protein elevated at 19.3 Review of Systems ROS unobtainable: due to endotracheal tube (Could not obtain a review of systems from the patient, however the told me that he has been mostly weak, unable to eat, poor appetite, and significant weight loss over the last 2 years.) Past Medical History Past Medical History: Osteoarthritis (OA), Thyroid Disorder Additional Past Medical History / Comment(s): NECK AND BACK PAIN History of Any Multi-Drug Resistant Organisms: None Reported Past Surgical History: Appendectomy, Tonsillectomy Additional Past Surgical History / Comment(s): BACK INJECTIONS Past Anesthesia/Blood Transfusion Reactions: No Reported Reaction Past Psychological History: Depression Past Alcohol Use History: None Reported Additional Past Alcohol Use History / Comment(s): SMOKES < 1 PPD SINCE AGE 13 Past Drug Use History: None Reported - Past Family History Mother Family Medical History: No Reported History Medications and Allergies Home Medications Medication Instructions Recorded Confirmed Type Cyclobenzaprine [Flexeril] 10 mg PO DAILY PRN 12/12/17 09/07/24 History DULoxetine HCL [Cymbalta] 60 mg PO BID 12/12/17 09/07/24 History Gabapentin [Neurontin] 300 mg PO BID 12/12/17 09/07/24 History HYDROcodone/APAP 5-325MG [[place] 1 tab PO Q6HR PRN 12/12/17 09/07/24 History 5-325] Meloxicam [Mobic] 7.5 mg PO BID 12/12/17 09/07/24 History Fluticasone/Umeclidin/Vilanter 1 puff INHALATION RT-DAILY 01/03/24 09/07/24 History [Trelegy Ellipta 100-62.5-25] Levothyroxine Sodium [Synthroid] 88 mcg PO DAILY 01/03/24 09/07/24 History Megestrol [Megace] 400 mg PO DAILY 09/07/24 09/07/24 History Pantoprazole [Protonix] 40 mg PO DAILY 09/07/24 09/07/24 History Allergies Allergy/AdvReac Type Severity Reaction Status Date / Time No Known Allergies Allergy Verified 09/07/24 09:25 Physical Exam Vitals: Vital Signs Temp Pulse Resp BP Pulse Ox FiO2 09/07/24 15:00 82 22 91/73 95 09/07/24 14:45 82 22 87/71 93 L 09/07/24 14:30 82 22 88/69 92 L 09/07/24 14:15 97.7 F 81 23 88/72 93 L 09/07/24 14:00 80 23 87/68 91 L 09/07/24 13:45 78 22 85/68 92 L 09/07/24 13:30 77 22 87/68 92 L 09/07/24 13:15 76 22 90/71 94 L 09/07/24 13:00 83 24 90/71 100 09/07/24 12:45 96.1 F L 79 22 99/62 100 50 09/07/24 12:30 128 H 20 111/85 90 L 09/07/24 12:15 99 20 108/88 92 L 09/07/24 12:00 154 H 20 84/61 88 L 40 09/07/24 11:45 104 H 20 87/61 88 L 09/07/24 11:30 151 H 20 85/56 88 L 09/07/24 11:20 40 09/07/24 11:15 141 H 20 94/45 88 L 09/07/24 11:00 95.5 F L 103 H 20 96/77 96 09/07/24 10:45 97 20 106/86 98 09/07/24 10:32 95 20 108/87 100 40 09/07/24 10:10 97.4 F L 98 20 109/88 99 09/07/24 09:48 98 20 107/88 96 09/07/24 09:00 102 H 20 122/90 100 09/07/24 08:49 100 20 118/88 100 09/07/24 08:10 104 H 30 H 119/95 100 09/07/24 07:59 102 H 09/07/24 07:51 50 09/07/24 07:50 104 H 09/07/24 07:17 102 H 20 95/81 100 09/07/24 07:05 100 04/07/25 07:00 102 H 22 99/64 100 09/07/24 06:38 98 34 H 115/38 98 09/07/24 06:15 115 H 38 H 115/92 94 L 09/07/24 05:57 100 09/07/24 05:36 105 H 09/07/24 05:27 160 H 09/07/24 05:25 100 36 H 112/85 97 09/07/24 05:18 100 09/07/24 05:16 160 H 34 H 134/113 96 09/07/24 05:07 97.8 F 163 H 34 H 117/87 96 Intake and Output 09/07/24 09/07/24 09/07/24 06:59 14:59 22:59 Intake Total 1610.798 130 Output Total 300 40 Balance 1310.798 90 Intake: IV 1520 130 Lactated Ringers 1,000 ml 520 130 @ 130 mls/hr IV .[id number] [facility] Rx#:[id number] Sodium Chloride 0.9% 1, 1000 000 ml @ 999 mls/hr IV . Q1H1M [facility] Rx#:[id number] Intake, IV Titration 90.798 Amount Norepinephrine 4 mg In 23.713 Sodium Chloride 0.9% 250 ml @ 0.03 MCG/KG/MIN 5. 807 mls/hr IV .Q24H [facility] Rx#:[id number] propofoL 1,000 mg In 67.085 Empty Bag 1 bag @ 15 MCG/ KG/MIN 4.572 mls/hr IV . [id number] [facility] Rx#:[id number] Output: Urine 300 40 Other: Voiding Method Indwelling Catheter Weight 50.802 kg 50.802 kg ABP, PAP, CO, CI - Last 8 Hours Arterial Blood Pressure 97/66 Arterial Blood Pressure 98/66 Arterial Blood Pressure 97/66 Arterial Blood Pressure 96/65 Arterial Blood Pressure 95/65 Arterial Blood Pressure 95/65 Arterial Blood Pressure 93/65 Arterial Blood Pressure 88/56 Arterial Blood Pressure 91/60 Arterial Blood Pressure 90/56 Arterial Blood Pressure 84/57 GENERAL: Revealed a 64-year-old white male, frail looking, chronically ill, looks older than his stated age. Intubated and mechanically ventilated HEENT: Pupils are round and equally reacting to light. EOMI. No sc frailleral icterus. No conjunctival pallor. Normocephalic, atraumatic. No pharyngeal erythema. No thyromegaly. CARDIOVASCULAR: Irregular irregular rhythm, no S3 gallop, no murmur. PULMONARY: Diminished breath sound bilaterally no rhonchi no wheezes minimal crackles at the bases. Diminished breath sounds at the left side mostly ABDOMEN: Soft, nontender, nondistended, normoactive bowel sounds. No palpable organomegaly. MUSCULOSKELETAL: No deformities of the joints noted could not assess range of motion EXTREMITIES: No clubbing, no edema, no cyanosis NEUROLOGICAL: Could not assess, patient is intubated sedated on propofol. Psychiatric: Could not assess. SKIN: No rashes. Results - Laboratory Findings CBC and BMP: 09/07/24 10:03 09/07/24 05:10 ABG ABG pH 7.31 (7.35-7.45) L 09/07/24 12:30 ABG pCO2 48 mmHg (35-45) H 09/07/24 12:30 ABG pO2 122 mmHg (83-108) H 09/07/24 12:30 ABG O2 Saturation 98.5 % (94-97) H 09/07/24 12:30 PT/INR, D-dimer PT 13.5 sec (10.0-12.5) H 09/07/24 05:10 INR 1.3 (<1.2) H 09/07/24 05:10 D-Dimer 15.36 mg/L FEU (<0.60) H 09/07/24 05:10 Abnormal lab findings: Abnormal Labs 09/07/24 09/07/24 09/07/24 05:10 05:10 05:10 WBC 12.1 H RBC 4.17 L Hgb Hct MCV MCHC Neutrophils # 10.3 H Lymphocytes # 0.7 L PT 13.5 H INR 1.3 H D-Dimer 15.36 H ABG pH ABG pCO2 ABG pO2 ABG HCO3 ABG Total CO2 ABG O2 Saturation Hemoglobin BUN 37 H Plasma Lactic Acid Tonio Magnesium 2.5 H AST 2374 H ALT 1390 H Alkaline Phosphatase 127 H Troponin I C-Reactive Protein Total Protein 6.1 L Albumin 3.3 L Procalcitonin TSH 09/07/24 09/07/24 09/07/24 05:10 05:10 05:10 WBC RBC Hgb Hct MCV MCHC Neutrophils # Lymphocytes # PT INR D-Dimer ABG pH ABG pCO2 ABG pO2 ABG HCO3 ABG Total CO2 ABG O2 Saturation Hemoglobin BUN Plasma Lactic Acid Tonio 7.0 H* Magnesium AST ALT Alkaline Phosphatase Troponin I 1.560 H* C-Reactive Protein Total Protein Albumin Procalcitonin 3.92 H TSH 09/07/24 09/07/24 09/07/24 06:59 08:13 09:24 WBC RBC Hgb Hct MCV MCHC Neutrophils # Lymphocytes # PT INR D-Dimer ABG pH 7.22 L 7.27 L ABG pCO2 49 H ABG pO2 >420 H 187 H ABG HCO3 18 L ABG Total CO2 ABG O2 Saturation 100.0 H 99.4 H Hemoglobin 9.9 L 10.7 L BUN Plasma Lactic Acid Tonio 7.0 H* Magnesium AST ALT Alkaline Phosphatase Troponin I C-Reactive Protein Total Protein Albumin Procalcitonin TSH 09/07/24 09/07/24 09/07/24 10:03 10:03 10:03 WBC RBC 3.79 L Hgb 11.6 L Hct 38.0 L MCV 100.4 H D MCHC 30.6 L Neutrophils # 8.5 H Lymphocytes # 0.4 L PT INR D-Dimer ABG pH ABG pCO2 ABG pO2 ABG HCO3 ABG Total CO2 ABG O2 Saturation Hemoglobin BUN Plasma Lactic Acid Tonio Magnesium AST ALT Alkaline Phosphatase Troponin I 1.420 H* C-Reactive Protein 19.3 H Total Protein Albumin Procalcitonin TSH 09/07/24 09/07/24 09/07/24 10:03 10:58 12:30 WBC RBC Hgb Hct MCV MCHC Neutrophils # Lymphocytes # PT INR D-Dimer ABG pH 7.31 L ABG pCO2 48 H ABG pO2 122 H ABG HCO3 ABG Total CO2 25 H ABG O2 Saturation 98.5 H Hemoglobin 10.9 L BUN Plasma Lactic Acid Tonio 6.0 H* Magnesium AST ALT Alkaline Phosphatase Troponin I C-Reactive Protein Total Protein Albumin Procalcitonin TSH 5.790 H - Diagnostic Findings Chest x-ray: image reviewed (As noted in HPI) CT scan - chest: image reviewed (As noted in HPI findings are suggestive of underlying bronchogenic carcinoma/malignancy) Assessment and Plan Assessment: Impression: Acute hypercapnic respiratory failure Acute COPD exacerbation Mediastinal mass with complete obstruction of the left mainstem bronchus highly suggestive of lung CA Sepsis and septic shock is strongly suspected based on the presentation, most likely secondary to postobstructive pneumonitis Acute lactic acidosis secondary to sepsis and hypotension Postobstructive pneumonitis involving the left lung Acute transaminitis possible liver metastasis Paroxysmal atrial fibrillation History of hypothyroidism Recommendation: Admit patient to ICU Continue ventilatory support Antibiotics empirically/Zosyn Continue amiodarone for atrial fibrillation Resume home meds Treat with bronchodilators and steroids Check echocardiogram with Doppler GI and DVT prophylaxis Hemodynamic support/norepinephrine Will likely arrange for bronchoscopy and possible biopsy of the left mainstem bronchus Prognosis extremely poor and guarded Will continue to follow Discussed and updated his on his condition at bedside. Patient is critically ill Critical care time is over 55 minutes not including the time spent on procedures Time with Patient: Greater than 30
[2024-09-07] MEDS: PIPERACILLIN-TAZOBACTAM 3.375 GM in SODIUM CHLORIDE 0.9% 100 ML IVPB SCH (16:10)
[2024-09-07 16:25] LABS: Hepatitis A Antibody IgM Nonreactive (Nonreactive); Hepatitis B Core IgM Nonreactive (Nonreactive); Hepatitis B Surface Antigen Nonreactive (Nonreactive); Hepatitis C IgG Antibody Nonreactive (Nonreactive)
[2024-09-07 17:41] LABS: Glucose,Whole Blood 110 mg/dL (70-110)
[2024-09-07] MEDS ORDERED: LORazepam 1 MG/0.5 ML VIAL IV PRN (18:01)
[2024-09-07] MEDS: AMIODARONE 450 MG in DEXTROSE 5% IN WATER 250 ML IV SCH (18:08)
--- NOTE | 2024-09-07 19:54 | OP ---
OPERATIVE REPORT DATE OF SERVICE : PROCEDURE PERFORMED: Placement of a right radial arterial line. PREOPERATIVE DIAGNOSIS: Acute hypoxic respiratory failure with hypotension. POSTOPERATIVE DIAGNOSIS: Acute hypoxic respiratory failure with hypotension. ANESTHESIA USED: None deployed. DESCRIPTION OF PROCEDURE: The patient was placed in the supine position, the right wrist was prepared in a sterile fashion. Drapes were applied. The right radial artery was palpated, cannulated easily, a guidewire was placed, and a Cook's catheter was inserted over the guidewire. The guidewire was removed, good blood flow, good waveform, no complications. Line was secured using 3.0 silk sutures. MMODL / IJN: [id number] /
--- NOTE | 2024-09-07 19:54 | OP ---
OPERATIVE REPORT DATE OF SERVICE : PROCEDURE PERFORMED: Placement of a right femoral triple-lumen catheter. PREOPERATIVE DIAGNOSES: Acute hypoxic respiratory failure and sepsis with hypotension. POSTOPERATIVE DIAGNOSES: Acute hypoxic respiratory failure and sepsis with hypotension. ANESTHESIA USED: 2 mL of 1% lidocaine. DESCRIPTION OF PROCEDURE: The patient was placed in the supine position, the area of right groin was prepared in a sterile fashion and drapes were applied. The area was locally anesthetized with lidocaine. Then, the right femoral vein was easily cannulated medial to the right femoral artery, and a guidewire was placed. A triple-lumen catheter was inserted over the guidewire, the guidewire was removed. Good blood flow noted in the 3 different ports of the triple-lumen catheter, line was secured using 3.0 silk sutures, no complications. MMODL / IJN: [id number] /
[2024-09-07 23:21] LABS: Glucose,Whole Blood 113 mg/dL (70-110)
[2024-09-08 04:34] LABS: Basophils # (A) 0.02 10*3/uL (0.00-0.10); Basophils % (A) 0.2 %; HCT 32.8 % (39.6-50.0); HGB 10.9 g/dL (13.0-17.0); Lymphocytes # (A) 0.39 10*3/uL (0.90-5.00); Lymphocytes % (A) 3.9 %; MCHC 33.2 g/dL (32.0-37.0); MCV 96.2 fL (80.0-97.0); Mean Platelet Volume 9.9 fL (9.5-12.2); Neutrophils # (A) 9.06 10*3/uL (1.80-7.70); Neutrophils % (A) 90.3 %; Platelet Count 262 10*3/uL (140-440); RBC 3.41 10*6/uL (4.40-5.60); RDW 14.6 % (11.5-14.5); WBC 10.03 10*3/uL (4.50-10.00)
[2024-09-08 04:38] LABS: African American GFR (CKD) >90 (>60 ml/min/1.73 sqM); Albumin 2.3 g/dL (3.5-5.0); Alkaline Phosphatase 109 U/L (38-126); Anion Gap 7 mmol/L; Blood Urea Nitrogen 37 mg/dL (9-20); Calcium 8.1 mg/dL (8.4-10.2); Carbon Dioxide 25 mmol/L (22-30); Chloride 105 mmol/L (98-107); Glucose 116 mg/dL (74-99); Non-African American GFR(CKD) >90 (>60 ml/min/1.73 sqM); Potassium 4.4 mmol/L (3.5-5.1); Sodium 137 mmol/L (137-145); Total Bilirubin 0.8 mg/dL (0.2-1.3); Total Protein 4.7 g/dL (6.3-8.2)
[2024-09-08 04:49] LABS: INR 1.3 (<1.2); Prothrombin Time 13.6 sec (10.0-12.5)
[2024-09-08 05:04] LABS: AST 5149 U/L (17-59)
[2024-09-08 05:05] LABS: ALT 3908 U/L (4-49)
[2024-09-08 05:48] LABS: ABG Base Excess -1.1 mmol/L; ABG HCO3 25 mmol/L (21-25); ABG Oxygen Saturation 99.5 % (94-97); ABG PCO2 45 mmHg (35-45); ABG PH 7.35 (7.35-7.45); ABG PO2 171 mmHg (83-108); ABG TCO2 26 mmol/L (19-24)
[2024-09-08 05:49] LABS: Allen Test Performed? no
[2024-09-08 05:55] LABS: Glucose,Whole Blood 134 mg/dL (70-110)
--- NOTE | 2024-09-08 07:29 | CA ---
Transthoracic Echo Report Name: Zoran Fraga Age: 64 Gender: M : 1960 Exam Date: 09/07/2024 13:20 Exam Location: [facility] Ht (in): 72 Wt (lb): 112 Ordering Physician: Charlene Bergman Attending/Referring Phys: Delivery Technician Tiny Mata RDCS Procedure CPT: Indications: chf Cardiac Hx: Technical Quality: Good Contrast 1: Definity Total Dose (mL): 3 Contrast 2: Total Dose (mL): MEASUREMENTS (Male / Female) Normal Values 2D ECHO LV Diastolic Diameter PLAX 4.5 cm 4.2 - 5.9 / 3.9 - 5.3 cm LV Systolic Diameter PLAX 4.4 cm IVS Diastolic Thickness 0.6 cm 0.6 - 1.0 / 0.6 - 0.9 cm LVPW Diastolic Thickness 0.8 cm 0.6 - 1.0 / 0.6 - 0.9 cm LV Relative Wall Thickness 0.3 LVOT Diameter 2.1 cm LV Diastolic Volume MOD BP 118.2 cm??? 67 - 155 / 56 - 104 cm??? LV Systolic Volume MOD BP 101.7 cm??? 22 - 58 / 19 - 49 cm??? LV Ejection Fraction MOD BP 13.9 % >= 55 % LV Cardiac Index MOD BP 976.0 cm???/min???m??? LV Diastolic Volume MOD 4C 117.5 cm??? LV Systolic Volume MOD 4C 104.4 cm??? LV Ejection Fraction MOD 4C 11.1 % LV Cardiac Index MOD 4C 777.6 cm???/min???m??? LV Diastolic Length 4C 7.7 cm LV Systolic Length 4C 7.3 cm LV Diastolic Volume MOD 2C 114.7 cm??? LV Systolic Volume MOD 2C 94.9 cm??? LV Ejection Fraction MOD 2C 17.3 % LV Cardiac Index MOD 2C 1177.8 cm???/min???m??? LV Diastolic Length 2C 7.4 cm LV Systolic Length 2C 6.9 cm LA Volume 55.2 cm??? 18 - 58 / 22 - 52 cm??? LA Volume Index 34.9 cm???/m??? 16 - 28 cm???/m??? Ascending Aorta Diameter 3.1 cm DOPPLER AV Peak Velocity 65.7 cm/s AV Peak Gradient 1.7 mmHg AV Mean Velocity 44.2 cm/s AV Mean Gradient 0.9 mmHg AV Velocity Time Integral 9.5 cm LVOT Peak Velocity 46.6 cm/s LVOT Peak Gradient 0.9 mmHg LVOT Velocity Time Integral 7.0 cm LVOT Stroke Volume 23.8 cm??? LVOT Stroke Volume Index 14.3 ml/m??? LVOT Cardiac Index 1414.3 cm???/min???m??? AV Area Cont Eq vti 2.5 cm??? AV Area Cont Eq pk 2.4 cm??? MV Area PHT 3.6 cm??? Mitral E Point Velocity 50.3 cm/s Mitral A Point Velocity 32.2 cm/s Mitral E to A Ratio 1.6 MV Deceleration Time 211.1 ms TR Peak Velocity 250.1 cm/s TR Peak Gradient 25.0 mmHg Right Atrial Pressure 20.0 mmHg Pulmonary Artery Systolic Pressu 45.0 mmHg Right Ventricular Systolic Press 45.0 mmHg PV Peak Velocity 47.3 cm/s PV Peak Gradient 0.9 mmHg FINDINGS Left Ventricle Left ventricular ejection fraction is estimated at 10-15 %. Severely increased left ventricular systolic volume. Severely decreased left ventricular ejection fraction with regional variability. Left ventricular wall thickness normal. Right Ventricle Mild right ventricular dilatation. Moderately reduced right ventricular global systolic function. Moderate pulmonary hypertension. Right Atrium Normal right atrial size. Left Atrium Moderately increased left atrial volume. Mitral Valve Mitral valve thickened. No evidence for mitral valve prolapse. No mitral stenosis. Moderate mitral regurgitation. Aortic Valve Trileaflet aortic valve. No aortic stenosis. Trace aortic regurgitation. Tricuspid Valve Structurally normal tricuspid valve. No tricuspid stenosis. Mild tricuspid regurgitation. Pulmonic Valve Structurally normal pulmonic valve. No pulmonic stenosis. No pulmonic regurgitation. Pericardium Small pericardial effusion. Pleural effusion. Aorta Normal size aortic root and proximal ascending aorta. CONCLUSIONS Severe cardiomyopathy with EF at 10 to 15% Moderate mitral regurgitation Small circumferential pericardial effusion Pleural effusion Previewed by: Dr. Marty Best MD (Electronically Signed) Final Date: 08 September 2024 07:28
--- NOTE | 2024-09-08 07:34 | P.PN ---
Subjective Progress Note Date: 09/08/24 PROGRESS NOTE The patient is a 64-year-old male who presented with significant dyspnea hypoxemia and hypotension, was intubated. Cardiology consultation was requested because of elevation of troponin. No prior history is available the patient chest x-ray showed total opacification and collapse of the left lung and evidence of tumor. He had an episode of atrial fibrillation after presenting to the ICU, he is back to sinus mechanism. He is hypotensive requiring norepinephrine. No other prior history is available to me and no family is available. Initial blood gases after intubation showed pH 7.22, his D-dimer was 15.3 and his troponin was 1.5. [place] [address] and abnormality and his AST and ALT. His plasma lactic acid was 7.0 on presentation. His EKG showed sinus mechanism with T wave inversion anteriorly. September 08: The patient remains intubated, in sinus mechanism on norepinephrine. He is scheduled to undergo bronchoscopy and biopsy today. There is no evidence of recurrent atrial fibrillation or ventricular tachyarrhythmia. His urinary output has been stable. His echocardiogram report showed severe cardiomyopathy with an ejection fraction of 10-15 % with moderate mitral regurgitation and moderate pulmonary hypertension. The duration of his cardiomyopathy is unknown. The chest x-ray continues to show complete collapse of the left lung. Medications: IV amiodarone, IV heparin, Zithromax, Solu-Medrol, norepinephrine, Zosyn PHYSICAL EXAMINATION: Blood pressure 100/60 heart rate 71, intubated and sedated LUNGS: Clear to auscultation anteriorly on the right side no air exchange on the left HEART: Regular rate and rhythm, S1, S2. No S3. Systolic ejection murmur ABDOMEN: Soft, no organomegaly EXTREMETIES: No edema LAB: Hemoglobin 10.9, WBC 10.03. Hemoglobin 262. pH 7.35, PO2 171. BUN 37, creatinine 0.81. Potassium 4.4. AST 5149, ALT 3908. IMPRESSION: 1. Acute respiratory failure with total collapse of the left lung and evidence of mass highly suggestive of malignancy and possible postobstructive pneumonitis 2. Troponin elevation most likely type II myocardial infarction 3. Severe cardiomyopathy of unknown etiology and duration 4. Paroxysmal atrial fibrillation, maintaining sinus mechanism 5. Acute liver failure PLAN: 1. Bronchoscopy and biopsy today 2. Continue supportive care 3. Prognosis extremely poor 4. Depending on his progress further recommendations will be made Objective - Vital Signs Vital signs: Vital Signs Temp 98.8 F 09/08/24 04:00 Pulse 71 09/08/24 07:00 Resp 22 09/08/24 07:00 BP 87/66 09/08/24 07:00 Pulse Ox 96 09/08/24 07:00 FiO2 40 09/08/24 05:49 Intake & Output 09/07/24 09/08/24 09/08/24 18:59 06:59 18:59 Intake Total 2300.828 1951.513 130 Output Total 465 390 50 Balance 6845.692 0073.513 80 Weight 50.802 kg 54.9 kg Intake: IV 2170 1430 130 Lactated Ringers 1,000 ml 1170 1430 130 @ 130 mls/hr IV .[id number] [facility] Rx#:[id number] Sodium Chloride 0.9% 1, 1000 000 ml @ 999 mls/hr IV . Q1H1M [facility] Rx#:[id number] Intake, IV Titration 130.828 521.513 Amount Heparin Sod,Pork in 0.45% 40.03 112.649 NaCl 25,000 unit In 0.45 % NaCl 1 250ml.bag @ 12 UNITS/KG/HR 6.096 mls/hr IV .Q24H [facility] Rx#: [id number] Norepinephrine 4 mg In 23.713 217.875 Sodium Chloride 0.9% 250 ml @ 0.03 MCG/KG/MIN 5. 807 mls/hr IV .Q24H [facility] Rx#:[id number] propofoL 1,000 mg In 67.085 190.989 Empty Bag 1 bag @ 15 MCG/ KG/MIN 4.572 mls/hr IV . [id number] [facility] Rx#:[id number] Output: Urine 465 390 50 Other: Voiding Method Indwelling Catheter Indwelling Catheter ABP, PAP, CO, CI - Last Documented Arterial Blood Pressure 100/59 - Labs CBC & Chem 7: 09/08/24 03:57 09/08/24 03:57 Labs: Abnormal Lab Results - Last 24 Hours (Table) 09/07/24 09/07/24 09/07/24 Range/Units 05:10 05:10 08:13 WBC (4.50-10.00) 10*3/uL RBC (4.30-5.90) m/uL Hgb (13.0-17.5) gm/dL Hct (39.0-53.0) % MCV (80.0-100.0) fL MCHC (31.0-37.0) g/dL Immature Gran # (0.00-0.04) 10*3/uL Neutrophils # (1.3-7.7) k/uL Lymphocytes # (1.0-4.8) k/uL Eosinophils # (0.04-0.35) 10*3/uL ESR 55 H (0-20) mm/Hr PT (10.0-12.5) sec INR (<1.2) APTT (22.0-30.0) sec ABG pH (7.35-7.45) ABG pCO2 (35-45) mmHg ABG pO2 (83-108) mmHg ABG Total CO2 (19-24) mmol/L ABG O2 Saturation (94-97) % Hemoglobin (13.0-17.5) gm/dL BUN (9-20) mg/dL Glucose (74-99) mg/dL POC Glucose (mg/dL) (70-110) mg/dL Plasma Lactic Acid Tonio 7.0 H* (0.7-2.0) mmol/L Calcium (8.4-10.2) mg/dL AST (17-59) U/L ALT (4-49) U/L Troponin I (0.000-0.034) ng/mL C-Reactive Protein (<1.0) mg/dL Total Protein (6.3-8.2) g/dL Albumin (3.5-5.0) g/dL Procalcitonin 3.92 H (0.02-0.50) ng/mL TSH (0.465-4.680) mIU/L 09/07/24 09/07/24 09/07/24 Range/Units 09:24 10:03 10:03 WBC (4.50-10.00) 10*3/uL RBC 3.79 L (4.30-5.90) m/uL Hgb 11.6 L (13.0-17.5) gm/dL Hct 38.0 L (39.0-53.0) % MCV 100.4 H D (80.0-100.0) fL MCHC 30.6 L (31.0-37.0) g/dL Immature Gran # (0.00-0.04) 10*3/uL Neutrophils # 8.5 H (1.3-7.7) k/uL Lymphocytes # 0.4 L (1.0-4.8) k/uL Eosinophils # (0.04-0.35) 10*3/uL ESR (0-20) mm/Hr PT (10.0-12.5) sec INR (<1.2) APTT (22.0-30.0) sec ABG pH 7.27 L (7.35-7.45) ABG pCO2 49 H (35-45) mmHg ABG pO2 187 H (83-108) mmHg ABG Total CO2 (19-24) mmol/L ABG O2 Saturation 99.4 H (94-97) % Hemoglobin 10.7 L (13.0-17.5) gm/dL BUN (9-20) mg/dL Glucose (74-99) mg/dL POC Glucose (mg/dL) (70-110) mg/dL Plasma Lactic Acid Tonio (0.7-2.0) mmol/L Calcium (8.4-10.2) mg/dL AST (17-59) U/L ALT (4-49) U/L Troponin I (0.000-0.034) ng/mL C-Reactive Protein 19.3 H (<1.0) mg/dL Total Protein (6.3-8.2) g/dL Albumin (3.5-5.0) g/dL Procalcitonin (0.02-0.50) ng/mL TSH (0.465-4.680) mIU/L 09/07/24 09/07/24 09/07/24 Range/Units 10:03 10:03 10:58 WBC (4.50-10.00) 10*3/uL RBC (4.30-5.90) m/uL Hgb (13.0-17.5) gm/dL Hct (39.0-53.0) % MCV (80.0-100.0) fL MCHC (31.0-37.0) g/dL Immature Gran # (0.00-0.04) 10*3/uL Neutrophils # (1.3-7.7) k/uL Lymphocytes # (1.0-4.8) k/uL Eosinophils # (0.04-0.35) 10*3/uL ESR (0-20) mm/Hr PT (10.0-12.5) sec INR (<1.2) APTT (22.0-30.0) sec ABG pH (7.35-7.45) ABG pCO2 (35-45) mmHg ABG pO2 (83-108) mmHg ABG Total CO2 (19-24) mmol/L ABG O2 Saturation (94-97) % Hemoglobin (13.0-17.5) gm/dL BUN (9-20) mg/dL Glucose (74-99) mg/dL POC Glucose (mg/dL) (70-110) mg/dL Plasma Lactic Acid Tonio 6.0 H* (0.7-2.0) mmol/L Calcium (8.4-10.2) mg/dL AST (17-59) U/L ALT (4-49) U/L Troponin I 1.420 H* (0.000-0.034) ng/mL C-Reactive Protein (<1.0) mg/dL Total Protein (6.3-8.2) g/dL Albumin (3.5-5.0) g/dL Procalcitonin (0.02-0.50) ng/mL TSH 5.790 H (0.465-4.680) mIU/L 09/07/24 09/07/24 09/07/24 Range/Units 12:30 15:20 15:20 WBC (4.50-10.00) 10*3/uL RBC (4.30-5.90) m/uL Hgb (13.0-17.5) gm/dL Hct (39.0-53.0) % MCV (80.0-100.0) fL MCHC (31.0-37.0) g/dL Immature Gran # (0.00-0.04) 10*3/uL Neutrophils # (1.3-7.7) k/uL Lymphocytes # (1.0-4.8) k/uL Eosinophils # (0.04-0.35) 10*3/uL ESR (0-20) mm/Hr PT (10.0-12.5) sec INR (<1.2) APTT (22.0-30.0) sec ABG pH 7.31 L (7.35-7.45) ABG pCO2 48 H (35-45) mmHg ABG pO2 122 H (83-108) mmHg ABG Total CO2 25 H (19-24) mmol/L ABG O2 Saturation 98.5 H (94-97) % Hemoglobin 10.9 L (13.0-17.5) gm/dL BUN (9-20) mg/dL Glucose (74-99) mg/dL POC Glucose (mg/dL) (70-110) mg/dL Plasma Lactic Acid Tonio 3.6 H* (0.7-2.0) mmol/L Calcium (8.4-10.2) mg/dL AST (17-59) U/L ALT (4-49) U/L Troponin I 1.080 H* (0.000-0.034) ng/mL C-Reactive Protein (<1.0) mg/dL Total Protein (6.3-8.2) g/dL Albumin (3.5-5.0) g/dL Procalcitonin (0.02-0.50) ng/mL TSH (0.465-4.680) mIU/L 09/07/24 09/07/24 09/07/24 Range/Units 18:22 22:11 23:19 WBC (4.50-10.00) 10*3/uL RBC (4.30-5.90) m/uL Hgb (13.0-17.5) gm/dL Hct (39.0-53.0) % MCV (80.0-100.0) fL MCHC (31.0-37.0) g/dL Immature Gran # (0.00-0.04) 10*3/uL Neutrophils # (1.3-7.7) k/uL Lymphocytes # (1.0-4.8) k/uL Eosinophils # (0.04-0.35) 10*3/uL ESR (0-20) mm/Hr PT (10.0-12.5) sec INR (<1.2) APTT (22.0-30.0) sec ABG pH (7.35-7.45) ABG pCO2 (35-45) mmHg ABG pO2 (83-108) mmHg ABG Total CO2 (19-24) mmol/L ABG O2 Saturation (94-97) % Hemoglobin (13.0-17.5) gm/dL BUN (9-20) mg/dL Glucose (74-99) mg/dL POC Glucose (mg/dL) 113 H (70-110) mg/dL Plasma Lactic Acid Tonio 3.1 H* 2.9 H* (0.7-2.0) mmol/L Calcium (8.4-10.2) mg/dL AST (17-59) U/L ALT (4-49) U/L Troponin I (0.000-0.034) ng/mL C-Reactive Protein (<1.0) mg/dL Total Protein (6.3-8.2) g/dL Albumin (3.5-5.0) g/dL Procalcitonin (0.02-0.50) ng/mL TSH (0.465-4.680) mIU/L 09/08/24 09/08/24 09/08/24 Range/Units 00:54 03:57 03:57 WBC 10.03 H (4.50-10.00) 10*3/uL RBC 3.41 L (4.30-5.90) m/uL Hgb 10.9 L (13.0-17.5) gm/dL Hct 32.8 L (39.0-53.0) % MCV (80.0-100.0) fL MCHC (31.0-37.0) g/dL Immature Gran # 0.06 H (0.00-0.04) 10*3/uL Neutrophils # 9.06 H (1.3-7.7) k/uL Lymphocytes # 0.39 L (1.0-4.8) k/uL Eosinophils # 0.00 L (0.04-0.35) 10*3/uL ESR (0-20) mm/Hr PT 13.6 H (10.0-12.5) sec INR 1.3 H (<1.2) APTT (22.0-30.0) sec ABG pH (7.35-7.45) ABG pCO2 (35-45) mmHg ABG pO2 (83-108) mmHg ABG Total CO2 (19-24) mmol/L ABG O2 Saturation (94-97) % Hemoglobin (13.0-17.5) gm/dL BUN (9-20) mg/dL Glucose (74-99) mg/dL POC Glucose (mg/dL) (70-110) mg/dL Plasma Lactic Acid Tonio 2.8 H* (0.7-2.0) mmol/L Calcium (8.4-10.2) mg/dL AST (17-59) U/L ALT (4-49) U/L Troponin I (0.000-0.034) ng/mL C-Reactive Protein (<1.0) mg/dL Total Protein (6.3-8.2) g/dL Albumin (3.5-5.0) g/dL Procalcitonin (0.02-0.50) ng/mL TSH (0.465-4.680) mIU/L 09/08/24 09/08/24 09/08/24 Range/Units 03:57 03:57 03:57 WBC (4.50-10.00) 10*3/uL RBC (4.30-5.90) m/uL Hgb (13.0-17.5) gm/dL Hct (39.0-53.0) % MCV (80.0-100.0) fL MCHC (31.0-37.0) g/dL Immature Gran # (0.00-0.04) 10*3/uL Neutrophils # (1.3-7.7) k/uL Lymphocytes # (1.0-4.8) k/uL Eosinophils # (0.04-0.35) 10*3/uL ESR (0-20) mm/Hr PT (10.0-12.5) sec INR (<1.2) APTT 30.2 H (22.0-30.0) sec ABG pH (7.35-7.45) ABG pCO2 (35-45) mmHg ABG pO2 (83-108) mmHg ABG Total CO2 (19-24) mmol/L ABG O2 Saturation (94-97) % Hemoglobin (13.0-17.5) gm/dL BUN 37 H (9-20) mg/dL Glucose 116 H (74-99) mg/dL POC Glucose (mg/dL) (70-110) mg/dL Plasma Lactic Acid Tonio 2.5 H* (0.7-2.0) mmol/L Calcium 8.1 L (8.4-10.2) mg/dL AST 5149 H (17-59) U/L ALT 3908 H (4-49) U/L Troponin I (0.000-0.034) ng/mL C-Reactive Protein (<1.0) mg/dL Total Protein 4.7 L (6.3-8.2) g/dL Albumin 2.3 L (3.5-5.0) g/dL Procalcitonin (0.02-0.50) ng/mL TSH (0.465-4.680) mIU/L 09/08/24 09/08/24 Range/Units 05:43 05:54 WBC (4.50-10.00) 10*3/uL RBC (4.30-5.90) m/uL Hgb (13.0-17.5) gm/dL Hct (39.0-53.0) % MCV (80.0-100.0) fL MCHC (31.0-37.0) g/dL Immature Gran # (0.00-0.04) 10*3/uL Neutrophils # (1.3-7.7) k/uL Lymphocytes # (1.0-4.8) k/uL Eosinophils # (0.04-0.35) 10*3/uL ESR (0-20) mm/Hr PT (10.0-12.5) sec INR (<1.2) APTT (22.0-30.0) sec ABG pH (7.35-7.45) ABG pCO2 (35-45) mmHg ABG pO2 171 H (83-108) mmHg ABG Total CO2 26 H (19-24) mmol/L ABG O2 Saturation 99.5 H (94-97) % Hemoglobin 10.8 L (13.0-17.5) gm/dL BUN (9-20) mg/dL Glucose (74-99) mg/dL POC Glucose (mg/dL) 134 H (70-110) mg/dL Plasma Lactic Acid Tonio (0.7-2.0) mmol/L Calcium (8.4-10.2) mg/dL AST (17-59) U/L ALT (4-49) U/L Troponin I (0.000-0.034) ng/mL C-Reactive Protein (<1.0) mg/dL Total Protein (6.3-8.2) g/dL Albumin (3.5-5.0) g/dL Procalcitonin (0.02-0.50) ng/mL TSH (0.465-4.680) mIU/L Microbiology - Last 24 Hours (Table) 09/07/24 21:50 Gram Stain - Preliminary Sputum
--- NOTE | 2024-09-08 07:40 | XR ---
EXAMINATION TYPE: XR chest 1V portable DATE OF EXAM: 09/08/2024 5:24 AM COMPARISON: None. CLINICAL INDICATION: Male, 64 years old with history of Tube placement, TECHNIQUE: XR chest 1V portable view(s) obtained. FINDINGS: There is mediastinal shift to the left. There is opacification to the left lung field. The pulmonary vasculature is normal. Mild right lower lobe infiltrate is present. Endotracheal tube tip is 4 cm above the rito IMPRESSION: 1. Increasing opacification to the left lung field with mediastinal shift to the left. Mild right low er lobe infiltrate is present. [facility], , 09/08/2024 7:38 AM
[2024-09-08 09:26] LABS: Chol/HDL Ratio 2.96 Ratio; LDL Cholesterol,Calculated 41.9 mg/dL (0.0-131.0)
--- NOTE | 2024-09-08 09:48 | XR ---
EXAMINATION TYPE: XR chest 1V portable DATE OF EXAM: 09/08/2024 9:33 AM COMPARISON: 09/08/2024 CLINICAL INDICATION: Male, 64 years old with history of Tube placement, difficulty breathing, previou s abnormal chest TECHNIQUE: XR chest 1V portable view(s) obtained. FINDINGS: The heart size is normal. The pulmonary vasculature is normal. There is persistent opacification of the left lung. Mild right lower lobe infiltrate may have slight improvement over the interval Endotracheal tube tip is 3 cm above the rito. EKG leads overlie the chest. IMPRESSION: 1. Opacified left lung. 2. Endotracheal tube tip above the rito. 3. Improving minimal right lower lobe infiltrate. [facility], , 09/08/2024 9:46 AM
--- NOTE | 2024-09-08 10:38 | P.PN ---
Subjective History of present illness; patient is a 64-year-old gentleman with past medical history significant for COPD who presented to the ER because of shortness of breath. Most of the history is limited and is obtained from the EMR. According to that patient has been having shortness of breath for the last day. Shortness of breath is present at rest as on exertion. Patient has a hard time breathing. Denied any chest pain. did mention the patient has been losing weight and was having night sweats. Because of shortness of breath, EMS was called and patient was placed on CPAP, patient continued to be tachypneic. In the ER, patient was worked up Initial lab work done in the ER showed WBC 12.9, hemoglobin 13.1, INR 1.3, D- dimer 15.36, sodium 138, potassium 5, BUN 37, creatinine 0.88, lactate 7 magnesium 2.5, AST 2374, ALT 1390, troponin 1.560 proBNP 29,900 Influenza A not detected Influenza B not detected RSV not detected COVID-19 not detected EKG done in the ER showed heart rate of 90, no ST segment elevation or depression seen, no T-wave inversions seen. Chest x-ray done in the ER showed left-sided pleural effusion and pneumonia, opacity in the right lung base could be consolidative opacity versus pulm nodule. Leftward deviation of the thoracic aorta CT chest PE protocol done showed no evidence of any PE, no mediastinal or hilar lymph adenopathy. Large mass within the mediastinum encasing and obstructing left main bronchus, large right lower medial lobe mass. While in the ER, patient continued to be tachypnea, patient was transition to BiPAP initially but patient continued to be tachypneic. Decision was made to p ursue mechanical ventilation, patient was intubated and transferred to ICU 09/08 Patient remains in the ICU sedated and intubated Patient undergoing a bronchoscopy today. Blood pressure 88/61, patient is afebrile. Breathing rate around 22 and he is on FiO2 40% WBC 10.0, hemoglobin 10.9. INR 1.3. pH normal 7.3 and pCO2 45. BMP is unremarkable. Lactic acid elevated 2.5. AST 5149 and ALT 08/10/2007. Chest x-ray from today: Increased opacification of the left lung field with mediastinal shift to the left mild right lower lobe infiltrate is present. Per radiologist. I agree the image and agree. There is almost complete opacification of the left side. Patient remains on Zosyn, heparin drip and amiodarone drip Active Medications Generic Name Dose Route Start Last Admin Trade Name Freq PRN Reason Stop Dose Admin Acetaminophen 650 mg 09/07/24 06:48 Acetaminophen Suppository 650 Mg Supp RECTAL Q4HR PRN Fever And/ Or Mild Pain Albuterol/Ipratropium 3 ml 09/07/24 08:00 09/08/24 08:25 Ipratropium-Albuterol 3 Ml Neb INHALATION 3 ml RT-Q4H JENNIFER Administration Albuterol/Ipratropium 3 ml 09/07/24 05:56 Ipratropium-Albuterol 3 Ml Neb INHALATION RT-Q2H PRN Shortness Of Breath Or Wheezing Chlorhexidine Gluconate 15 ml 09/08/24 21:00 Chlorhexidine Gluconate 15 Ml Cup MUCOUS MEM BID JENNIFER Fentanyl Citrate 50 mcg 09/07/24 05:56 Fentanyl (Pf) 50 Mcg/Ml 2 Ml Amp IVP Q2HR PRN Severe Pain (Scale 7 to 10) Heparin Sodium (Porcine) 0 unit 09/07/24 06:52 09/08/24 05:28 Heparin Sodium 1,000 Un/Ml (10ml Vl) IV 2,500 unit PER PROTOCOL PRN Administration Low PTT Protocol Fentanyl Citrate 1,000 mcg/ 100 mls @ 2.54 mls/hr 09/07/24 06:00 09/08/24 09 :59 Sodium Chloride IV 0.5 mcg/kg/hr .Q24H JENNIFER 2.54 mls/hr Titration Protocol 0.5 MCG/KG/HR Propofol 1,000 mg/ IV Solution 100 mls @ 4.572 mls/hr 09/07/24 06:00 09/08/24 10:00 IV 35 mcg/kg/min .[id number] JENNIFER 10.668 mls/hr Titration Protocol 15 MCG/KG/MIN Norepinephrine Bitartrate 4 mg 254 mls @ 5.807 mls/hr 09/07/24 07:00 09/08/24 09:01 / Sodium Chloride IV 0 mcg/kg/min .Q24H JENNIFER 0 mls/hr Titration Protocol 0.03 MCG/KG/MIN Lactated Ringer's 1,000 mls @ 10 mls/hr 09/07/24 07:00 09/08/24 08:26 Lactated Ringers IV Not Given .Q24H JENNIFER Heparin Sodium/Sodium Chloride 250 mls @ 6.096 mls/hr 09/07/24 07:15 09/08/24 10:08 25,000 unit/ Sodium Chloride IV 0 units/kg/hr .Q24H JENNIFER 0 mls/hr Titration Protocol 12 UNITS/KG/HR Piperacillin Sod/Tazobactam 100 mls @ 25 mls/hr 09/07/24 16:00 09/08/24 08:21 Sod 3.375 gm/ Sodium Chloride IVPB 25 mls/hr Q8HR JENNIFER Administration Protocol Amiodarone HCl 450 mg/ 250 mls @ 16.667 mls/hr 09/07/24 17:30 09/08/24 08:22 Dextrose/Water IV 09/08/24 11:29 0.5 mg/min .Q15H JENNIFER 16.667 mls/hr Administration Protocol 0.5 MG/MIN Lorazepam 1 mg 09/07/24 18:01 Lorazepam 1 Mg/0.5 Ml Vial IV Q6HR PRN Anxiety Miscellaneous Information 1 each 09/07/24 06:48 Potassium Replacement Protocol 1 Each Misc MISCELLANE DAILY PRN Per Protocol Miscellaneous Information 1 each 09/07/24 06:48 Magnesium Replacement Protocol 1 Each Misc MISCELLANE DAILY PRN Per Protocol Protocol Miscellaneous Information 1 each 09/07/24 06:48 Phosphorus Replacement Protoco 1 Each Misc MISCELLANE DAILY PRN Per Protocol Protocol Morphine Sulfate 2 mg 09/07/24 06:48 Morphine Sulfate 2 Mg/Ml Syringe IV Q2HR PRN Moderate Pain (Scale 4 to 6) Morphine Sulfate 4 mg 09/07/24 06:48 Morphine Sulfate 4 Mg/Ml Syringe IV Q3HR PRN Severe Pain (Scale 7 to 10) Naloxone HCl 0.2 mg 09/07/24 06:46 Naloxone 0.4 Mg/Ml 1 Ml Vial IV Q2M PRN Opioid Reversal Pantoprazole Sodium 40 mg 09/07/24 09:00 09/08/24 08:23 Pantoprazole 40 Mg/10 Ml Vial IV 40 mg DAILY JENNIFER Administration Objective - Vital Signs Vital signs: Vital Signs Temp 98.4 F 09/08/24 08:00 Pulse 70 09/08/24 08:45 Resp 22 09/08/24 08:45 BP 87/66 09/08/24 07:00 Pulse Ox 100 09/08/24 08:45 FiO2 40 09/08/24 08:27 Intake & Output 09/07/24 09/08/24 09/08/24 18:59 06:59 18:59 Intake Total 2300.828 1951.513 924.832 Output Total 465 390 135 Balance 8747.607 5603.513 789.832 Weight 50.802 kg 54.9 kg Intake: IV 2170 1430 490 Lactated Ringers 1,000 ml 1170 1430 390 @ 130 mls/hr IV .[id number] JENNIFER Rx#:[id number] Piperacillin-Tazobactam 3 100 .375 gm In Sodium Chloride 0.9% 100 ml @ 25 mls/hr IVPB Q8HR JENNIFER Rx# :[id number] Sodium Chloride 0.9% 1, 1000 000 ml @ 999 mls/hr IV . Q1H1M ONE Rx#:[id number] Intake, IV Titration 130.828 521.513 434.832 Amount Amiodarone 450 mg In 237.227 Dextrose 5% in Water 250 ml @ 0.5 MG/MIN 16.667 mls/hr IV .Q15H JENNIFER Rx#: [id number] Heparin Sod,Pork in 0.45% 40.03 112.649 49.787 NaCl 25,000 unit In 0.45 % NaCl 1 250ml.bag @ 12 UNITS/KG/HR 6.096 mls/hr IV .Q24H JENNIFER Rx#: [id number] Norepinephrine 4 mg In 23.713 217.875 15.936 Sodium Chloride 0.9% 250 ml @ 0.03 MCG/KG/MIN 5. 807 mls/hr IV .Q24H JENNIFER Rx#:[id number] fentaNYL (PF). 1,000 mcg 62.611 In Sodium Chloride 0.9% 80 ml @ 0.5 MCG/KG/HR 2. 54 mls/hr IV .Q24H JENNIFER Rx #:[id number] propofoL 1,000 mg In 67.085 190.989 69.271 Empty Bag 1 bag @ 15 MCG/ KG/MIN 4.572 mls/hr IV . [id number] [facility] Rx#:[id number] Output: Urine 465 390 135 Other: Voiding Method Indwelling Catheter Indwelling Catheter ABP, PAP, CO, CI - Last Documented Arterial Blood Pressure 88/61 - Exam -GENERAL: The patient is sedated and intubated HEENT: Pupils are round and equally reacting to light. EOMI. No scleral icterus. No conjunctival pallor. Normocephalic, atraumatic. No pharyngeal erythema. No thyromegaly. CARDIOVASCULAR: S1 and S2 present. No murmurs, rubs, or gallops. PULMONARY: Chest is clear to auscultation, no wheezing , no crackles. ABDOMEN: Soft, nontender, nondistended, normoactive bowel sounds. No palpable organomegaly. MUSCULOSKELETAL: No joint swelling or deformity. EXTREMITIES: No cyanosis, clubbing, or pedal edema. NEUROLOGICAL: Gross neurological examination did not reveal any focal deficits. SKIN: No rashes. no petechiae. - Labs CBC & Chem 7: 09/08/24 03:57 09/08/24 03:57 Labs: Abnormal Lab Results - Last 24 Hours (Table) 09/07/24 09/07/24 09/07/24 Range/Units 05:10 05:10 10:03 WBC (4.50-10.00) 10*3/uL RBC 3.79 L (4.30-5.90) m/uL Hgb 11.6 L (13.0-17.5) gm/dL Hct 38.0 L (39.0-53.0) % MCV 100.4 H D (80.0-100.0) fL MCHC 30.6 L (31.0-37.0) g/dL Immature Gran # (0.00-0.04) 10*3/uL Neutrophils # 8.5 H (1.3-7.7) k/uL Lymphocytes # 0.4 L (1.0-4.8) k/uL Eosinophils # (0.04-0.35) 10*3/uL ESR 55 H (0-20) mm/Hr PT (10.0-12.5) sec INR (<1.2) APTT (22.0-30.0) sec ABG pH (7.35-7.45) ABG pCO2 (35-45) mmHg ABG pO2 (83-108) mmHg ABG Total CO2 (19-24) mmol/L ABG O2 Saturation (94-97) % Hemoglobin (13.0-17.5) gm/dL BUN (9-20) mg/dL Glucose (74-99) mg/dL POC Glucose (mg/dL) (70-110) mg/dL Plasma Lactic Acid Tonio (0.7-2.0) mmol/L Calcium (8.4-10.2) mg/dL AST (17-59) U/L ALT (4-49) U/L Troponin I (0.000-0.034) ng/mL C-Reactive Protein (<1.0) mg/dL Total Protein (6.3-8.2) g/dL Albumin (3.5-5.0) g/dL HDL Cholesterol (40.00-60.00) mg/dL Procalcitonin 3.92 H (0.02-0.50) ng/mL TSH (0.465-4.680) mIU/L IgG1 (382.40-928.60) mg/dL 09/07/24 09/07/24 09/07/24 Range/Units 10:03 10:03 10:03 WBC (4.50-10.00) 10*3/uL RBC (4.30-5.90) m/uL Hgb (13.0-17.5) gm/dL Hct (39.0-53.0) % MCV (80.0-100.0) fL MCHC (31.0-37.0) g/dL Immature Gran # (0.00-0.04) 10*3/uL Neutrophils # (1.3-7.7) k/uL Lymphocytes # (1.0-4.8) k/uL Eosinophils # (0.04-0.35) 10*3/uL ESR (0-20) mm/Hr PT (10.0-12.5) sec INR (<1.2) APTT (22.0-30.0) sec ABG pH (7.35-7.45) ABG pCO2 (35-45) mmHg ABG pO2 (83-108) mmHg ABG Total CO2 (19-24) mmol/L ABG O2 Saturation (94-97) % Hemoglobin (13.0-17.5) gm/dL BUN (9-20) mg/dL Glucose (74-99) mg/dL POC Glucose (mg/dL) (70-110) mg/dL Plasma Lactic Acid Tonio (0.7-2.0) mmol/L Calcium (8.4-10.2) mg/dL AST (17-59) U/L ALT (4-49) U/L Troponin I 1.420 H* (0.000-0.034) ng/mL C-Reactive Protein 19.3 H (<1.0) mg/dL Total Protein (6.3-8.2) g/dL Albumin (3.5-5.0) g/dL HDL Cholesterol (40.00-60.00) mg/dL Procalcitonin (0.02-0.50) ng/mL TSH (0.465-4.680) mIU/L IgG1 348.80 L (382.40-928.60) mg/dL 09/07/24 09/07/24 09/07/24 Range/Units 10:03 10:58 12:30 WBC (4.50-10.00) 10*3/uL RBC (4.30-5.90) m/uL Hgb (13.0-17.5) gm/dL Hct (39.0-53.0) % MCV (80.0-100.0) fL MCHC (31.0-37.0) g/dL Immature Gran # (0.00-0.04) 10*3/uL Neutrophils # (1.3-7.7) k/uL Lymphocytes # (1.0-4.8) k/uL Eosinophils # (0.04-0.35) 10*3/uL ESR (0-20) mm/Hr PT (10.0-12.5) sec INR (<1.2) APTT (22.0-30.0) sec ABG pH 7.31 L (7.35-7.45) ABG pCO2 48 H (35-45) mmHg ABG pO2 122 H (83-108) mmHg ABG Total CO2 25 H (19-24) mmol/L ABG O2 Saturation 98.5 H (94-97) % Hemoglobin 10.9 L (13.0-17.5) gm/dL BUN (9-20) mg/dL Glucose (74-99) mg/dL POC Glucose (mg/dL) (70-110) mg/dL Plasma Lactic Acid Tonio 6.0 H* (0.7-2.0) mmol/L Calcium (8.4-10.2) mg/dL AST (17-59) U/L ALT (4-49) U/L Troponin I (0.000-0.034) ng/mL C-Reactive Protein (<1.0) mg/dL Total Protein (6.3-8.2) g/dL Albumin (3.5-5.0) g/dL HDL Cholesterol (40.00-60.00) mg/dL Procalcitonin (0.02-0.50) ng/mL TSH 5.790 H (0.465-4.680) mIU/L IgG1 (382.40-928.60) mg/dL 09/07/24 09/07/24 09/07/24 Range/Units 15:20 15:20 18:22 WBC (4.50-10.00) 10*3/uL RBC (4.30-5.90) m/uL Hgb (13.0-17.5) gm/dL Hct (39.0-53.0) % MCV (80.0-100.0) fL MCHC (31.0-37.0) g/dL Immature Gran # (0.00-0.04) 10*3/uL Neutrophils # (1.3-7.7) k/uL Lymphocytes # (1.0-4.8) k/uL Eosinophils # (0.04-0.35) 10*3/uL ESR (0-20) mm/Hr PT (10.0-12.5) sec INR (<1.2) APTT (22.0-30.0) sec ABG pH (7.35-7.45) ABG pCO2 (35-45) mmHg ABG pO2 (83-108) mmHg ABG Total CO2 (19-24) mmol/L ABG O2 Saturation (94-97) % Hemoglobin (13.0-17.5) gm/dL BUN (9-20) mg/dL Glucose (74-99) mg/dL POC Glucose (mg/dL) (70-110) mg/dL Plasma Lactic Acid Tonio 3.6 H* 3.1 H* (0.7-2.0) mmol/L Calcium (8.4-10.2) mg/dL AST (17-59) U/L ALT (4-49) U/L Troponin I 1.080 H* (0.000-0.034) ng/mL C-Reactive Protein (<1.0) mg/dL Total Protein (6.3-8.2) g/dL Albumin (3.5-5.0) g/dL HDL Cholesterol (40.00-60.00) mg/dL Procalcitonin (0.02-0.50) ng/mL TSH (0.465-4.680) mIU/L IgG1 (382.40-928.60) mg/dL 09/07/24 09/07/24 09/08/24 Range/Units 22:11 23:19 00:54 WBC (4.50-10.00) 10*3/uL RBC (4.30-5.90) m/uL Hgb (13.0-17.5) gm/dL Hct (39.0-53.0) % MCV (80.0-100.0) fL MCHC (31.0-37.0) g/dL Immature Gran # (0.00-0.04) 10*3/uL Neutrophils # (1.3-7.7) k/uL Lymphocytes # (1.0-4.8) k/uL Eosinophils # (0.04-0.35) 10*3/uL ESR (0-20) mm/Hr PT (10.0-12.5) sec INR (<1.2) APTT (22.0-30.0) sec ABG pH (7.35-7.45) ABG pCO2 (35-45) mmHg ABG pO2 (83-108) mmHg ABG Total CO2 (19-24) mmol/L ABG O2 Saturation (94-97) % Hemoglobin (13.0-17.5) gm/dL BUN (9-20) mg/dL Glucose (74-99) mg/dL POC Glucose (mg/dL) 113 H (70-110) mg/dL Plasma Lactic Acid Tonio 2.9 H* 2.8 H* (0.7-2.0) mmol/L Calcium (8.4-10.2) mg/dL AST (17-59) U/L ALT (4-49) U/L Troponin I (0.000-0.034) ng/mL C-Reactive Protein (<1.0) mg/dL Total Protein (6.3-8.2) g/dL Albumin (3.5-5.0) g/dL HDL Cholesterol (40.00-60.00) mg/dL Procalcitonin (0.02-0.50) ng/mL TSH (0.465-4.680) mIU/L IgG1 (382.40-928.60) mg/dL 09/08/24 09/08/24 09/08/24 Range/Units 03:57 03:57 03:57 WBC 10.03 H (4.50-10.00) 10*3/uL RBC 3.41 L (4.30-5.90) m/uL Hgb 10.9 L (13.0-17.5) gm/dL Hct 32.8 L (39.0-53.0) % MCV (80.0-100.0) fL MCHC (31.0-37.0) g/dL Immature Gran # 0.06 H (0.00-0.04) 10*3/uL Neutrophils # 9.06 H (1.3-7.7) k/uL Lymphocytes # 0.39 L (1.0-4.8) k/uL Eosinophils # 0.00 L (0.04-0.35) 10*3/uL ESR (0-20) mm/Hr PT 13.6 H (10.0-12.5) sec INR 1.3 H (<1.2) APTT (22.0-30.0) sec ABG pH (7.35-7.45) ABG pCO2 (35-45) mmHg ABG pO2 (83-108) mmHg ABG Total CO2 (19-24) mmol/L ABG O2 Saturation (94-97) % Hemoglobin (13.0-17.5) gm/dL BUN 37 H (9-20) mg/dL Glucose 116 H (74-99) mg/dL POC Glucose (mg/dL) (70-110) mg/dL Plasma Lactic Acid Tonio (0.7-2.0) mmol/L Calcium 8.1 L (8.4-10.2) mg/dL AST 5149 H (17-59) U/L ALT 3908 H (4-49) U/L Troponin I (0.000-0.034) ng/mL C-Reactive Protein (<1.0) mg/dL Total Protein 4.7 L (6.3-8.2) g/dL Albumin 2.3 L (3.5-5.0) g/dL HDL Cholesterol 32.10 L (40.00-60.00) mg/dL Procalcitonin (0.02-0.50) ng/mL TSH (0.465-4.680) mIU/L IgG1 (382.40-928.60) mg/dL 09/08/24 09/08/24 09/08/24 Range/Units 03:57 03:57 05:43 WBC (4.50-10.00) 10*3/uL RBC (4.30-5.90) m/uL Hgb (13.0-17.5) gm/dL Hct (39.0-53.0) % MCV (80.0-100.0) fL MCHC (31.0-37.0) g/dL Immature Gran # (0.00-0.04) 10*3/uL Neutrophils # (1.3-7.7) k/uL Lymphocytes # (1.0-4.8) k/uL Eosinophils # (0.04-0.35) 10*3/uL ESR (0-20) mm/Hr PT (10.0-12.5) sec INR (<1.2) APTT 30.2 H (22.0-30.0) sec ABG pH (7.35-7.45) ABG pCO2 (35-45) mmHg ABG pO2 171 H (83-108) mmHg ABG Total CO2 26 H (19-24) mmol/L ABG O2 Saturation 99.5 H (94-97) % Hemoglobin 10.8 L (13.0-17.5) gm/dL BUN (9-20) mg/dL Glucose (74-99) mg/dL POC Glucose (mg/dL) (70-110) mg/dL Plasma Lactic Acid Tonio 2.5 H* (0.7-2.0) mmol/L Calcium (8.4-10.2) mg/dL AST (17-59) U/L ALT (4-49) U/L Troponin I (0.000-0.034) ng/mL C-Reactive Protein (<1.0) mg/dL Total Protein (6.3-8.2) g/dL Albumin (3.5-5.0) g/dL HDL Cholesterol (40.00-60.00) mg/dL Procalcitonin (0.02-0.50) ng/mL TSH (0.465-4.680) mIU/L IgG1 (382.40-928.60) mg/dL 09/08/24 Range/Units 05:54 WBC (4.50-10.00) 10*3/uL RBC (4.30-5.90) m/uL Hgb (13.0-17.5) gm/dL Hct (39.0-53.0) % MCV (80.0-100.0) fL MCHC (31.0-37.0) g/dL Immature Gran # (0.00-0.04) 10*3/uL Neutrophils # (1.3-7.7) k/uL Lymphocytes # (1.0-4.8) k/uL Eosinophils # (0.04-0.35) 10*3/uL ESR (0-20) mm/Hr PT (10.0-12.5) sec INR (<1.2) APTT (22.0-30.0) sec ABG pH (7.35-7.45) ABG pCO2 (35-45) mmHg ABG pO2 (83-108) mmHg ABG Total CO2 (19-24) mmol/L ABG O2 Saturation (94-97) % Hemoglobin (13.0-17.5) gm/dL BUN (9-20) mg/dL Glucose (74-99) mg/dL POC Glucose (mg/dL) 134 H (70-110) mg/dL Plasma Lactic Acid Tonio (0.7-2.0) mmol/L Calcium (8.4-10.2) mg/dL AST (17-59) U/L ALT (4-49) U/L Troponin I (0.000-0.034) ng/mL C-Reactive Protein (<1.0) mg/dL Total Protein (6.3-8.2) g/dL Albumin (3.5-5.0) g/dL HDL Cholesterol (40.00-60.00) mg/dL Procalcitonin (0.02-0.50) ng/mL TSH (0.465-4.680) mIU/L IgG1 (382.40-928.60) mg/dL Microbiology - Last 24 Hours (Table) 09/07/24 21:50 Gram Stain - Preliminary Sputum Assessment and Plan Assessment: Acute hypoxic respiratory failure Mediastinal mass obstructing left main bronchus with complete opacification of the left lung Possible postobstructive pneumonia Acute COPD exacerbation NSTEMI Lung mass Lactic acidosis Acute transaminitis Plan: Continue with Zosyn Pulmonary team consult Continue oxygen therapy Bronchoscopy on 09/08 Continue with heparin drip Continue with amiodarone per outreach rep Cartilage team consult Labs and medication were reviewed.. Continue same treatment. Continue with symptomatic treatment. Resume home medication. Monitor labs and vitals. DVT and GI prophylaxis. Further recommendations as per clinical course of the patient DVT prophylaxis: heparin GI Prophylaxis: Pepcid Prognosis is guarded
[2024-09-08 10:42] LABS: INR 1.2 (<1.2); Partial Thromboplastin Time 40.4 sec (22.0-30.0); Prothrombin Time 12.6 sec (10.0-12.5)
[2024-09-08 11:05] LABS: Albumin 2.3 g/dL (3.5-5.0)
[2024-09-08 11:07] LABS: African American GFR (CKD) >90 (>60 ml/min/1.73 sqM); Alkaline Phosphatase 112 U/L (38-126); Anion Gap 4 mmol/L; Blood Urea Nitrogen 34 mg/dL (9-20); Carbon Dioxide 25 mmol/L (22-30); Chloride 107 mmol/L (98-107); Glucose 117 mg/dL (74-99); Non-African American GFR(CKD) >90 (>60 ml/min/1.73 sqM); Potassium 4.3 mmol/L (3.5-5.1); Sodium 136 mmol/L (137-145); Total Bilirubin 0.9 mg/dL (0.2-1.3); Total Protein 4.8 g/dL (6.3-8.2)
--- NOTE | 2024-09-08 11:51 | P.PN ---
Subjective Progress Note Date: 09/08/24 Principal diagnosis: Transaminitis This is a 64-year-old male being seen in the ICU who is currently sedated and intubated. History is obtained from chart. There is no family at the bedside currently. Apparently patient had had significant shortness of breath and came into the emergency department for further evaluation. He was noted to be hypoxic and hypotensive and subsequently was intubated. Patient is requiring norepinephrine for his hypotension. Past medical history reported includes osteoarthritis and thyroid disorder as well as chronic tobacco use since age 13. Patient was noted to have acute transaminitis for which gastroenterology was consulted. Patient's later present at the bedside and states patient has no known history of liver disease, no history of alcohol abuse. Today's labs WBC 9.5 hemoglobin 11.6 platelet count 289,000 INR 1.3 D-dimer 15.3 sodium 138 potassium 5.0 BUN 37 creatinine 0.8 lactic acid 6.0 magnesium 2.5 total bilirubin 1.1 AST 2374 ALT 1390 alkaline phosphatase 127 troponin 1[address] angiogram chest which reported no acute pulmonary emboli. A large mass within the mediastinum encasing and obstructing the left main bronchus. Large right lower medial lobe mass Nominal ultrasound reports small echogenic foci within the enlarged liver may be small hemangiomas. Other etiologies are not excluding including metastasis. Additional workup with CT could be performed. There is a 4 cm isoechoic density at the lung base of uncertain etiology. Additional workup with CT chest is recommended. September 08, 2024 Patient seen and examined today as a follow-up. He remains in the ICU sedated and intubated. He is about to undergo bronchoscopy. Patient was started on amiodarone yesterday and continues on IV amiodarone at this time. Currently off his pressors, blood pressures have been more stable. Total bilirubin 0.8 down from 1.1 AST up from 237 09/02/1951 149 ALT up from 1392 3908 alkaline phosphatase 109 down from 127. Liver ultrasound had showed small echogenic foci within the enlarged liver that may be a small hemangioma. Other etiologies are not excluded including metastasis. Additional workup with CT could be performed. Objective - Vital Signs Vital signs: Vital Signs Temp 98.4 F 09/08/24 08:00 Pulse 70 09/08/24 08:45 Resp 22 09/08/24 08:45 BP 87/66 09/08/24 07:00 Pulse Ox 100 09/08/24 08:45 FiO2 40 09/08/24 08:27 Intake & Output 09/07/24 09/08/24 09/08/24 18:59 06:59 18:59 Intake Total 2300.828 1951.513 905.982 Output Total 465 390 135 Balance 3991.310 2804.513 770.982 Weight 50.802 kg 54.9 kg Intake: IV 2170 1430 490 Lactated Ringers 1,000 ml 1170 1430 390 @ 130 mls/hr IV .Q7H42M [facility]ENN[facility] Rx#:[id number] Piperacillin-Tazobactam 3 100 .375 gm In Sodium Chloride 0.9% 100 ml @ 25 mls/hr IVPB Q8HR JENN[facility] Rx# :[id number] Sodium Chloride 0.9% 1, 1000 000 ml @ 999 mls/hr IV . Q1H1M ONE Rx#:[id number] Intake, IV Titration 130.828 521.513 415.982 Amount Amiodarone 450 mg In 237.227 Dextrose 5% in Water 250 ml @ 0.5 MG/MIN 16.667 mls/hr IV .Q15H JENN[facility] Rx#: [id number] Heparin Sod,Pork in 0.45% 40.03 112.649 30.937 NaCl 25,000 unit In 0.45 % NaCl 1 250ml.bag @ 12 UNITS/KG/HR 6.096 mls/hr IV .Q24H [facility]ENN[facility] Rx#: [id number] Norepinephrine 4 mg In 23.713 217.875 15.936 Sodium Chloride 0.9% 250 ml @ 0.03 MCG/KG/MIN 5. 807 mls/hr IV .Q24H [facility]ENN[facility] Rx#:[id number] fentaNYL (PF). 1,000 mcg 62.611 In Sodium Chloride 0.9% 80 ml @ 0.5 MCG/KG/HR 2. 54 mls/hr IV .Q24H [facility] Rx #:[id number] propofoL 1,000 mg In 67.085 190.989 69.271 Empty Bag 1 bag @ 15 MCG/ KG/MIN 4.572 mls/hr IV . [id number] JENN[facility]ER Rx#:[id number] Output: Urine 465 390 135 Other: Voiding Method Indwelling Catheter Indwelling Catheter ABP, PAP, CO, CI - Last Documented Arterial Blood Pressure 88/61 - Exam General appearance: The patient is sedated and intubated on mechanical ventilation. Appears older than stated age. HET: Head is normocephalic and atraumatic. Conjunctiva pink. Sclera anicteric. Neck: Supple without lymphadenopathy. Abdomen: Soft, nondistended. Extremities: Normal skin color and turgor. No pedal edema Skin: No rashes, no jaundice Neurological: Sedated and intubated. - Labs CBC & Chem 7: 09/08/24 03:57 09/08/24 03:57 Labs: Abnormal Lab Results - Last 24 Hours (Table) 09/07/24 09/07/24 09/07/24 Range/Units 05:10 05:10 10:03 WBC (4.50-10.00) 10*3/uL RBC 3.79 L (4.30-5.90) m/uL Hgb 11.6 L (13.0-17.5) gm/dL Hct 38.0 L (39.0-53.0) % MCV 100.4 H D (80.0-100.0) fL MCHC 30.6 L (31.0-37.0) g/dL Immature Gran # (0.00-0.04) 10*3/uL Neutrophils # 8.5 H (1.3-7.7) k/uL Lymphocytes # 0.4 L (1.0-4.8) k/uL Eosinophils # (0.04-0.35) 10*3/uL ESR 55 H (0-20) mm/Hr PT (10.0-12.5) sec INR (<1.2) APTT (22.0-30.0) sec ABG pH (7.35-7.45) ABG pCO2 (35-45) mmHg ABG pO2 (83-108) mmHg ABG Total CO2 (19-24) mmol/L ABG O2 Saturation (94-97) % Hemoglobin (13.0-17.5) gm/dL BUN (9-20) mg/dL Glucose (74-99) mg/dL POC Glucose (mg/dL) (70-110) mg/dL Plasma Lactic Acid Tonio (0.7-2.0) mmol/L Calcium (8.4-10.2) mg/dL AST (17-59) U/L ALT (4-49) U/L Troponin I (0.000-0.034) ng/mL C-Reactive Protein (<1.0) mg/dL Total Protein (6.3-8.2) g/dL Albumin (3.5-5.0) g/dL HDL Cholesterol (40.00-60.00) mg/dL Procalcitonin 3.92 H (0.02-0.50) ng/mL TSH (0.465-4.680) mIU/L IgG1 (382.40-928.60) mg/dL 09/07/24 09/07/24 09/07/24 Range/Units 10:03 10:03 10:03 WBC (4.50-10.00) 10*3/uL RBC (4.30-5.90) m/uL Hgb (13.0-17.5) gm/dL Hct (39.0-53.0) % MCV (80.0-100.0) fL MCHC (31.0-37.0) g/dL Immature Gran # (0.00-0.04) 10*3/uL Neutrophils # (1.3-7.7) k/uL Lymphocytes # (1.0-4.8) k/uL Eosinophils # (0.04-0.35) 10*3/uL ESR (0-20) mm/Hr PT (10.0-12.5) sec INR (<1.2) APTT (22.0-30.0) sec ABG pH (7.35-7.45) ABG pCO2 (35-45) mmHg ABG pO2 (83-108) mmHg ABG Total CO2 (19-24) mmol/L ABG O2 Saturation (94-97) % Hemoglobin (13.0-17.5) gm/dL BUN (9-20) mg/dL Glucose (74-99) mg/dL POC Glucose (mg/dL) (70-110) mg/dL Plasma Lactic Acid Tonio (0.7-2.0) mmol/L Calcium (8.4-10.2) mg/dL AST (17-59) U/L ALT (4-49) U/L Troponin I 1.420 H* (0.000-0.034) ng/mL C-Reactive Protein 19.3 H (<1.0) mg/dL Total Protein (6.3-8.2) g/dL Albumin (3.5-5.0) g/dL HDL Cholesterol (40.00-60.00) mg/dL Procalcitonin (0.02-0.50) ng/mL TSH (0.465-4.680) mIU/L IgG1 348.80 L (382.40-928.60) mg/dL 09/07/24 09/07/24 09/07/24 Range/Units 10:03 10:58 12:30 WBC (4.50-10.00) 10*3/uL RBC (4.30-5.90) m/uL Hgb (13.0-17.5) gm/dL Hct (39.0-53.0) % MCV (80.0-100.0) fL MCHC (31.0-37.0) g/dL Immature Gran # (0.00-0.04) 10*3/uL Neutrophils # (1.3-7.7) k/uL Lymphocytes # (1.0-4.8) k/uL Eosinophils # (0.04-0.35) 10*3/uL ESR (0-20) mm/Hr PT (10.0-12.5) sec INR (<1.2) APTT (22.0-30.0) sec ABG pH 7.31 L (7.35-7.45) ABG pCO2 48 H (35-45) mmHg ABG pO2 122 H (83-108) mmHg ABG Total CO2 25 H (19-24) mmol/L ABG O2 Saturation 98.5 H (94-97) % Hemoglobin 10.9 L (13.0-17.5) gm/dL BUN (9-20) mg/dL Glucose (74-99) mg/dL POC Glucose (mg/dL) (70-110) mg/dL Plasma Lactic Acid Tonio 6.0 H* (0.7-2.0) mmol/L Calcium (8.4-10.2) mg/dL AST (17-59) U/L ALT (4-49) U/L Troponin I (0.000-0.034) ng/mL C-Reactive Protein (<1.0) mg/dL Total Protein (6.3-8.2) g/dL Albumin (3.5-5.0) g/dL HDL Cholesterol (40.00-60.00) mg/dL Procalcitonin (0.02-0.50) ng/mL TSH 5.790 H (0.465-4.680) mIU/L IgG1 (382.40-928.60) mg/dL 09/07/24 09/07/24 09/07/24 Range/Units 15:20 15:20 18:22 WBC (4.50-10.00) 10*3/uL RBC (4.30-5.90) m/uL Hgb (13.0-17.5) gm/dL Hct (39.0-53.0) % MCV (80.0-100.0) fL MCHC (31.0-37.0) g/dL Immature Gran # (0.00-0.04) 10*3/uL Neutrophils # (1.3-7.7) k/uL Lymphocytes # (1.0-4.8) k/uL Eosinophils # (0.04-0.35) 10*3/uL ESR (0-20) mm/Hr PT (10.0-12.5) sec INR (<1.2) APTT (22.0-30.0) sec ABG pH (7.35-7.45) ABG pCO2 (35-45) mmHg ABG pO2 (83-108) mmHg ABG Total CO2 (19-24) mmol/L ABG O2 Saturation (94-97) % Hemoglobin (13.0-17.5) gm/dL BUN (9-20) mg/dL Glucose (74-99) mg/dL POC Glucose (mg/dL) (70-110) mg/dL Plasma Lactic Acid Tonio 3.6 H* 3.1 H* (0.7-2.0) mmol/L Calcium (8.4-10.2) mg/dL AST (17-59) U/L ALT (4-49) U/L Troponin I 1.080 H* (0.000-0.034) ng/mL C-Reactive Protein (<1.0) mg/dL Total Protein (6.3-8.2) g/dL Albumin (3.5-5.0) g/dL HDL Cholesterol (40.00-60.00) mg/dL Procalcitonin (0.02-0.50) ng/mL TSH (0.465-4.680) mIU/L IgG1 (382.40-928.60) mg/dL 09/07/24 09/07/24 09/08/24 Range/Units 22:11 23:19 00:54 WBC (4.50-10.00) 10*3/uL RBC (4.30-5.90) m/uL Hgb (13.0-17.5) gm/dL Hct (39.0-53.0) % MCV (80.0-100.0) fL MCHC (31.0-37.0) g/dL Immature Gran # (0.00-0.04) 10*3/uL Neutrophils # (1.3-7.7) k/uL Lymphocytes # (1.0-4.8) k/uL Eosinophils # (0.04-0.35) 10*3/uL ESR (0-20) mm/Hr PT (10.0-12.5) sec INR (<1.2) APTT (22.0-30.0) sec ABG pH (7.35-7.45) ABG pCO2 (35-45) mmHg ABG pO2 (83-108) mmHg ABG Total CO2 (19-24) mmol/L ABG O2 Saturation (94-97) % Hemoglobin (13.0-17.5) gm/dL BUN (9-20) mg/dL Glucose (74-99) mg/dL POC Glucose (mg/dL) 113 H (70-110) mg/dL Plasma Lactic Acid Tonio 2.9 H* 2.8 H* (0.7-2.0) mmol/L Calcium (8.4-10.2) mg/dL AST (17-59) U/L ALT (4-49) U/L Troponin I (0.000-0.034) ng/mL C-Reactive Protein (<1.0) mg/dL Total Protein (6.3-8.2) g/dL Albumin (3.5-5.0) g/dL HDL Cholesterol (40.00-60.00) mg/dL Procalcitonin (0.02-0.50) ng/mL TSH (0.465-4.680) mIU/L IgG1 (382.40-928.60) mg/dL 09/08/24 09/08/24 09/08/24 Range/Units 03:57 03:57 03:57 WBC 10.03 H (4.50-10.00) 10*3/uL RBC 3.41 L (4.30-5.90) m/uL Hgb 10.9 L (13.0-17.5) gm/dL Hct 32.8 L (39.0-53.0) % MCV (80.0-100.0) fL MCHC (31.0-37.0) g/dL Immature Gran # 0.06 H (0.00-0.04) 10*3/uL Neutrophils # 9.06 H (1.3-7.7) k/uL Lymphocytes # 0.39 L (1.0-4.8) k/uL Eosinophils # 0.00 L (0.04-0.35) 10*3/uL ESR (0-20) mm/Hr PT 13.6 H (10.0-12.5) sec INR 1.3 H (<1.2) APTT (22.0-30.0) sec ABG pH (7.35-7.45) ABG pCO2 (35-45) mmHg ABG pO2 (83-108) mmHg ABG Total CO2 (19-24) mmol/L ABG O2 Saturation (94-97) % Hemoglobin (13.0-17.5) gm/dL BUN 37 H (9-20) mg/dL Glucose 116 H (74-99) mg/dL POC Glucose (mg/dL) (70-110) mg/dL Plasma Lactic Acid Tonio (0.7-2.0) mmol/L Calcium 8.1 L (8.4-10.2) mg/dL AST 5149 H (17-59) U/L ALT 3908 H (4-49) U/L Troponin I (0.000-0.034) ng/mL C-Reactive Protein (<1.0) mg/dL Total Protein 4.7 L (6.3-8.2) g/dL Albumin 2.3 L (3.5-5.0) g/dL HDL Cholesterol 32.10 L (40.00-60.00) mg/dL Procalcitonin (0.02-0.50) ng/mL TSH (0.465-4.680) mIU/L IgG1 (382.40-928.60) mg/dL 09/08/24 09/08/24 09/08/24 Range/Units 03:57 03:57 05:43 WBC (4.50-10.00) 10*3/uL RBC (4.30-5.90) m/uL Hgb (13.0-17.5) gm/dL Hct (39.0-53.0) % MCV (80.0-100.0) fL MCHC (31.0-37.0) g/dL Immature Gran # (0.00-0.04) 10*3/uL Neutrophils # (1.3-7.7) k/uL Lymphocytes # (1.0-4.8) k/uL Eosinophils # (0.04-0.35) 10*3/uL ESR (0-20) mm/Hr PT (10.0-12.5) sec INR (<1.2) APTT 30.2 H (22.0-30.0) sec ABG pH (7.35-7.45) ABG pCO2 (35-45) mmHg ABG pO2 171 H (83-108) mmHg ABG Total CO2 26 H (19-24) mmol/L ABG O2 Saturation 99.5 H (94-97) % Hemoglobin 10.8 L (13.0-17.5) gm/dL BUN (9-20) mg/dL Glucose (74-99) mg/dL POC Glucose (mg/dL) (70-110) mg/dL Plasma Lactic Acid Tonio 2.5 H* (0.7-2.0) mmol/L Calcium (8.4-10.2) mg/dL AST (17-59) U/L ALT (4-49) U/L Troponin I (0.000-0.034) ng/mL C-Reactive Protein (<1.0) mg/dL Total Protein (6.3-8.2) g/dL Albumin (3.5-5.0) g/dL HDL Cholesterol (40.00-60.00) mg/dL Procalcitonin (0.02-0.50) ng/mL TSH (0.465-4.680) mIU/L IgG1 (382.40-928.60) mg/dL 09/08/24 Range/Units 05:54 WBC (4.50-10.00) 10*3/uL RBC (4.30-5.90) m/uL Hgb (13.0-17.5) gm/dL Hct (39.0-53.0) % MCV (80.0-100.0) fL MCHC (31.0-37.0) g/dL Immature Gran # (0.00-0.04) 10*3/uL Neutrophils # (1.3-7.7) k/uL Lymphocytes # (1.0-4.8) k/uL Eosinophils # (0.04-0.35) 10*3/uL ESR (0-20) mm/Hr PT (10.0-12.5) sec INR (<1.2) APTT (22.0-30.0) sec ABG pH (7.35-7.45) ABG pCO2 (35-45) mmHg ABG pO2 (83-108) mmHg ABG Total CO2 (19-24) mmol/L ABG O2 Saturation (94-97) % Hemoglobin (13.0-17.5) gm/dL BUN (9-20) mg/dL Glucose (74-99) mg/dL POC Glucose (mg/dL) 134 H (70-110) mg/dL Plasma Lactic Acid Tonio (0.7-2.0) mmol/L Calcium (8.4-10.2) mg/dL AST (17-59) U/L ALT (4-49) U/L Troponin I (0.000-0.034) ng/mL C-Reactive Protein (<1.0) mg/dL Total Protein (6.3-8.2) g/dL Albumin (3.5-5.0) g/dL HDL Cholesterol (40.00-60.00) mg/dL Procalcitonin (0.02-0.50) ng/mL TSH (0.465-4.680) mIU/L IgG1 (382.40-928.60) mg/dL Microbiology - Last 24 Hours (Table) 09/07/24 21:50 Gram Stain - Preliminary Sputum Assessment and Plan (1) Transaminitis Narrative/Plan: 64-year-old male presenting with shortness of breath and acute hypoxic respiratory failure and hypotension subsequently intubated and now sedated. Unknown history of any liver disease, reviewing patient's chart he has had labs times once in the past about a year ago with normal LFTs. Likely this is an acute ischemic hepatitis secondary to shock liver from hypoperfusion secondary to hypotension. Abdominal ultrasound reviewed. Hepatitis panel ordered and pending. No further workup at this time. Blood pressure stabilized, patient is off pressors however AST and ALT doubled from yesterday, need to consider possible increase superimposed from medications. Current Visit: Yes Status: Acute Code(s): R74.01 - ELEVATION OF LEVELS OF LIVER TRANSAMINASE LEVELS SNOMED Code(s): 909033511 (2) Lung mass Current Visit: Yes Status: Acute Code(s): R91.8 - OTHER NONSPECIFIC ABNORMAL FINDING OF LUNG FIELD SNOMED Code(s): 284616549 (3) Acute hypoxic respiratory failure Current Visit: Yes Status: Acute Code(s): J96.01 - ACUTE RESPIRATORY FAILURE WITH HYPOXIA SNOMED Code(s): 48123273 (4) Hypotension Current Visit: Yes Status: Acute Code(s): I95.9 - HYPOTENSION, UNSPECIFIED SNOMED Code(s): 95291904 Plan: 1. Continue symptomatic and supportive care 2. Avoid hepatotoxic medications. May need to consider alternative to amiod arone if LFTs continue to increase. 3. Maintain optimal blood pressures 4. Repeat daily CMP 5. Continue with recommendations from pulmonology, cardiology and medical team 6. No further GI workup at this time Thank you for this consultation, we will continue to follow. Dr. Conrad Angulo I agree with the dictator's note, documented as a scribe by Emili Palomares.
[2024-09-08 12:11] LABS: ALT 3678 U/L (4-49); AST 4057 U/L (17-59)
[2024-09-08] MEDS: CISATRACURIUM 2 MG/ML 5 ML VIAL IV ONE (12:11)
[2024-09-08 12:49] LABS: Glucose,Whole Blood 104 mg/dL (70-110)
[2024-09-08 13:17] VITALS: BMI 16.4
--- NOTE | 2024-09-08 14:27 | P.PN ---
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 Apparently when the patient arrived he was in extreme respiratory distress, and he had to be intubated and mechanically ventilated almost shortly after he arrived to ICU as the patient did not tolerate CPAP and he continued to be quite tachypneic and short of breath. His labs showed a bit of leukocytosis, elevated D-dimer, elevated liver enzymes and elevated BNP level. Patient had negative viral screening including negative COVID, negative RSV negative influenza A and influenza B. Chest x-ray showed significant abnormality in the right lung base and there was evidence of poor aeration of the left side. CT angiogram of the chest showed large mass within the mediastinum encasing the left main bronchus there is also a right lower lobe mass anteriorly. CT of the chest showed no evidence of pulmonary embolism. In the meantime the patient was noted to be hypotensive, he did require norepinephrine, and I saw him in the ER, transferred the patient to the ICU, recommended continuing mechanical ventilation, discussed his condition with the at bedside, and I explained to the that the findings are more likely findings of sepsis, septic shock, and I am suspecting that the patient has a lung cancer involving the left lung and mediastinum. Patient has been losing significant amount of weight over the last couple of years, and he has been managed for his COPD by Dr. brennan whom he has seen for the last 10 years. 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 During my evaluation the patient was on mechanical ventilation tidal volume 400 FiO2 50% rate of 20 PEEP of 5. ABG while in the ER showed a pO2 of 420 pCO2 43 pH of 7.22 patient did receive bicarb while in the ER, he was placed on propofol at 45 mcg/kg/min he was also placed on fentanyl at 0.5 mcg/kg/h and required norepinephrine at 0.03 mcg/kg/min. Upon transferring the patient to the ICU I was able to place a right femoral triple-lumen catheter and a right radial arterial line. Echocardiogram is pending, cardiology is seeing the patient for his atrial fibrillation. And he is now on amiodarone drip. Most recent ABG on 50% FiO2 showed a pO2 of 122 pCO2 48 pH of 7.31 and his rate was increased up to 22. Lactic acid was noted to be 6, patient did receive fluid boluses troponin was elevated at 1.4, C-reactive protein elevated at 19.3 Patient was seen today on 09/08/2024, remains intubated and mechanically ventilated. Patient is on assist-control rate of 22 tidal volume 400 FiO2 40% and PEEP of 5 his drips include amiodarone at 0.5 mg/min, he is also on propofol at 20 mcg/kg/min patient is also on Zosyn empirically for presumptive sepsis and septic shock, his echocardiogram showed severe LV dysfunction with ejection fraction of 10 to 15%, IV fluid is at KVO. Chest x-ray today showed complete opacification of the left lung with ipsilateral tracheal shift to the left side. Lactic acid is down to 2.2 today. Electrolytes are normal bicarb is normal BUN is 34 creatinine 0.74, however liver enzymes are quite elevated with AST up to 4057 and ALT up to 3678. Could very well be related to his congestive hepatopathy related to severe LV dysfunction with ejection fraction of 10 to 15%. Diagnostic workup on his liver is pending. In the meantime I recommended bronchoscopy and this was done today, please refer to the full operative report. The findings were mostly findings of malignancy involving the left mainstem bronchus and rito and to some extent there is extrinsic compression on the right mainstem bronchus with narrowing but no occlusion. Based on the bronchoscopy findings, could not visualize left upper lobe bronchus could not visualize lingula and could not visualize left lower lobe bronchus. There was a significant abnormal mucosa with lumpy and irregular appearance, and necrotic tissue involving the left mainstem bronchus. Biopsies were done and seo needle aspiration of station 7 was also done. Updated the about his condition, and suggested that we could consider oncology consultation and radiation oncology although I strongly believe the overall picture is extremely poor, and considering the overall appearance of the left mainstem bronchus and abnormal CT of the chest, the patient is not a candidate for any intervention. Cardiology remains on board, addressing his cardiomyopathy and LV dysfunction. Objective - Vital Signs Vital signs: Vital Signs Temp 98.4 F 09/08/24 08:00 Pulse 72 09/08/24 12:08 Resp 22 09/08/24 11:00 BP 87/66 09/08/24 07:00 Pulse Ox 100 09/08/24 11:00 FiO2 40 09/08/24 11:56 Intake & Output 09/07/24 09/08/24 09/08/24 18:59 06:59 18:59 Intake Total 2300.828 1951.513 944.832 Output Total 465 390 195 Balance 5255.779 5384.513 749.832 Weight 50.802 kg 54.9 kg 54.9 kg Intake: IV 2170 1430 510 Lactated Ringers 1,000 ml 1170 1430 410 @ 10 mls/hr IV .Q24H [facility] Rx#:[id number] Piperacillin-Tazobactam 3 100 .375 gm In Sodium Chloride 0.9% 100 ml @ 25 mls/hr IVPB Q8HR [facility] Rx# :[id number] Sodium Chloride 0.9% 1, 1000 000 ml @ 999 mls/hr IV . Q1H1M ONE Rx#:[id number] Intake, IV Titration 130.828 521.513 434.832 Amount Amiodarone 450 mg In 237.227 Dextrose 5% in Water 250 ml @ 0.5 MG/MIN 16.667 mls/hr IV .Q15H [facility] Rx#: [id number] Heparin Sod,Pork in 0.45% 40.03 112.649 49.787 NaCl 25,000 unit In 0.45 % NaCl 1 250ml.bag @ 12 UNITS/KG/HR 6.096 mls/hr IV .Q24H [facility] Rx#: [id number] Norepinephrine 4 mg In 23.713 217.875 15.936 Sodium Chloride 0.9% 250 ml @ 0.03 MCG/KG/MIN 5. 807 mls/hr IV .Q24H [facility] Rx#:[id number] fentaNYL (PF). 1,000 mcg 62.611 In Sodium Chloride 0.9% 80 ml @ 0.5 MCG/KG/HR 2. 54 mls/hr IV .Q24H [facility] Rx #:[id number] propofoL 1,000 mg In 67.085 190.989 69.271 Empty Bag 1 bag @ 15 MCG/ KG/MIN 4.572 mls/hr IV . [id number] [facility] Rx#:[id number] Output: Urine 465 390 195 Other: Voiding Method Indwelling Catheter Indwelling Catheter Indwelling Catheter ABP, PAP, CO, CI - Last Documented Arterial Blood Pressure 92/63 - Exam GENERAL: Revealed a 64-year-old white male, frail looking, Intubated and mechanically ventilated HEENT: Pupils are round and equally reacting to light. EOMI. No sc frailleral icterus. No conjunctival pallor. Normocephalic, atraumatic. No pharyngeal erythema. No thyromegaly. CARDIOVASCULAR: Irregular irregular rhythm, no S3 gallop, no murmur. PULMONARY: Diminished breath sound bilaterally no rhonchi no wheezes minimal crackles at the bases. No breath sounds on the left side ABDOMEN: Soft, nontender, nondistended, normoactive bowel sounds. No palpable organomegaly. MUSCULOSKELETAL: No deformities of the joints noted could not assess range of motion EXTREMITIES: No clubbing, no edema, no cyanosis NEUROLOGICAL: Could not assess, patient is intubated sedated on propofol. Psychiatric: Could not assess. SKIN: No rashes. - Labs CBC & Chem 7: 09/08/24 03:57 09/08/24 10:07 Labs: Abnormal Lab Results - Last 24 Hours (Table) 09/07/24 09/07/24 09/07/24 Range/Units 05:10 10:03 10:03 WBC (4.50-10.00) 10*3/uL RBC (4.40-5.60) 10*6/uL Hgb (13.0-17.0) g/dL Hct (39.6-50.0) % Immature Gran # (0.00-0.04) 10*3/uL Neutrophils # (1.80-7.70) 10*3/uL Lymphocytes # (0.90-5.00) 10*3/uL Eosinophils # (0.04-0.35) 10*3/uL ESR 55 H (0-20) mm/Hr PT (10.0-12.5) sec INR (<1.2) APTT (22.0-30.0) sec ABG pO2 (83-108) mmHg ABG Total CO2 (19-24) mmol/L ABG O2 Saturation (94-97) % ABG Lactic Acid (0.5-1.6) mmol/L Hemoglobin (13.0-17.5) gm/dL Sodium (137-145) mmol/L BUN (9-20) mg/dL Glucose (74-99) mg/dL POC Glucose (mg/dL) (70-110) mg/dL Plasma Lactic Acid Tonio (0.7-2.0) mmol/L Calcium (8.4-10.2) mg/dL AST (17-59) U/L ALT (4-49) U/L Troponin I (0.000-0.034) ng/mL C-Reactive Protein 19.3 H (<1.0) mg/dL Total Protein (6.3-8.2) g/dL Albumin (3.5-5.0) g/dL HDL Cholesterol (40.00-60.00) mg/dL IgG1 348.80 L (382.40-928.60) mg/dL 09/07/24 09/07/24 09/07/24 Range/Units 15:20 15:20 18:22 WBC (4.50-10.00) 10*3/uL RBC (4.40-5.60) 10*6/uL Hgb (13.0-17.0) g/dL Hct (39.6-50.0) % Immature Gran # (0.00-0.04) 10*3/uL Neutrophils # (1.80-7.70) 10*3/uL Lymphocytes # (0.90-5.00) 10*3/uL Eosinophils # (0.04-0.35) 10*3/uL ESR (0-20) mm/Hr PT (10.0-12.5) sec INR (<1.2) APTT (22.0-30.0) sec ABG pO2 (83-108) mmHg ABG Total CO2 (19-24) mmol/L ABG O2 Saturation (94-97) % ABG Lactic Acid (0.5-1.6) mmol/L Hemoglobin (13.0-17.5) gm/dL Sodium (137-145) mmol/L BUN (9-20) mg/dL Glucose (74-99) mg/dL POC Glucose (mg/dL) (70-110) mg/dL Plasma Lactic Acid Tonio 3.6 H* 3.1 H* (0.7-2.0) mmol/L Calcium (8.4-10.2) mg/dL AST (17-59) U/L ALT (4-49) U/L Troponin I 1.080 H* (0.000-0.034) ng/mL C-Reactive Protein (<1.0) mg/dL Total Protein (6.3-8.2) g/dL Albumin (3.5-5.0) g/dL HDL Cholesterol (40.00-60.00) mg/dL IgG1 (382.40-928.60) mg/dL 09/07/24 09/07/24 09/08/24 Range/Units 22:11 23:19 00:54 WBC (4.50-10.00) 10*3/uL RBC (4.40-5.60) 10*6/uL Hgb (13.0-17.0) g/dL Hct (39.6-50.0) % Immature Gran # (0.00-0.04) 10*3/uL Neutrophils # (1.80-7.70) 10*3/uL Lymphocytes # (0.90-5.00) 10*3/uL Eosinophils # (0.04-0.35) 10*3/uL ESR (0-20) mm/Hr PT (10.0-12.5) sec INR (<1.2) APTT (22.0-30.0) sec ABG pO2 (83-108) mmHg ABG Total CO2 (19-24) mmol/L ABG O2 Saturation (94-97) % ABG Lactic Acid (0.5-1.6) mmol/L Hemoglobin (13.0-17.5) gm/dL Sodium (137-145) mmol/L BUN (9-20) mg/dL Glucose (74-99) mg/dL POC Glucose (mg/dL) 113 H (70-110) mg/dL Plasma Lactic Acid Tonio 2.9 H* 2.8 H* (0.7-2.0) mmol/L Calcium (8.4-10.2) mg/dL AST (17-59) U/L ALT (4-49) U/L Troponin I (0.000-0.034) ng/mL C-Reactive Protein (<1.0) mg/dL Total Protein (6.3-8.2) g/dL Albumin (3.5-5.0) g/dL HDL Cholesterol (40.00-60.00) mg/dL IgG1 (382.40-928.60) mg/dL 09/08/24 09/08/24 09/08/24 Range/Units 03:57 03:57 03:57 WBC 10.03 H (4.50-10.00) 10*3/uL RBC 3.41 L (4.40-5.60) 10*6/uL Hgb 10.9 L (13.0-17.0) g/dL Hct 32.8 L (39.6-50.0) % Immature Gran # 0.06 H (0.00-0.04) 10*3/uL Neutrophils # 9.06 H (1.80-7.70) 10*3/uL Lymphocytes # 0.39 L (0.90-5.00) 10*3/uL Eosinophils # 0.00 L (0.04-0.35) 10*3/uL ESR (0-20) mm/Hr PT 13.6 H (10.0-12.5) sec INR 1.3 H (<1.2) APTT (22.0-30.0) sec ABG pO2 (83-108) mmHg ABG Total CO2 (19-24) mmol/L ABG O2 Saturation (94-97) % ABG Lactic Acid (0.5-1.6) mmol/L Hemoglobin (13.0-17.5) gm/dL Sodium (137-145) mmol/L BUN 37 H (9-20) mg/dL Glucose 116 H (74-99) mg/dL POC Glucose (mg/dL) (70-110) mg/dL Plasma Lactic Acid Tonio (0.7-2.0) mmol/L Calcium 8.1 L (8.4-10.2) mg/dL AST 5149 H (17-59) U/L ALT 3908 H (4-49) U/L Troponin I (0.000-0.034) ng/mL C-Reactive Protein (<1.0) mg/dL Total Protein 4.7 L (6.3-8.2) g/dL Albumin 2.3 L (3.5-5.0) g/dL HDL Cholesterol 32.10 L (40.00-60.00) mg/dL IgG1 (382.40-928.60) mg/dL 09/08/24 09/08/24 09/08/24 Range/Units 03:57 03:57 05:43 WBC (4.50-10.00) 10*3/uL RBC (4.40-5.60) 10*6/uL Hgb (13.0-17.0) g/dL Hct (39.6-50.0) % Immature Gran # (0.00-0.04) 10*3/uL Neutrophils # (1.80-7.70) 10*3/uL Lymphocytes # (0.90-5.00) 10*3/uL Eosinophils # (0.04-0.35) 10*3/uL ESR (0-20) mm/Hr PT (10.0-12.5) sec INR (<1.2) APTT 30.2 H (22.0-30.0) sec ABG pO2 171 H (83-108) mmHg ABG Total CO2 26 H (19-24) mmol/L ABG O2 Saturation 99.5 H (94-97) % ABG Lactic Acid (0.5-1.6) mmol/L Hemoglobin 10.8 L (13.0-17.5) gm/dL Sodium (137-145) mmol/L BUN (9-20) mg/dL Glucose (74-99) mg/dL POC Glucose (mg/dL) (70-110) mg/dL Plasma Lactic Acid Tonio 2.5 H* (0.7-2.0) mmol/L Calcium (8.4-10.2) mg/dL AST (17-59) U/L ALT (4-49) U/L Troponin I (0.000-0.034) ng/mL C-Reactive Protein (<1.0) mg/dL Total Protein (6.3-8.2) g/dL Albumin (3.5-5.0) g/dL HDL Cholesterol (40.00-60.00) mg/dL IgG1 (382.40-928.60) mg/dL 09/08/24 09/08/24 09/08/24 Range/Units 05:54 10:07 10:07 WBC (4.50-10.00) 10*3/uL RBC (4.40-5.60) 10*6/uL Hgb (13.0-17.0) g/dL Hct (39.6-50.0) % Immature Gran # (0.00-0.04) 10*3/uL Neutrophils # (1.80-7.70) 10*3/uL Lymphocytes # (0.90-5.00) 10*3/uL Eosinophils # (0.04-0.35) 10*3/uL ESR (0-20) mm/Hr PT 12.6 H (10.0-12.5) sec INR 1.2 H (<1.2) APTT 40.4 H (22.0-30.0) sec ABG pO2 (83-108) mmHg ABG Total CO2 (19-24) mmol/L ABG O2 Saturation (94-97) % ABG Lactic Acid 2.2 H* (0.5-1.6) mmol/L Hemoglobin (13.0-17.5) gm/dL Sodium (137-145) mmol/L BUN (9-20) mg/dL Glucose (74-99) mg/dL POC Glucose (mg/dL) 134 H (70-110) mg/dL Plasma Lactic Acid Tonio (0.7-2.0) mmol/L Calcium (8.4-10.2) mg/dL AST (17-59) U/L ALT (4-49) U/L Troponin I (0.000-0.034) ng/mL C-Reactive Protein (<1.0) mg/dL Total Protein (6.3-8.2) g/dL Albumin (3.5-5.0) g/dL HDL Cholesterol (40.00-60.00) mg/dL IgG1 (382.40-928.60) mg/dL 09/08/24 Range/Units 10:07 WBC (4.50-10.00) 10*3/uL RBC (4.40-5.60) 10*6/uL Hgb (13.0-17.0) g/dL Hct (39.6-50.0) % Immature Gran # (0.00-0.04) 10*3/uL Neutrophils # (1.80-7.70) 10*3/uL Lymphocytes # (0.90-5.00) 10*3/uL Eosinophils # (0.04-0.35) 10*3/uL ESR (0-20) mm/Hr PT (10.0-12.5) sec INR (<1.2) APTT (22.0-30.0) sec ABG pO2 (83-108) mmHg ABG Total CO2 (19-24) mmol/L ABG O2 Saturation (94-97) % ABG Lactic Acid (0.5-1.6) mmol/L Hemoglobin (13.0-17.5) gm/dL Sodium 136 L (137-145) mmol/L BUN 34 H (9-20) mg/dL Glucose 117 H (74-99) mg/dL POC Glucose (mg/dL) (70-110) mg/dL Plasma Lactic Acid Tonio (0.7-2.0) mmol/L Calcium 8.0 L (8.4-10.2) mg/dL AST 4057 H (17-59) U/L ALT 3678 H (4-49) U/L Troponin I (0.000-0.034) ng/mL C-Reactive Protein (<1.0) mg/dL Total Protein 4.8 L (6.3-8.2) g/dL Albumin 2.3 L (3.5-5.0) g/dL HDL Cholesterol (40.00-60.00) mg/dL IgG1 (382.40-928.60) mg/dL Microbiology - Last 24 Hours (Table) 09/07/24 05:26 Blood Culture - Preliminary Blood 09/07/24 21:50 Gram Stain - Preliminary Sputum Assessment and Plan Assessment: Impression: Acute hypercapnic respiratory failure Acute COPD exacerbation Mediastinal mass with complete obstruction of the left mainstem bronchus highly suggestive of lung CA Sepsis and septic shock is strongly suspected based on the presentation, most likely secondary to postobstructive pneumonitis Acute lactic acidosis secondary to sepsis and hypotension Postobstructive pneumonitis involving the left lung Acute transaminitis possible liver metastasis will check liver ultrasound, will check hepatitis panel History of hypothyroidism Status post bronchoscopy and endobronchial biopsies from left mainstem bronchus on 09/08/2024 Severe cardiomyopathy and LV dysfunction with ejection fraction of 10 to 15% Recommendation: Continue to monitor in the ICU Continue ventilatory support Antibiotics empirically/Zosyn Continue amiodarone for atrial fibrillation Continue bronchodilators and steroids Cardiology is addressing his cardiomyopathy and LV dysfunction Continue GI and DVT prophylaxis Continue hemodynamic support if necessary Updated his on his condition and on the bronchoscopy findings Consult radiation oncology and oncology, although I believe the patient is not a candidate for any intervention that may help at this point. Prognosis extremely poor and guarded Will continue to follow Patient is critically ill Critical care time is 35 minutes not including the time spent on procedures. Time with Patient: Greater than 30
--- NOTE | 2024-09-08 16:39 | OP ---
OPERATIVE REPORT DATE OF SERVICE : PROCEDURES PERFORMED: Bronchoscopy, multiple endobronchial biopsies of endobronchial tumor, left mainstem bronchus, washing of the left mainstem bronchus, and Esposito needle aspiration of station 7 lymph nodes. PREOPERATIVE DIAGNOSIS: Left lung collapse and abnormal CT of the chest consistent with malignancy involving left lung. POSTOPERATIVE DIAGNOSIS: Left lung collapse and abnormal CT of the chest consistent with malignancy involving left lung. ANESTHESIA USED: The patient was already on propofol and fentanyl, on mechanical ventilation, and the patient was given Nimbex 10 mg IV push prior to the procedure. DESCRIPTION OF PROCEDURE: The patient was placed in a supine position, he was already on mechanical ventilation, an adapter was applied to the endotracheal tube and the patient was connected to mechanical ventilation. Then, after adequate sedation, the bronchoscope was advanced through the adapter of the endotracheal tube, advanced down to the area of the distal trachea, and as soon as we visualized the rito, there was clearly evidence of significant abnormal anatomy compromising the whole visualization of the airways. Significant abnormal mucosa noted involving the left mainstem bronchus, involving the rito itself, and to some extent, there was some extrinsic compression on the right mainstem bronchus. The tissue was noted to be necrotic, abnormal, multiple endobronchial biopsies were done from the left mainstem bronchus, abnormal mucosa. Washing of the area was also done, the whole left mainstem bronchus was basically totally occluded, and could not visualize any left upper lobe bronchus or lingula or left lower lobe. Then, multiple biopsies were done from the endobronchial abnormalities/mucosa, and the Esposito needle aspiration was also done of station 7 lymph nodes. Procedure was well tolerated, right side was compromised in the sense there was extrinsic compression of the right mainstem bronchus, but no evidence of endobronchial pathology on the right side. After finishing multiple biopsies, Esposito needle, washing of the left mainstem bronchus, procedure was fully done, and the bronchoscope was pulled out of the airways. Discussed the findings with the , and we will consult Oncology and Radiation Oncology on this patient. Prognosis is extremely poor and guarded. MMODL / IJN: [id number] /
[2024-09-08 17:57] LABS: Glucose,Whole Blood 101 mg/dL (70-110)
[2024-09-08] MEDS: FAMOTIDINE 20 MG/2 ML VIAL IV SCH (21:16)
[2024-09-08] MEDS: CHLORHEXIDINE GLUCONATE 15 ML CUP MUCOUS MEM SCH (21:16)
[2024-09-09 00:38] LABS: Glucose,Whole Blood 102 mg/dL (70-110)
[2024-09-09 04:14] LABS: Basophils # (A) 0.01 10*3/uL (0.00-0.10); Basophils % (A) 0.1 %; HCT 34.8 % (39.6-50.0); HGB 11.5 g/dL (13.0-17.0); Lymphocytes # (A) 0.28 10*3/uL (0.90-5.00); Lymphocytes % (A) 2.5 %; MCH 31.9 pg (27.0-32.0); MCV 96.4 fL (80.0-97.0); Mean Platelet Volume 9.7 fL (9.5-12.2); Monocytes # (A) 0.53 10*3/uL (0.20-1.00); Monocytes % (A) 4.7 %; Neutrophils # (A) 10.44 10*3/uL (1.80-7.70); Neutrophils % (A) 91.9 %; Platelet Count 228 10*3/uL (140-440); RBC 3.61 10*6/uL (4.40-5.60); RDW 14.8 % (11.5-14.5); WBC 11.35 10*3/uL (4.50-10.00)
[2024-09-09 04:30] LABS: African American GFR (CKD) >90 (>60 ml/min/1.73 sqM); Albumin 2.5 g/dL (3.5-5.0); Alkaline Phosphatase 130 U/L (38-126); Anion Gap 6 mmol/L; Blood Urea Nitrogen 29 mg/dL (9-20); Calcium 8.4 mg/dL (8.4-10.2); Carbon Dioxide 26 mmol/L (22-30); Chloride 106 mmol/L (98-107); Glucose 107 mg/dL (74-99); Non-African American GFR(CKD) >90 (>60 ml/min/1.73 sqM); Potassium 4.2 mmol/L (3.5-5.1); Sodium 138 mmol/L (137-145); Total Bilirubin 0.9 mg/dL (0.2-1.3)
[2024-09-09 05:26] LABS: ABG Base Excess 0.7 mmol/L; ABG HCO3 25 mmol/L (21-25); ABG Oxygen Saturation 97.9 % (94-97); ABG PCO2 39 mmHg (35-45); ABG PH 7.42 (7.35-7.45); ABG PO2 100 mmHg (83-108); ABG TCO2 26 mmol/L (19-24); Allen Test Performed? Yes
[2024-09-09 06:11] LABS: ALT 2917 U/L (4-49); AST 1629 U/L (17-59)
[2024-09-09 06:58] LABS: Glucose,Whole Blood 86 mg/dL (70-110)
--- NOTE | 2024-09-09 08:20 | P.PN ---
Subjective Progress Note Date: 09/09/24 PROGRESS NOTE The patient is a 64-year-old male who presented with significant dyspnea hypoxemia and hypotension, was intubated. Cardiology consultation was requested because of elevation of troponin. No prior history is available the patient chest x-ray showed total opacification and collapse of the left lung and evidence of tumor. He had an episode of atrial fibrillation after presenting to the ICU, he is back to sinus mechanism. He is hypotensive requiring norepinephrine. No other prior history is available to me and no family is available. Initial blood gases after intubation showed pH 7.22, his D-dimer was 15.3 and his troponin was 1.5. [place] [address] and abnormality and his AST and ALT. His plasma lactic acid was 7.0 on presentation. His EKG showed sinus mechanism with T wave inversion anteriorly. September 08: The patient remains intubated, in sinus mechanism on norepinephrine. He is scheduled to undergo bronchoscopy and biopsy today. There is no evidence of recurrent atrial fibrillation or ventricular tachyarrhythmia. His urinary output has been stable. His echocardiogram report showed severe cardiomyopathy with an ejection fraction of 10-15 % with moderate mitral regurgitation and moderate pulmonary hypertension. The duration of his cardiomyopathy is unknown. The chest x-ray continues to show complete collapse of the left lung. September 09: The patient remains intubated and sedated. He underwent bronchoscopy yesterday and was found to have compression of the left mainstem bronchus as well as the right mainstem bronchus. Biopsies were done. The discussion with the family was started regarding comfort care in view of the very poor prognosis. He continues to be in sinus mechanism, on IV amiodarone. He has no evidence of malignant arrhythmia. Medications: IV amiodarone, IV heparin, Zithromax, Solu-Medrol, norepinephrine, Zosyn PHYSICAL EXAMINATION: Blood pressure 145/90 heart rate 90, intubated and sedated LUNGS: Clear to auscultation anteriorly on the right side no air exchange on the left HEART: Regular rate and rhythm, S1, S2. No S3. Systolic ejection murmur ABDOMEN: Soft, no organomegaly EXTREMETIES: No edema LAB: Hemoglobin 11.5, WBC 11.3. Platelets 228. pH 7.42, PO2 100. BUN 29, creatinine 0.68. Potassium 4.2. AST 1629, ALT 2917 IMPRESSION: 1. Acute respiratory failure with total collapse of the left lung and evidence of mass highly suggestive of malignancy and possible postobstructive pneumonitis 2. Troponin elevation most likely type II myocardial infarction 3. Severe cardiomyopathy of unknown etiology and duration 4. Paroxysmal atrial fibrillation, maintaining sinus mechanism 5. Acute liver failure PLAN: 1. Awaiting family decision regarding comfort care 2. Continue present therapy for now, prognosis is very poor. Objective - Vital Signs Vital signs: Vital Signs Temp 99.9 F H 09/09/24 07:00 Pulse 101 H 09/09/24 07:00 Resp 20 09/09/24 07:00 BP 100/75 09/09/24 03:00 Pulse Ox 98 09/09/24 07:00 FiO2 40 09/09/24 04:04 Intake & Output 09/08/24 09/09/24 09/09/24 18:59 06:59 18:59 Intake Total 1182.396 661.377 91.534 Output Total 410 375 25 Balance 772.396 286.377 66.534 Weight 54.9 kg 55 kg Intake: IV 680 120 10 Lactated Ringers 1,000 ml 480 120 10 @ 10 mls/hr IV .Q24H [facility]ENN[facility] Rx#:[id number] Piperacillin-Tazobactam 3 200 .375 gm In Sodium Chloride 0.9% 100 ml @ 25 mls/hr IVPB Q8HR [facility]ENN[facility]ER Rx# :[id number] Intake, IV Titration 502.396 541.377 81.534 Amount Amiodarone 450 mg In 237.227 250 Dextrose 5% in Water 250 ml @ 0.5 MG/MIN 16.667 mls/hr IV .Q15H [facility]ENN[facility]ER Rx#: [id number] Heparin Sod,Pork in 0.45% 49.787 151.804 NaCl 25,000 unit In 0.45 % NaCl 1 250ml.bag @ 12 UNITS/KG/HR 6.096 mls/hr IV .Q24H JENN[facility]ER Rx#: [id number] Norepinephrine 4 mg In 15.936 Sodium Chloride 0.9% 250 ml @ 0.03 MCG/KG/MIN 5. 807 mls/hr IV .Q24H [facility]ENN[facility] Rx#:[id number] Piperacillin-Tazobactam 3 100 .375 gm In Sodium Chloride 0.9% 100 ml @ 25 mls/hr IVPB Q8HR [facility] Rx# :[id number] fentaNYL (PF). 1,000 mcg 74.549 0 In Sodium Chloride 0.9% 80 ml @ 0.5 MCG/KG/HR 2. 54 mls/hr IV .Q24H [facility] Rx #:[id number] propofoL 1,000 mg In 124.897 39.573 81.534 Empty Bag 1 bag @ 15 MCG/ KG/MIN 4.572 mls/hr IV . [id number] [facility]ENN[facility]ER Rx#:[id number] Output: Urine 410 375 25 Other: Voiding Method Indwelling Catheter Indwelling Catheter # Bowel Movements 0 0 ABP, PAP, CO, CI - Last Documented Arterial Blood Pressure 145/91 - Labs CBC & Chem 7: 09/09/24 03:40 09/09/24 03:40 Labs: Abnormal Lab Results - Last 24 Hours (Table) 09/07/24 09/08/24 09/08/24 Range/Units 10:03 03:57 10:07 WBC (4.50-10.00) 10*3/uL RBC (4.40-5.60) 10*6/uL Hgb (13.0-17.0) g/dL Hct (39.6-50.0) % Immature Gran # (0.00-0.04) 10*3/uL Neutrophils # (1.80-7.70) 10*3/uL Lymphocytes # (0.90-5.00) 10*3/uL Eosinophils # (0.04-0.35) 10*3/uL PT 12.6 H (10.0-12.5) sec INR 1.2 H (<1.2) APTT 40.4 H (22.0-30.0) sec ABG Total CO2 (19-24) mmol/L ABG O2 Saturation (94-97) % ABG Lactic Acid (0.5-1.6) mmol/L Hemoglobin (13.0-17.5) gm/dL Sodium (137-145) mmol/L BUN 37 H (9-20) mg/dL Glucose 116 H (74-99) mg/dL Calcium 8.1 L (8.4-10.2) mg/dL AST 5149 H (17-59) U/L ALT 3908 H (4-49) U/L Alkaline Phosphatase (38-126) U/L Total Protein 4.7 L (6.3-8.2) g/dL Albumin 2.3 L (3.5-5.0) g/dL HDL Cholesterol 32.10 L (40.00-60.00) mg/dL IgG1 348.80 L (382.40-928.60) mg/dL 09/08/24 09/08/24 09/08/24 Range/Units 10:07 10:07 23:00 WBC (4.50-10.00) 10*3/uL RBC (4.40-5.60) 10*6/uL Hgb (13.0-17.0) g/dL Hct (39.6-50.0) % Immature Gran # (0.00-0.04) 10*3/uL Neutrophils # (1.80-7.70) 10*3/uL Lymphocytes # (0.90-5.00) 10*3/uL Eosinophils # (0.04-0.35) 10*3/uL PT (10.0-12.5) sec INR (<1.2) APTT 32.4 H (22.0-30.0) sec ABG Total CO2 (19-24) mmol/L ABG O2 Saturation (94-97) % ABG Lactic Acid 2.2 H* (0.5-1.6) mmol/L Hemoglobin (13.0-17.5) gm/dL Sodium 136 L (137-145) mmol/L BUN 34 H (9-20) mg/dL Glucose 117 H (74-99) mg/dL Calcium 8.0 L (8.4-10.2) mg/dL AST 4057 H (17-59) U/L ALT 3678 H (4-49) U/L Alkaline Phosphatase (38-126) U/L Total Protein 4.8 L (6.3-8.2) g/dL Albumin 2.3 L (3.5-5.0) g/dL HDL Cholesterol (40.00-60.00) mg/dL IgG1 (382.40-928.60) mg/dL 09/09/24 09/09/24 09/09/24 Range/Units 03:40 03:40 05:00 WBC 11.35 H (4.50-10.00) 10*3/uL RBC 3.61 L (4.40-5.60) 10*6/uL Hgb 11.5 L (13.0-17.0) g/dL Hct 34.8 L (39.6-50.0) % Immature Gran # 0.09 H (0.00-0.04) 10*3/uL Neutrophils # 10.44 H (1.80-7.70) 10*3/uL Lymphocytes # 0.28 L (0.90-5.00) 10*3/uL Eosinophils # 0.00 L (0.04-0.35) 10*3/uL PT (10.0-12.5) sec INR (<1.2) APTT 31.9 H (22.0-30.0) sec ABG Total CO2 (19-24) mmol/L ABG O2 Saturation (94-97) % ABG Lactic Acid (0.5-1.6) mmol/L Hemoglobin (13.0-17.5) gm/dL Sodium (137-145) mmol/L BUN 29 H (9-20) mg/dL Glucose 107 H (74-99) mg/dL Calcium (8.4-10.2) mg/dL AST 1629 H (17-59) U/L ALT 2917 H (4-49) U/L Alkaline Phosphatase 130 H (38-126) U/L Total Protein 5.0 L (6.3-8.2) g/dL Albumin 2.5 L (3.5-5.0) g/dL HDL Cholesterol (40.00-60.00) mg/dL IgG1 (382.40-928.60) mg/dL 09/09/24 Range/Units 05:22 WBC (4.50-10.00) 10*3/uL RBC (4.40-5.60) 10*6/uL Hgb (13.0-17.0) g/dL Hct (39.6-50.0) % Immature Gran # (0.00-0.04) 10*3/uL Neutrophils # (1.80-7.70) 10*3/uL Lymphocytes # (0.90-5.00) 10*3/uL Eosinophils # (0.04-0.35) 10*3/uL PT (10.0-12.5) sec INR (<1.2) APTT (22.0-30.0) sec ABG Total CO2 26 H (19-24) mmol/L ABG O2 Saturation 97.9 H (94-97) % ABG Lactic Acid (0.5-1.6) mmol/L Hemoglobin 12.0 L (13.0-17.5) gm/dL Sodium (137-145) mmol/L BUN (9-20) mg/dL Glucose (74-99) mg/dL Calcium (8.4-10.2) mg/dL AST (17-59) U/L ALT (4-49) U/L Alkaline Phosphatase (38-126) U/L Total Protein (6.3-8.2) g/dL Albumin (3.5-5.0) g/dL HDL Cholesterol (40.00-60.00) mg/dL IgG1 (382.40-928.60) mg/dL Microbiology - Last 24 Hours (Table) 09/07/24 05:26 Blood Culture - Preliminary Blood 09/07/24 21:50 Gram Stain - Preliminary Sputum
--- NOTE | 2024-09-09 08:24 | XR ---
EXAMINATION TYPE: XR chest 1V portable DATE OF EXAM: 09/09/2024 5:26 AM COMPARISON: 09/08/2024 CLINICAL INDICATION: Male, 64 years old with history of Tube placement, TECHNIQUE: XR chest 1V portable view(s) obtained. FINDINGS: Mediastinum is shifted to the left. The pulmonary vasculature is normal. There is improved aeration in the upper left lung field. Persistent opacity remains in the left mid a nd lower lung field. Endotracheal tube tip is 5.6 cm rito. IMPRESSION: 1. Improved aeration left apex. 2. Persistent opacity left mid and lower lung bellamy. 3. Endotracheal tube tip 5.6 cm above the rito [facility], , 09/09/2024 8:22 AM
--- NOTE | 2024-09-09 09:14 | P.PN ---
Subjective History of present illness; patient is a 64-year-old gentleman with past medical history significant for COPD who presented to the ER because of shortness of breath. Most of the history is limited and is obtained from the EMR. According to that patient has been having shortness of breath for the last day. Shortness of breath is present at rest as on exertion. Patient has a hard time breathing. Denied any chest pain. did mention the patient has been losing weight and was having night sweats. Because of shortness of breath, EMS was called and patient was placed on CPAP, patient continued to be tachypneic. In the ER, patient was worked up Initial lab work done in the ER showed WBC 12.9, hemoglobin 13.1, INR 1.3, D- dimer 15.36, sodium 138, potassium 5, BUN 37, creatinine 0.88, lactate 7 magnesium 2.5, AST 2374, ALT 1390, troponin 1.560 proBNP 29,900 Influenza A not detected Influenza B not detected RSV not detected COVID-19 not detected EKG done in the ER showed heart rate of 90, no ST segment elevation or depression seen, no T-wave inversions seen. Chest x-ray done in the ER showed left-sided pleural effusion and pneumonia, opacity in the right lung base could be consolidative opacity versus pulm nodule. Leftward deviation of the thoracic aorta CT chest PE protocol done showed no evidence of any PE, no mediastinal or hilar lymph adenopathy. Large mass within the mediastinum encasing and obstructing left main bronchus, large right lower medial lobe mass. While in the ER, patient continued to be tachypnea, patient was transition to BiPAP initially but patient continued to be tachypneic. Decision was made to p ursue mechanical ventilation, patient was intubated and transferred to ICU 09/08 Patient remains in the ICU sedated and intubated Patient undergoing a bronchoscopy today. Blood pressure 88/61, patient is afebrile. Breathing rate around 22 and he is on FiO2 40% WBC 10.0, hemoglobin 10.9. INR 1.3. pH normal 7.3 and pCO2 45. BMP is unremarkable. Lactic acid elevated 2.5. AST 5149 and ALT 08/10/2007. Chest x-ray from today: Increased opacification of the left lung field with mediastinal shift to the left mild right lower lobe infiltrate is present. Per radiologist. I agree the image and agree. There is almost complete opacification of the left side. Patient remains on Zosyn, heparin drip and am 09/09 Patient remains in the ICU intubated and sedated. Patient domi on Zosyn heparin drip and amiodarone drip. Despite this he still getting A-fib and SVT and cardiology team are following closely. He still have low-grade temperature 99.9. WBC is 11.3, hemoglobin 11.5. Liver enzymes significantly elevated but they are trending down. Patient currently full code however family might consider comfort care as per staff. Active Medications Generic Name Dose Route Start Last Admin Trade Name Freq PRN Reason Stop Dose Admin Acetaminophen 650 mg 09/07/24 06:48 Acetaminophen Suppository 650 Mg Supp RECTAL Q4HR PRN Fever And/ Or Mild Pain Albuterol/Ipratropium 3 ml 09/07/24 08:00 09/09/24 09:12 Ipratropium-Albuterol 3 Ml Neb INHALATION Not Given RT-Q4H JENNIFER Albuterol/Ipratropium 3 ml 09/07/24 05:56 Ipratropium-Albuterol 3 Ml Neb INHALATION RT-Q2H PRN Shortness Of Breath Or Wheezing Chlorhexidine Gluconate 15 ml 09/08/24 21:00 09/09/24 08:54 Chlorhexidine Gluconate 15 Ml Cup MUCOUS MEM 15 ml BID JENNIFER Administration Famotidine 20 mg 09/08/24 21:00 09/09/24 08:54 Famotidine 20 Mg/2 Ml Vial IV 20 mg Q12HR JENN[facility]ER Administration Fentanyl Citrate 50 mcg 09/07/24 05:56 Fentanyl (Pf) 50 Mcg/Ml 2 Ml Amp IVP Q2HR PRN Severe Pain (Scale 7 to 10) Heparin Sodium (Porcine) 0 unit 09/07/24 06:52 09/09/24 06:47 Heparin Sodium 1,000 Un/Ml (10ml Vl) IV 1,250 unit PER PROTOCOL PRN Administration Low PTT Protocol Fentanyl Citrate 1,000 mcg/ 100 mls @ 2.54 mls/hr 09/07/24 06:00 09/09/24 07:44 Sodium Chloride IV Not Given .Q24H JENNIFER Protocol 0.5 MCG/KG/HR Propofol 1,000 mg/ IV Solution 100 mls @ 4.572 mls/hr 09/07/24 06:00 09/09/24 08:50 IV 35 mcg/kg/min .[id number] JENN[facility]ER 10.668 mls/hr Titration Protocol 15 MCG/KG/MIN Norepinephrine Bitartrate 4 mg 254 mls @ 5.807 mls/hr 09/07/24 07:00 09/09/24 07:44 / Sodium Chloride IV Not Given .Q24H JENN[facility]ER Protocol 0.03 MCG/KG/MIN Lactated Ringer's 1,000 mls @ 10 mls/hr 09/07/24 07:00 09/09/24 08:54 Lactated Ringers IV 10 mls/hr .Q24H JENN[facility]ER Administration Heparin Sodium/Sodium Chloride 250 mls @ 6.096 mls/hr 09/07/24 07:15 09/09/24 07:44 25,000 unit/ Sodium Chloride IV Not Given .Q24H JENN[facility]ER Protocol 12 UNITS/KG/HR Piperacillin Sod/Tazobactam 100 mls @ 25 mls/hr 09/07/24 16:00 09/09/24 08:54 Sod 3.375 gm/ Sodium Chloride IVPB 25 mls/hr Q8HR JENN[facility]ER Administration Protocol Amiodarone HCl 450 mg/ 250 mls @ 16.667 mls/hr 09/07/24 17:30 09/08/24 23:46 Dextrose/Water IV 0.5 mg/min .Q15H JENN[facility]ER 16.667 mls/hr Administration Protocol 0.5 MG/MIN Lorazepam 1 mg 09/07/24 18:01 Lorazepam 1 Mg/0.5 Ml Vial IV Q6HR PRN Anxiety Miscellaneous Information 1 each 09/07/24 06:48 Potassium Replacement Protocol 1 Each Misc MISCELLANE DAILY PRN Per Protocol Miscellaneous Information 1 each 09/07/24 06:48 Magnesium Replacement Protocol 1 Each Misc MISCELLANE DAILY PRN Per Protocol Protocol Miscellaneous Information 1 each 09/07/24 06:48 Phosphorus Replacement Protoco 1 Each Misc MISCELLANE DAILY PRN Per Protocol Protocol Morphine Sulfate 2 mg 09/07/24 06:48 Morphine Sulfate 2 Mg/Ml Syringe IV Q2HR PRN Moderate Pain (Scale 4 to 6) Morphine Sulfate 4 mg 09/07/24 06:48 Morphine Sulfate 4 Mg/Ml Syringe IV Q3HR PRN Severe Pain (Scale 7 to 10) Naloxone HCl 0.2 mg 09/07/24 06:46 Naloxone 0.4 Mg/Ml 1 Ml Vial IV Q2M PRN Opioid Reversal Pantoprazole Sodium 40 mg 09/07/24 09:00 09/09/24 08:54 Pantoprazole 40 Mg/10 Ml Vial IV 40 mg DAILY JENN[facility]ER Administration Objective - Vital Signs Vital signs: Vital Signs Temp 99.9 F H 09/09/24 07:00 Pulse 101 H 09/09/24 07:00 Resp 20 09/09/24 07:00 BP 100/75 09/09/24 03:00 Pulse Ox 98 09/09/24 07:00 FiO2 40 09/09/24 04:04 Intake & Output 09/08/24 09/09/24 09/09/24 18:59 06:59 18:59 Intake Total 1182.396 661.377 107.841 Output Total 410 375 25 Balance 772.396 286.377 82.841 Weight 54.9 kg 55 kg Intake: IV 680 120 10 Lactated Ringers 1,000 ml 480 120 10 @ 10 mls/hr IV .Q24H [facility] Rx#:[id number] Piperacillin-Tazobactam 3 200 .375 gm In Sodium Chloride 0.9% 100 ml @ 25 mls/hr IVPB Q8HR [facility] Rx# :[id number] Intake, IV Titration 502.396 541.377 97.841 Amount Amiodarone 450 mg In 237.227 250 Dextrose 5% in Water 250 ml @ 0.5 MG/MIN 16.667 mls/hr IV .Q15H [facility]ENN[facility] Rx#: [id number] Heparin Sod,Pork in 0.45% 49.787 151.804 NaCl 25,000 unit In 0.45 % NaCl 1 250ml.bag @ 12 UNITS/KG/HR 6.096 mls/hr IV .Q24H [facility]ENN[facility] Rx#: [id number] Norepinephrine 4 mg In 15.936 Sodium Chloride 0.9% 250 ml @ 0.03 MCG/KG/MIN 5. 807 mls/hr IV .Q24H [facility]ENN[facility] Rx#:[id number] Piperacillin-Tazobactam 3 100 .375 gm In Sodium Chloride 0.9% 100 ml @ 25 mls/hr IVPB Q8HR [facility] Rx# :[id number] fentaNYL (PF). 1,000 mcg 74.549 0 In Sodium Chloride 0.9% 80 ml @ 0.5 MCG/KG/HR 2. 54 mls/hr IV .Q24H [facility] Rx #:[id number] propofoL 1,000 mg In 124.897 39.573 97.841 Empty Bag 1 bag @ 15 MCG/ KG/MIN 4.572 mls/hr IV . [id number] [facility]ENN[facility]ER Rx#:[id number] Output: Urine 410 375 25 Other: Voiding Method Indwelling Catheter Indwelling Catheter # Bowel Movements 0 0 ABP, PAP, CO, CI - Last Documented Arterial Blood Pressure 145/91 - Exam -GENERAL: The patient is sedated and intubated HEENT: Pupils are round and equally reacting to light. EOMI. No scleral icterus. No conjunctival pallor. Normocephalic, atraumatic. No pharyngeal erythema. No thyromegaly. CARDIOVASCULAR: S1 and S2 present. No murmurs, rubs, or gallops. PULMONARY: Chest is clear to auscultation, no wheezing , no crackles. ABDOMEN: Soft, nontender, nondistended, normoactive bowel sounds. No palpable organomegaly. MUSCULOSKELETAL: No joint swelling or deformity. EXTREMITIES: No cyanosis, clubbing, or pedal edema. NEUROLOGICAL: Gross neurological examination did not reveal any focal deficits. SKIN: No rashes. no petechiae. - Labs CBC & Chem 7: 09/09/24 03:40 09/09/24 03:40 Labs: Abnormal Lab Results - Last 24 Hours (Table) 09/07/24 09/08/24 09/08/24 Range/Units 10:03 03:57 10:07 WBC (4.50-10.00) 10*3/uL RBC (4.40-5.60) 10*6/uL Hgb (13.0-17.0) g/dL Hct (39.6-50.0) % Immature Gran # (0.00-0.04) 10*3/uL Neutrophils # (1.80-7.70) 10*3/uL Lymphocytes # (0.90-5.00) 10*3/uL Eosinophils # (0.04-0.35) 10*3/uL PT 12.6 H (10.0-12.5) sec INR 1.2 H (<1.2) APTT 40.4 H (22.0-30.0) sec ABG Total CO2 (19-24) mmol/L ABG O2 Saturation (94-97) % ABG Lactic Acid (0.5-1.6) mmol/L Hemoglobin (13.0-17.5) gm/dL Sodium (137-145) mmol/L BUN 37 H (9-20) mg/dL Glucose 116 H (74-99) mg/dL Calcium 8.1 L (8.4-10.2) mg/dL AST 5149 H (17-59) U/L ALT 3908 H (4-49) U/L Alkaline Phosphatase (38-126) U/L Total Protein 4.7 L (6.3-8.2) g/dL Albumin 2.3 L (3.5-5.0) g/dL HDL Cholesterol 32.10 L (40.00-60.00) mg/dL IgG1 348.80 L (382.40-928.60) mg/dL 09/08/24 09/08/24 09/08/24 Range/Units 10:07 10:07 23:00 WBC (4.50-10.00) 10*3/uL RBC (4.40-5.60) 10*6/uL Hgb (13.0-17.0) g/dL Hct (39.6-50.0) % Immature Gran # (0.00-0.04) 10*3/uL Neutrophils # (1.80-7.70) 10*3/uL Lymphocytes # (0.90-5.00) 10*3/uL Eosinophils # (0.04-0.35) 10*3/uL PT (10.0-12.5) sec INR (<1.2) APTT 32.4 H (22.0-30.0) sec ABG Total CO2 (19-24) mmol/L ABG O2 Saturation (94-97) % ABG Lactic Acid 2.2 H* (0.5-1.6) mmol/L Hemoglobin (13.0-17.5) gm/dL Sodium 136 L (137-145) mmol/L BUN 34 H (9-20) mg/dL Glucose 117 H (74-99) mg/dL Calcium 8.0 L (8.4-10.2) mg/dL AST 4057 H (17-59) U/L ALT 3678 H (4-49) U/L Alkaline Phosphatase (38-126) U/L Total Protein 4.8 L (6.3-8.2) g/dL Albumin 2.3 L (3.5-5.0) g/dL HDL Cholesterol (40.00-60.00) mg/dL IgG1 (382.40-928.60) mg/dL 09/09/24 09/09/24 09/09/24 Range/Units 03:40 03:40 05:00 WBC 11.35 H (4.50-10.00) 10*3/uL RBC 3.61 L (4.40-5.60) 10*6/uL Hgb 11.5 L (13.0-17.0) g/dL Hct 34.8 L (39.6-50.0) % Immature Gran # 0.09 H (0.00-0.04) 10*3/uL Neutrophils # 10.44 H (1.80-7.70) 10*3/uL Lymphocytes # 0.28 L (0.90-5.00) 10*3/uL Eosinophils # 0.00 L (0.04-0.35) 10*3/uL PT (10.0-12.5) sec INR (<1.2) APTT 31.9 H (22.0-30.0) sec ABG Total CO2 (19-24) mmol/L ABG O2 Saturation (94-97) % ABG Lactic Acid (0.5-1.6) mmol/L Hemoglobin (13.0-17.5) gm/dL Sodium (137-145) mmol/L BUN 29 H (9-20) mg/dL Glucose 107 H (74-99) mg/dL Calcium (8.4-10.2) mg/dL AST 1629 H (17-59) U/L ALT 2917 H (4-49) U/L Alkaline Phosphatase 130 H (38-126) U/L Total Protein 5.0 L (6.3-8.2) g/dL Albumin 2.5 L (3.5-5.0) g/dL HDL Cholesterol (40.00-60.00) mg/dL IgG1 (382.40-928.60) mg/dL 09/09/24 Range/Units 05:22 WBC (4.50-10.00) 10*3/uL RBC (4.40-5.60) 10*6/uL Hgb (13.0-17.0) g/dL Hct (39.6-50.0) % Immature Gran # (0.00-0.04) 10*3/uL Neutrophils # (1.80-7.70) 10*3/uL Lymphocytes # (0.90-5.00) 10*3/uL Eosinophils # (0.04-0.35) 10*3/uL PT (10.0-12.5) sec INR (<1.2) APTT (22.0-30.0) sec ABG Total CO2 26 H (19-24) mmol/L ABG O2 Saturation 97.9 H (94-97) % ABG Lactic Acid (0.5-1.6) mmol/L Hemoglobin 12.0 L (13.0-17.5) gm/dL Sodium (137-145) mmol/L BUN (9-20) mg/dL Glucose (74-99) mg/dL Calcium (8.4-10.2) mg/dL AST (17-59) U/L ALT (4-49) U/L Alkaline Phosphatase (38-126) U/L Total Protein (6.3-8.2) g/dL Albumin (3.5-5.0) g/dL HDL Cholesterol (40.00-60.00) mg/dL IgG1 (382.40-928.60) mg/dL Microbiology - Last 24 Hours (Table) 09/07/24 05:26 Blood Culture - Preliminary Blood Assessment and Plan Assessment: Acute hypoxic respiratory failure Mediastinal mass obstructing left main bronchus with complete opacification of the left lung Possible postobstructive pneumonia Acute COPD exacerbation NSTEMI Lung mass Lactic acidosis Acute transaminitis Plan: Continue with Zosyn Pulmonary team consult Continue oxygen therapy Bronchoscopy on 09/08 Continue with heparin drip Continue with amiodarone per wan support specialist Cartilage team consult Labs and medication were reviewed.. Continue same treatment. Continue with symptomatic treatment. Resume home medication. Monitor labs and vitals. DVT and GI prophylaxis. Further recommendations as per clinical course of the patient DVT prophylaxis: heparin GI Prophylaxis: Pepcid Prognosis is guarded
[2024-09-09] MEDS: DEXTROSE 5% IN WATER 100 ML with AMIODARONE 150 MG IV ONE (09:59)
[2024-09-09 11:07] VITALS: RESP 22
[2024-09-09 11:11] LABS: Magnesium 2.2 mg/dL (1.6-2.3); Potassium 4.1 mmol/L (3.5-5.1)
[2024-09-09 12:48] VITALS: BP 87/65; TEMP 98.6
[2024-09-09 14:09] VITALS: PULSE 73
[2024-09-09] MEDS ORDERED: MORPHINE SULFATE 4 MG/ML SYRINGE IVP PRN (14:37)
[2024-09-09] MEDS ORDERED: MORPHINE SULFATE 2 MG/ML SYRINGE IVP PRN (14:37)
[2024-09-09] MEDS ORDERED: ARTIFICIAL TEARS-HYPROMELLOSE DROPS 15 ML BTL BOTH EYES PRN (14:37)
[2024-09-09] MEDS ORDERED: ATROPINE OPHTH SOLN 1% 5ML BTL SUBLINGUAL PRN (14:37)
[2024-09-09] MEDS ORDERED: SCOPOLAMINE 1 MG/72 HR PATCH TRANSDERM SCH (14:45)
[2024-09-09] MEDS: MORPHINE SULFATE 4 MG/ML SYRINGE IV PRN (14:50)
[2024-09-09] MEDS ORDERED: MORPHINE SULFATE 100 MG in SODIUM CHLORIDE 0.9% 90 ML IV SCH (15:00)
--- NOTE | 2024-09-09 15:30 | P.PN ---
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 Apparently when the patient arrived he was in extreme respiratory distress, and he had to be intubated and mechanically ventilated almost shortly after he arrived to ICU as the patient did not tolerate CPAP and he continued to be quite tachypneic and short of breath. His labs showed a bit of leukocytosis, elevated D-dimer, elevated liver enzymes and elevated BNP level. Patient had negative viral screening including negative COVID, negative RSV negative influenza A and influenza B. Chest x-ray showed significant abnormality in the right lung base and there was evidence of poor aeration of the left side. CT angiogram of the chest showed large mass within the mediastinum encasing the left main bronchus there is also a right lower lobe mass anteriorly. CT of the chest showed no evidence of pulmonary embolism. In the meantime the patient was noted to be hypotensive, he did require norepinephrine, and I saw him in the ER, transferred the patient to the ICU, recommended continuing mechanical ventilation, discussed his condition with the at bedside, and I explained to the that the findings are more likely findings of sepsis, septic shock, and I am suspecting that the patient has a lung cancer involving the left lung and mediastinum. Patient has been losing significant amount of weight over the last couple of years, and he has been managed for his COPD by Dr. brennan whom he has seen for the last 10 years. 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 During my evaluation the patient was on mechanical ventilation tidal volume 400 FiO2 50% rate of 20 PEEP of 5. ABG while in the ER showed a pO2 of 420 pCO2 43 pH of 7.22 patient did receive bicarb while in the ER, he was placed on propofol at 45 mcg/kg/min he was also placed on fentanyl at 0.5 mcg/kg/h and required norepinephrine at 0.03 mcg/kg/min. Upon transferring the patient to the ICU I was able to place a right femoral triple-lumen catheter and a right radial arterial line. Echocardiogram is pending, cardiology is seeing the patient for his atrial fibrillation. And he is now on amiodarone drip. Most recent ABG on 50% FiO2 showed a pO2 of 122 pCO2 48 pH of 7.31 and his rate was increased up to 22. Lactic acid was noted to be 6, patient did receive fluid boluses troponin was elevated at 1.4, C-reactive protein elevated at 19.3 Patient was seen today on 09/08/2024, remains intubated and mechanically ventilated. Patient is on assist-control rate of 22 tidal volume 400 FiO2 40% and PEEP of 5 his drips include amiodarone at 0.5 mg/min, he is also on propofol at 20 mcg/kg/min patient is also on Zosyn empirically for presumptive sepsis and septic shock, his echocardiogram showed severe LV dysfunction with ejection fraction of 10 to 15%, IV fluid is at KVO. Chest x-ray today showed complete opacification of the left lung with ipsilateral tracheal shift to the left side. Lactic acid is down to 2.2 today. Electrolytes are normal bicarb is normal BUN is 34 creatinine 0.74, however liver enzymes are quite elevated with AST up to 4057 and ALT up to 3678. Could very well be related to his congestive hepatopathy related to severe LV dysfunction with ejection fraction of 10 to 15%. Diagnostic workup on his liver is pending. In the meantime I recommended bronchoscopy and this was done today, please refer to the full operative report. The findings were mostly findings of malignancy involving the left mainstem bronchus and rito and to some extent there is extrinsic compression on the right mainstem bronchus with narrowing but no occlusion. Based on the bronchoscopy findings, could not visualize left upper lobe bronchus could not visualize lingula and could not visualize left lower lobe bronchus. There was a significant abnormal mucosa with lumpy and irregular appearance, and necrotic tissue involving the left mainstem bronchus. Biopsies were done and seo needle aspiration of station 7 was also done. Updated the about his condition, and suggested that we could consider oncology consultation and radiation oncology although I strongly believe the overall picture is extremely poor, and considering the overall appearance of the left mainstem bronchus and abnormal CT of the chest, the patient is not a candidate for any intervention. Cardiology remains on board, addressing his cardiomyopathy and LV dysfunction. Patient was seen today on 09/09/2024, remains intubated and mechanically ventilated, patient is on assist-control rate of 22 tidal volume 400 FiO2 40% PEEP of 5 ABG showed a pO2 of 100 pCO2 39 pH of 7.42. Patient remains on amiodarone at 0.5 mg/min, he is also on heparin as per cardiology and is on propofol at 35 mcg/kg/min remains empirically on Zosyn. Yesterday I had a long discussion with the and her brother about his condition, and made aware that his condition is quite poor, prognosis is for, and considering the findings on his bronchoscopy, he will not do very well. CODE STATUS has been changed to DNR, I did consult oncology and radiation oncology on this patient yesterday, I do not believe the patient was seen by them yet today. Chest x-ray today showed adequate position of the endotracheal tube, however he does have significant disease involving the left hilum and left lung with slightly better aeration today on the left lung compared to the chest x-ray prior to bronchoscopy and lavage of the left mainstem bronchus. Pathology from his bronchoscopy is all p ending. Labs today showed WBC count of 11.3 hemoglobin 11.5, basic metabolic profile is normal. Liver enzymes are elevated, ultrasound was noted to be abnormal showed multiple lesions radiologist raised the possibility of hemangiomas or metastatic disease to the liver. Objective - Vital Signs Vital signs: Vital Signs Temp 98.6 F 09/09/24 12:00 Pulse 73 09/09/24 14:00 Resp 22 09/09/24 14:00 BP 87/65 09/09/24 14:00 Pulse Ox 99 09/09/24 14:00 FiO2 40 09/09/24 12:39 Intake & Output 09/08/24 09/09/24 09/09/24 18:59 06:59 18:59 Intake Total 1182.396 661.377 375.204 Output Total 410 375 325 Balance 772.396 286.377 50.204 Weight 54.9 kg 55 kg 55 kg Intake: IV 680 120 231 0.9 @ 10 70 Lactated Ringers 1,000 ml 480 120 40 @ 10 mls/hr IV .Q24H [facility] Rx#:[id number] Piperacillin-Tazobactam 3 200 100 .375 gm In Sodium Chloride 0.9% 100 ml @ 25 mls/hr IVPB Q8HR [facility] Rx# :[id number] pressure bags 21 Intake, IV Titration 502.396 541.377 144.204 Amount Amiodarone 450 mg In 237.227 250 Dextrose 5% in Water 250 ml @ 0.5 MG/MIN 16.667 mls/hr IV .Q15H [facility] Rx#: [id number] Heparin Sod,Pork in 0.45% 49.787 151.804 NaCl 25,000 unit In 0.45 % NaCl 1 250ml.bag @ 12 UNITS/KG/HR 6.096 mls/hr IV .Q24H [facility] Rx#: [id number] Norepinephrine 4 mg In 15.936 3.742 Sodium Chloride 0.9% 250 ml @ 0.03 MCG/KG/MIN 5. 807 mls/hr IV .Q24H [facility] Rx#:[id number] Piperacillin-Tazobactam 3 100 .375 gm In Sodium Chloride 0.9% 100 ml @ 25 mls/hr IVPB Q8HR [facility] Rx# :[id number] fentaNYL (PF). 1,000 mcg 74.549 0 In Sodium Chloride 0.9% 80 ml @ 0.5 MCG/KG/HR 2. 54 mls/hr IV .Q24H [facility] Rx #:[id number] propofoL 1,000 mg In 124.897 39.573 140.462 Empty Bag 1 bag @ 15 MCG/ KG/MIN 4.572 mls/hr IV . [id number] [facility] Rx#:[id number] Output: Urine 410 375 325 Other: Voiding Method Indwelling Catheter Indwelling Catheter Indwelling Catheter # Bowel Movements 0 0 ABP, PAP, CO, CI - Last Documented Arterial Blood Pressure 114/67 - Exam GENERAL: Revealed a 64-year-old white male, frail looking, Intubated and mechanically ventilated HEENT: Pupils are round and equally reacting to light. EOMI. No sc frailleral icterus. No conjunctival pallor. Normocephalic, atraumatic. No pharyngeal erythema. No thyromegaly. CARDIOVASCULAR: Irregular irregular rhythm, no S3 gallop, no murmur. PULMONARY: Diminished breath sound bilaterally no rhonchi no wheezes minimal crackles at the bases. No breath sounds on the left side ABDOMEN: Soft, nontender, nondistended, normoactive bowel sounds. No palpable organomegaly. MUSCULOSKELETAL: No deformities of the joints noted could not assess range of motion EXTREMITIES: No clubbing, no edema, no cyanosis NEUROLOGICAL: Could not assess, patient is intubated sedated on propofol. Psychiatric: Could not assess. SKIN: No rashes. - Labs CBC & Chem 7: 09/09/24 03:40 09/09/24 10:40 Labs: Abnormal Lab Results - Last 24 Hours (Table) 09/08/24 09/09/24 09/09/24 Range/Units 23:00 03:40 03:40 WBC 11.35 H (4.50-10.00) 10*3/uL RBC 3.61 L (4.40-5.60) 10*6/uL Hgb 11.5 L (13.0-17.0) g/dL Hct 34.8 L (39.6-50.0) % Immature Gran # 0.09 H (0.00-0.04) 10*3/uL Neutrophils # 10.44 H (1.80-7.70) 10*3/uL Lymphocytes # 0.28 L (0.90-5.00) 10*3/uL Eosinophils # 0.00 L (0.04-0.35) 10*3/uL APTT 32.4 H (22.0-30.0) sec ABG Total CO2 (19-24) mmol/L ABG O2 Saturation (94-97) % Hemoglobin (13.0-17.5) gm/dL BUN 29 H (9-20) mg/dL Glucose 107 H (74-99) mg/dL AST 1629 H (17-59) U/L ALT 2917 H (4-49) U/L Alkaline Phosphatase 130 H (38-126) U/L Total Protein 5.0 L (6.3-8.2) g/dL Albumin 2.5 L (3.5-5.0) g/dL 09/09/24 09/09/24 Range/Units 05:00 05:22 WBC (4.50-10.00) 10*3/uL RBC (4.40-5.60) 10*6/uL Hgb (13.0-17.0) g/dL Hct (39.6-50.0) % Immature Gran # (0.00-0.04) 10*3/uL Neutrophils # (1.80-7.70) 10*3/uL Lymphocytes # (0.90-5.00) 10*3/uL Eosinophils # (0.04-0.35) 10*3/uL APTT 31.9 H (22.0-30.0) sec ABG Total CO2 26 H (19-24) mmol/L ABG O2 Saturation 97.9 H (94-97) % Hemoglobin 12.0 L (13.0-17.5) gm/dL BUN (9-20) mg/dL Glucose (74-99) mg/dL AST (17-59) U/L ALT (4-49) U/L Alkaline Phosphatase (38-126) U/L Total Protein (6.3-8.2) g/dL Albumin (3.5-5.0) g/dL Microbiology - Last 24 Hours (Table) 09/07/24 21:50 Gram Stain - Preliminary Sputum Sputum Culture - Preliminary Serratia marcescens ssp marces 09/07/24 05:26 Blood Culture - Preliminary Blood Assessment and Plan Assessment: Impression: Acute hypercapnic respiratory failure Acute COPD exacerbation Mediastinal mass with complete obstruction of the left mainstem bronchus highly suggestive of lung CA Sepsis and septic shock is strongly suspected based on the presentation, most likely secondary to postobstructive pneumonitis Acute lactic acidosis secondary to sepsis and hypotension Postobstructive pneumonitis involving the left lung Acute transaminitis possible liver metastasis History of hypothyroidism Status post bronchoscopy and endobronchial biopsies from left mainstem bronchus on 09/08/2024 Severe cardiomyopathy and LV dysfunction with ejection fraction of 10 to 15% Recommendation: Continue to monitor in the ICU Continue ventilatory support Antibiotics empirically/Zosyn Continue amiodarone for atrial fibrillation Continue bronchodilators and steroids Continue GI and DVT prophylaxis Continue vent hemodynamic support if necessary Yesterday, was updated on his poor prognostic picture and his multiple comorbidities in addition to the fact the patient clearly has what seems to be bronchogenic carcinoma involving his mediastinum and constricting left mainstem bronchus with poor aeration of left lung. Patient did undergo bronchoscopy and endobronchial biopsies, clinically the findings are findings of malignancy pathology is again still pending. Patient is critically ill Critical care time is 33 minutes Time with Patient: Greater than 30
--- NOTE | 2024-09-09 15:39 | P.PN ---
Subjective Progress Note Date: 09/09/24 Principal diagnosis: Transaminitis This is a 64-year-old male being seen in the ICU who is currently sedated and intubated. History is obtained from chart. There is no family at the bedside currently. Apparently patient had had significant shortness of breath and came into the emergency department for further evaluation. He was noted to be hypoxic and hypotensive and subsequently was intubated. Patient is requiring norepinephrine for his hypotension. Past medical history reported includes osteoarthritis and thyroid disorder as well as chronic tobacco use since age 13. Patient was noted to have acute transaminitis for which gastroenterology was consulted. Patient's later present at the bedside and states patient has no known history of liver disease, no history of alcohol abuse. Today's labs WBC 9.5 hemoglobin 11.6 platelet count 289,000 INR 1.3 D-dimer 15.3 sodium 138 potassium 5.0 BUN 37 creatinine 0.8 lactic acid 6.0 magnesium 2.5 total bilirubin 1.1 AST 2374 ALT 1390 alkaline phosphatase 127 troponin [address] angiogram chest which reported no acute pulmonary emboli. A large mass within the mediastinum encasing and obstructing the left main bronchus. Large right lower medial lobe mass Nominal ultrasound reports small echogenic foci within the enlarged liver may be small hemangiomas. Other etiologies are not excluding including metastasis. Additional workup with CT could be performed. There is a 4 cm isoechoic density at the lung base of uncertain etiology. Additional workup with CT chest is recommended. September 08, 2024 Patient seen and examined today as a follow-up. He remains in the ICU sedated and intubated. He is about to undergo bronchoscopy. Patient was started on amiodarone yesterday and continues on IV amiodarone at this time. Currently off his pressors, blood pressures have been more stable. Total bilirubin 0.8 down from 1.1 AST up from 237 09/02/1951 149 ALT up from 1392 3908 alkaline phosphatase 109 down from 127. Liver ultrasound had showed small echogenic foci within the enlarged liver that may be a small hemangioma. Other etiologies are not excluded including metastasis. Additional workup with CT could be performed. September 09, 2024 Patient seen and examined today as a follow-up. He remains in the ICU sedated on mechanical ventilation. Patient has been having multiple arrhythmias. is awaiting to see and speak to the oncologist with their recommendations. Apparently they are considering possible comfort care measures. Liver enzymes are now trending down. Total bilirubin 0.9 AST 1629 ALT 2917 alkaline phosphatase 130 Objective - Vital Signs Vital signs: Vital Signs Temp 99.3 F 09/09/24 08:00 Pulse 79 09/09/24 10:00 Resp 22 09/09/24 10:00 BP 102/73 09/09/24 09:00 Pulse Ox 98 09/09/24 10:00 FiO2 40 09/09/24 09:12 Intake & Output 09/08/24 09/09/24 09/09/24 18:59 06:59 18:59 Intake Total 1182.396 661.377 254.110 Output Total 410 375 60 Balance 772.396 286.377 194.110 Weight 54.9 kg 55 kg Intake: IV 680 120 136 0.9 @ 10 20 Lactated Ringers 1,000 ml 480 120 10 @ 10 mls/hr IV .Q24H [facility] Rx#:[id number] Piperacillin-Tazobactam 3 200 100 .375 gm In Sodium Chloride 0.9% 100 ml @ 25 mls/hr IVPB Q8HR [facility] Rx# :[id number] pressure bags 6 Intake, IV Titration 502.396 541.377 118.110 Amount Amiodarone 450 mg In 237.227 250 Dextrose 5% in Water 250 ml @ 0.5 MG/MIN 16.667 mls/hr IV .Q15H [facility] Rx#: [id number] Heparin Sod,Pork in 0.45% 49.787 151.804 NaCl 25,000 unit In 0.45 % NaCl 1 250ml.bag @ 12 UNITS/KG/HR 6.096 mls/hr IV .Q24H [facility] Rx#: [id number] Norepinephrine 4 mg In 15.936 0 Sodium Chloride 0.9% 250 ml @ 0.03 MCG/KG/MIN 5. 807 mls/hr IV .Q24H [facility] Rx#:[id number] Piperacillin-Tazobactam 3 100 .375 gm In Sodium Chloride 0.9% 100 ml @ 25 mls/hr IVPB Q8HR [facility] Rx# :[id number] fentaNYL (PF). 1,000 mcg 74.549 0 In Sodium Chloride 0.9% 80 ml @ 0.5 MCG/KG/HR 2. 54 mls/hr IV .Q24H [facility] Rx #:[id number] propofoL 1,000 mg In 124.897 39.573 118.110 Empty Bag 1 bag @ 15 MCG/ KG/MIN 4.572 mls/hr IV . [id number] [facility] Rx#:[id number] Output: Urine 410 375 60 Other: Voiding Method Indwelling Catheter Indwelling Catheter # Bowel Movements 0 0 ABP, PAP, CO, CI - Last Documented Arterial Blood Pressure 94/59 - Exam General appearance: The patient is sedated and intubated on mechanical ventilation. Appears older than stated age. HET: Head is normocephalic and atraumatic. Conjunctiva pink. Sclera anicteric. Neck: Supple without lymphadenopathy. Abdomen: Soft, nondistended. Extremities: Normal skin color and turgor. No pedal edema Skin: No rashes, no jaundice Neurological: Sedated and intubated. - Labs CBC & Chem 7: 09/09/24 03:40 09/09/24 10:40 Labs: Abnormal Lab Results - Last 24 Hours (Table) 09/08/24 09/08/24 09/08/24 Range/Units 10:07 10:07 23:00 WBC (4.50-10.00) 10*3/uL RBC (4.40-5.60) 10*6/uL Hgb (13.0-17.0) g/dL Hct (39.6-50.0) % Immature Gran # (0.00-0.04) 10*3/uL Neutrophils # (1.80-7.70) 10*3/uL Lymphocytes # (0.90-5.00) 10*3/uL Eosinophils # (0.04-0.35) 10*3/uL APTT 32.4 H (22.0-30.0) sec ABG Total CO2 (19-24) mmol/L ABG O2 Saturation (94-97) % ABG Lactic Acid 2.2 H* (0.5-1.6) mmol/L Hemoglobin (13.0-17.5) gm/dL Sodium 136 L (137-145) mmol/L BUN 34 H (9-20) mg/dL Glucose 117 H (74-99) mg/dL Calcium 8.0 L (8.4-10.2) mg/dL AST 4057 H (17-59) U/L ALT 3678 H (4-49) U/L Alkaline Phosphatase (38-126) U/L Total Protein 4.8 L (6.3-8.2) g/dL Albumin 2.3 L (3.5-5.0) g/dL 09/09/24 09/09/24 09/09/24 Range/Units 03:40 03:40 05:00 WBC 11.35 H (4.50-10.00) 10*3/uL RBC 3.61 L (4.40-5.60) 10*6/uL Hgb 11.5 L (13.0-17.0) g/dL Hct 34.8 L (39.6-50.0) % Immature Gran # 0.09 H (0.00-0.04) 10*3/uL Neutrophils # 10.44 H (1.80-7.70) 10*3/uL Lymphocytes # 0.28 L (0.90-5.00) 10*3/uL Eosinophils # 0.00 L (0.04-0.35) 10*3/uL APTT 31.9 H (22.0-30.0) sec ABG Total CO2 (19-24) mmol/L ABG O2 Saturation (94-97) % ABG Lactic Acid (0.5-1.6) mmol/L Hemoglobin (13.0-17.5) gm/dL Sodium (137-145) mmol/L BUN 29 H (9-20) mg/dL Glucose 107 H (74-99) mg/dL Calcium (8.4-10.2) mg/dL AST 1629 H (17-59) U/L ALT 2917 H (4-49) U/L Alkaline Phosphatase 130 H (38-126) U/L Total Protein 5.0 L (6.3-8.2) g/dL Albumin 2.5 L (3.5-5.0) g/dL 09/09/24 Range/Units 05:22 WBC (4.50-10.00) 10*3/uL RBC (4.40-5.60) 10*6/uL Hgb (13.0-17.0) g/dL Hct (39.6-50.0) % Immature Gran # (0.00-0.04) 10*3/uL Neutrophils # (1.80-7.70) 10*3/uL Lymphocytes # (0.90-5.00) 10*3/uL Eosinophils # (0.04-0.35) 10*3/uL APTT (22.0-30.0) sec ABG Total CO2 26 H (19-24) mmol/L ABG O2 Saturation 97.9 H (94-97) % ABG Lactic Acid (0.5-1.6) mmol/L Hemoglobin 12.0 L (13.0-17.5) gm/dL Sodium (137-145) mmol/L BUN (9-20) mg/dL Glucose (74-99) mg/dL Calcium (8.4-10.2) mg/dL AST (17-59) U/L ALT (4-49) U/L Alkaline Phosphatase (38-126) U/L Total Protein (6.3-8.2) g/dL Albumin (3.5-5.0) g/dL Microbiology - Last 24 Hours (Table) 09/07/24 05:26 Blood Culture - Preliminary Blood Assessment and Plan (1) Transaminitis Narrative/Plan: 64-year-old male presenting with shortness of breath and acute hypoxic respiratory failure and hypotension subsequently intubated and now sedated. Unknown history of any liver disease, reviewing patient's chart he has had labs times once in the past about a year ago with normal LFTs. Likely this is an acute ischemic hepatitis secondary to shock liver from hypoperfusion secondary to hypotension. Abdominal ultrasound reviewed. Hepatitis panel nonreactive. LFTs are trending down, again likely related to acute ischemic hepatitis secondary to shock liver. No further workup at this time. Current Visit: Yes Status: Acute Code(s): R74.01 - ELEVATION OF LEVELS OF LIVER TRANSAMINASE LEVELS SNOMED Code(s): 982396308 (2) Lung mass Current Visit: Yes Status: Acute Priority: High Code(s): R91.8 - OTHER NONSPECIFIC ABNORMAL FINDING OF LUNG FIELD SNOMED Code(s): 860485408 (3) Acute hypoxic respiratory failure Current Visit: Yes Status: Acute Code(s): J96.01 - ACUTE RESPIRATORY FAILURE WITH HYPOXIA SNOMED Code(s): 21674211 (4) Hypotension Current Visit: Yes Status: Acute Code(s): I95.9 - HYPOTENSION, UNSPECIFIED SNOMED Code(s): 37012222 Plan: 1. Continue symptomatic and supportive care 2. Avoid hepatotoxic medications. May need to consider alternative to amiod arone if LFTs continue to increase. 3. Maintain optimal blood pressures 4. Repeat daily CMP 5. Continue with recommendations from pulmonology, cardiology and medical team 6. No further GI workup at this time Thank you for this consultation, we will continue to follow. Dr. Conrad Angulo I agree with the dictator's note, documented as a scribe by Emili Palomares.
--- NOTE | 2024-09-09 21:34 | P.DS ---
Providers Date of admission: 09/07/24 06:47 Attending physician: Mando Young Consults: 09/07/24 06:47 Consult Physician Stat Consulting Provider: Marvin Lu Consult Reason/Comments: ICU Do you want consulting provider notified?: Already Contacted 09/07/24 09:33 Consult Physician Routine Consulting Provider: Dorita Angulo Consult Reason/Comments: Acute transaminitis Do you want consulting provider notified?: Yes 09/07/24 09:34 Consult Physician Routine Consulting Provider: Israel Cates Consult Reason/Comments: NSTEMI Do you want consulting provider notified?: Yes 09/08/24 12:52 Consult Physician Routine Consulting Provider: Mik Gaona Consult Reason/Comments: Left main bronchus necrosis/ obstruction Do you want consulting provider notified?: Yes 09/08/24 12:54 Consult Physician Routine Consulting Provider: Christian Salmon Consult Reason/Comments: Left main bronchus necrosis/ obstruction Do you want consulting provider notified?: Yes Primary care physician: [facility] Course: the family decided to make pt code status as DNR/DVI, and eventually they wanted to proceed with comfort care measure, which looks appropriated , prognosis was very poor, critical care team were aware of this plan and agreeable with this plan when i check with staff, eventually pt as stated in nurse note . please refer to progress note from today for more details Patient Condition at Discharge: Critical Plan - Discharge Summary Discharge Rx Participant: No New Discharge Prescriptions: No Action Meloxicam [Mobic] 7.5 mg PO BID HYDROcodone/APAP 5-325MG [Sagle 5-325] 1 tab PO Q6HR PRN PRN Reason: Pain Gabapentin [Neurontin] 300 mg PO BID Cyclobenzaprine [Flexeril] 10 mg PO DAILY PRN PRN Reason: Muscle Spasm DULoxetine HCL [Cymbalta] 60 mg PO BID Pantoprazole [Protonix] 40 mg PO DAILY Levothyroxine Sodium [Synthroid] 88 mcg PO DAILY Fluticasone/Umeclidin/Vilanter [Trelegy Ellipta 100-62.5-25] 1 puff INHALATION RT-DAILY Megestrol [Megace] 400 mg PO DAILY Discharge Medication List Cyclobenzaprine [Flexeril] 10 mg PO DAILY PRN 12/12/17 [History] DULoxetine HCL [Cymbalta] 60 mg PO BID 12/12/17 [History] Gabapentin [Neurontin] 300 mg PO BID 12/12/17 [History] HYDROcodone/APAP 5-325MG [Sagle 5-325] 1 tab PO Q6HR PRN 12/12/17 [History] Meloxicam [Mobic] 7.5 mg PO BID 12/12/17 [History] Fluticasone/Umeclidin/Vilanter [Trelegy Ellipta 100-62.5-25] 1 puff INHALATION RT-DAILY 01/03/24 [History] Levothyroxine Sodium [Synthroid] 88 mcg PO DAILY 01/03/24 [History] Megestrol [Megace] 400 mg PO DAILY 09/07/24 [History] Pantoprazole [Protonix] 40 mg PO DAILY 09/07/24 [History] Follow up Appointment(s)/Referral(s): Helio Mensah MD [Primary Care Provider] - 1-2 days Discharge Disposition: - Preliminary Cause of Preliminary Cause of : ruptured aortic aneurysm, and hemorrhagic shock
--- NOTE | 2024-09-09 22:16 | P.CONS ---
History of Present Illness - Reason for Consult Consult date: 09/09/24 necrotic lung mass Requesting physician: Jeovanny Castellanos - Chief Complaint SOB - History of Present Illness Mr. Fraga is a 64-year-old male we have been asked to see because of abnormal findings status post bronchoscopy. When seen in the ICU, patient is intubated, family is at the bedside. Patient was admitted 09/07/2024 with complaints of difficulty in breathing x 24 hours. Chest x-ray impression left-sided pleural effusion and pneumonia, opacity in the right lung base, leftward deviation of the trachea. CT a of the chest reporting no mediastinal or hilar adenopathy enlarged, no filling defects to suggest a PE. 6.5 x 7.5 cm mass in the medial right lung base, through the mediastinum extending into the left perihilar region, appears to be including occluding the left bronchus, mass also appears to be encasing and somewhat narrowing the left main pulmonary artery. Patient had a Doppler for swelling of the right lower extremity, unable to visualize because of a bandage from an IV, no evidence of DVT in the veins that were seen. Pulmonary performed bronchoscopy with biopsies, path pending, patient is intubated. Review of Systems ROS unobtainable: due to endotracheal tube Past Medical History Past Medical History: Osteoarthritis (OA), Thyroid Disorder Additional Past Medical History / Comment(s): NECK AND BACK PAIN History of Any Multi-Drug Resistant Organisms: None Reported Past Surgical History: Appendectomy, Tonsillectomy Additional Past Surgical History / Comment(s): BACK INJECTIONS Past Anesthesia/Blood Transfusion Reactions: No Reported Reaction Past Psychological History: Depression Past Alcohol Use History: None Reported Additional Past Alcohol Use History / Comment(s): SMOKES < 1 PPD SINCE AGE 13 Past Drug Use History: None Reported - Past Family History Mother Family Medical History: No Reported History Medications and Allergies Home Medications Medication Instructions Recorded Confirmed Type Cyclobenzaprine [Flexeril] 10 mg PO DAILY PRN 12/12/17 09/07/24 History DULoxetine HCL [Cymbalta] 60 mg PO BID 12/12/17 09/07/24 History Gabapentin [Neurontin] 300 mg PO BID 12/12/17 09/07/24 History HYDROcodone/APAP 5-325MG [[place] 1 tab PO Q6HR PRN 12/12/17 09/07/24 History 5-325] Meloxicam [Mobic] 7.5 mg PO BID 12/12/17 09/07/24 History Fluticasone/Umeclidin/Vilanter 1 puff INHALATION RT-DAILY 01/03/24 09/07/24 History [[place] Ellipta 100-62.5-25] Levothyroxine Sodium [Synthroid] 88 mcg PO DAILY 01/03/24 09/07/24 History Megestrol [Megace] 400 mg PO DAILY 09/07/24 09/07/24 History Pantoprazole [Protonix] 40 mg PO DAILY 09/07/24 09/07/24 History Allergies Allergy/AdvReac Type Severity Reaction Status Date / Time No Known Allergies Allergy Verified 09/07/24 09: Physical Exam Vitals: Vital Signs Temp Pulse Resp BP Pulse Ox FiO2 09/09/24 07:00 99.9 F H 101 H 20 98 09/09/24 06:00 80 19 98 09/09/24 05:00 93 28 H 98 09/09/24 04:12 97 09/09/24 04:04 82 40 09/09/24 04:00 99.0 F 81 23 99 40 09/09/24 03:00 99.3 F 82 23 100/75 98 40 09/09/24 02:00 79 22 112/87 98 09/09/24 01:49 40 09/09/24 01:00 99.5 F 79 22 94/74 98 09/09/24 00:39 80 22 91/73 99 09/09/24 00:00 99.5 F 86 20 97/71 99 40 09/08/24 23:00 118 H 16 95/72 99 40 09/08/24 22:00 105 H 19 96/72 100 09/08/24 21:31 79 09/08/24 21:30 40 09/08/24 21:00 98.0 F 115 H 18 99/75 99 40 09/08/24 20:00 86 20 98/76 100 40 09/08/24 19:00 80 22 94/80 100 09/08/24 18:00 79 22 96/76 99 09/08/24 17:00 80 23 99/79 99 40 09/08/24 16:00 92 22 103/80 99 40 09/08/24 15:55 40 09/08/24 15:52 79 09/08/24 15:00 76 22 92/74 98 09/08/24 14:00 76 19 92/71 96 40 09/08/24 13:00 76 18 98/75 100 40 09/08/24 12:08 72 09/08/24 12:00 98.4 F 72 22 84/65 97 40 09/08/24 11:56 40 09/08/24 11:55 71 09/08/24 11:00 71 22 100 40 09/08/24 10:00 74 22 100 40 Intake and Output 09/08/24 09/09/24 09/09/24 22:59 06:59 14:59 Intake Total 275.199 581.804 107.841 Output Total 240 270 25 Balance 35.199 311.804 82.841 Intake: IV 180 80 10 Lactated Ringers 1,000 ml 80 80 10 @ 10 mls/hr IV .Q24H [facility] Rx#:[id number] Piperacillin-Tazobactam 3 100 .375 gm In Sodium Chloride 0.9% 100 ml @ 25 mls/hr IVPB Q8HR [facility] Rx# :[id number] Intake, IV Titration 95.199 501.804 97.841 Amount Amiodarone 450 mg In 250 Dextrose 5% in Water 250 ml @ 0.5 MG/MIN 16.667 mls/hr IV .Q15H [facility] Rx#: [id number] Heparin Sod,Pork in 0.45% 0 151.804 NaCl 25,000 unit In 0.45 % NaCl 1 250ml.bag @ 12 UNITS/KG/HR 6.096 mls/hr IV .Q24H [facility] Rx#: [id number] Piperacillin-Tazobactam 3 100 .375 gm In Sodium Chloride 0.9% 100 ml @ 25 mls/hr IVPB Q8HR [facility] Rx# :[id number] fentaNYL (PF). 1,000 mcg 0 In Sodium Chloride 0.9% 80 ml @ 0.5 MCG/KG/HR 2. 54 mls/hr IV .Q24H [facility] Rx #:[id number] propofoL 1,000 mg In 95.199 97.841 Empty Bag 1 bag @ 15 MCG/ KG/MIN 4.572 mls/hr IV . [id number] [facility] Rx#:[id number] Output: Urine 240 270 25 Other: Voiding Method Indwelling Catheter Indwelling Catheter # Bowel Movements 0 Weight 55 kg ABP, PAP, CO, CI - Last 8 Hours Arterial Blood Pressure 145/91 Arterial Blood Pressure 102/67 Arterial Blood Pressure 122/83 Arterial Blood Pressure 124/78 Arterial Blood Pressure 126/84 Arterial Blood Pressure 99/64 Thin, cachetic, frail man, intubated Results CBC & Chem 7: 09/09/24 03:40 09/09/24 10:40 Labs: Abnormal Lab Results - Last 24 Hours (Table) 09/07/24 09/08/24 09/08/24 Range/Units 10:03 03:57 10:07 WBC (4.50-10.00) 10*3/uL RBC (4.40-5.60) 10*6/uL Hgb (13.0-17.0) g/dL Hct (39.6-50.0) % Immature Gran # (0.00-0.04) 10*3/uL Neutrophils # (1.80-7.70) 10*3/uL Lymphocytes # (0.90-5.00) 10*3/uL Eosinophils # (0.04-0.35) 10*3/uL PT 12.6 H (10.0-12.5) sec INR 1.2 H (<1.2) APTT 40.4 H (22.0-30.0) sec ABG Total CO2 (19-24) mmol/L ABG O2 Saturation (94-97) % ABG Lactic Acid (0.5-1.6) mmol/L Hemoglobin (13.0-17.5) gm/dL Sodium (137-145) mmol/L BUN 37 H (9-20) mg/dL Glucose 116 H (74-99) mg/dL Calcium 8.1 L (8.4-10.2) mg/dL AST 5149 H (17-59) U/L ALT 3908 H (4-49) U/L Alkaline Phosphatase (38-126) U/L Total Protein 4.7 L (6.3-8.2) g/dL Albumin 2.3 L (3.5-5.0) g/dL HDL Cholesterol 32.10 L (40.00-60.00) mg/dL IgG1 348.80 L (382.40-928.60) mg/dL 09/08/24 09/08/24 09/08/24 Range/Units 10:07 10:07 23:00 WBC (4.50-10.00) 10*3/uL RBC (4.40-5.60) 10*6/uL Hgb (13.0-17.0) g/dL Hct (39.6-50.0) % Immature Gran # (0.00-0.04) 10*3/uL Neutrophils # (1.80-7.70) 10*3/uL Lymphocytes # (0.90-5.00) 10*3/uL Eosinophils # (0.04-0.35) 10*3/uL PT (10.0-12.5) sec INR (<1.2) APTT 32.4 H (22.0-30.0) sec ABG Total CO2 (19-24) mmol/L ABG O2 Saturation (94-97) % ABG Lactic Acid 2.2 H* (0.5-1.6) mmol/L Hemoglobin (13.0-17.5) gm/dL Sodium 136 L (137-145) mmol/L BUN 34 H (9-20) mg/dL Glucose 117 H (74-99) mg/dL Calcium 8.0 L (8.4-10.2) mg/dL AST 4057 H (17-59) U/L ALT 3678 H (4-49) U/L Alkaline Phosphatase (38-126) U/L Total Protein 4.8 L (6.3-8.2) g/dL Albumin 2.3 L (3.5-5.0) g/dL HDL Cholesterol (40.00-60.00) mg/dL IgG1 (382.40-928.60) mg/dL 09/09/24 09/09/24 09/09/24 Range/Units 03:40 03:40 05:00 WBC 11.35 H (4.50-10.00) 10*3/uL RBC 3.61 L (4.40-5.60) 10*6/uL Hgb 11.5 L (13.0-17.0) g/dL Hct 34.8 L (39.6-50.0) % Immature Gran # 0.09 H (0.00-0.04) 10*3/uL Neutrophils # 10.44 H (1.80-7.70) 10*3/uL Lymphocytes # 0.28 L (0.90-5.00) 10*3/uL Eosinophils # 0.00 L (0.04-0.35) 10*3/uL PT (10.0-12.5) sec INR (<1.2) APTT 31.9 H (22.0-30.0) sec ABG Total CO2 (19-24) mmol/L ABG O2 Saturation (94-97) % ABG Lactic Acid (0.5-1.6) mmol/L Hemoglobin (13.0-17.5) gm/dL Sodium (137-145) mmol/L BUN 29 H (9-20) mg/dL Glucose 107 H (74-99) mg/dL Calcium (8.4-10.2) mg/dL AST 1629 H (17-59) U/L ALT 2917 H (4-49) U/L Alkaline Phosphatase 130 H (38-126) U/L Total Protein 5.0 L (6.3-8.2) g/dL Albumin 2.5 L (3.5-5.0) g/dL HDL Cholesterol (40.00-60.00) mg/dL IgG1 (382.40-928.60) mg/dL 09/09/24 Range/Units 05:22 WBC (4.50-10.00) 10*3/uL RBC (4.40-5.60) 10*6/uL Hgb (13.0-17.0) g/dL Hct (39.6-50.0) % Immature Gran # (0.00-0.04) 10*3/uL Neutrophils # (1.80-7.70) 10*3/uL Lymphocytes # (0.90-5.00) 10*3/uL Eosinophils # (0.04-0.35) 10*3/uL PT (10.0-12.5) sec INR (<1.2) APTT (22.0-30.0) sec ABG Total CO2 26 H (19-24) mmol/L ABG O2 Saturation 97.9 H (94-97) % ABG Lactic Acid (0.5-1.6) mmol/L Hemoglobin 12.0 L (13.0-17.5) gm/dL Sodium (137-145) mmol/L BUN (9-20) mg/dL Glucose (74-99) mg/dL Calcium (8.4-10.2) mg/dL AST (17-59) U/L ALT (4-49) U/L Alkaline Phosphatase (38-126) U/L Total Protein (6.3-8.2) g/dL Albumin (3.5-5.0) g/dL HDL Cholesterol (40.00-60.00) mg/dL IgG1 (382.40-928.60) mg/dL Microbiology - Last 24 Hours (Table) 09/07/24 05:26 Blood Culture - Preliminary Blood 09/07/24 21:50 Gram Stain - Preliminary Sputum Chest x-ray: report reviewed CT scan - chest: report reviewed Venous US: report reviewed Assessment and Plan (1) Lung mass Status: Acute Priority: High Code(s): R91.8 - OTHER NONSPECIFIC ABNORMAL FINDING OF LUNG FIELD SNOMED Code(s): 447627689 Plan: Lung mass -Reviewed imaging reports, Pulmonary procedure notes, findings most consistent with a lung malignancy. -Went to speak to family and they have decided on terminal wean and comfort care after discussion with Dr. Mensah
== END 2024-09-09 16:10 | disposition expired | DRG 208 ==
LOC: EC 05:01 → 2SICU 06:47
PROVIDERS: ADMIT Hospitalist; ATTEND Hospitalist
PROC: 5A1945Z Respiratory Ventilation, 24-96 Consecutive Hours (ICD-10-PCS; 2024-09-07)
PROC: 0BH17EZ Insertion of Endotracheal Airway into Trachea, Via Natural or Artificial Opening (ICD-10-PCS; 2024-09-07)
PROC: 3E033XZ Introduction of Vasopressor into Peripheral Vein, Percutaneous Approach (ICD-10-PCS; 2024-09-07)
PROC: 06HM33Z Insertion of Infusion Device into Right Femoral Vein, Percutaneous Approach (ICD-10-PCS; 2024-09-08)
PROC: 4A133B1 Monitoring of Arterial Pressure, Peripheral, Percutaneous Approach (ICD-10-PCS; 2024-09-08)
PROC: 4A133J1 Monitoring of Arterial Pulse, Peripheral, Percutaneous Approach (ICD-10-PCS; 2024-09-08)
PROC: 03HY32Z Insertion of Monitoring Device into Upper Artery, Percutaneous Approach (ICD-10-PCS; 2024-09-08)
PROC: 5A09357 Assistance with Respiratory Ventilation, Less than 24 Consecutive Hours, Continuous Positive Airway Pressure (ICD-10-PCS; 2024-09-08)
PROC: 0BD78ZX Extraction of Left Main Bronchus, Via Natural or Artificial Opening Endoscopic, Diagnostic (ICD-10-PCS; principal; 2024-09-08 12:00)
PROC: 0B978ZX Drainage of Left Main Bronchus, Via Natural or Artificial Opening Endoscopic, Diagnostic (ICD-10-PCS; 2024-09-08 12:00)
DX: J96.01 Acute respiratory failure with hypoxia (principal); I21.A1 Myocardial infarction type 2; R65.21 Severe sepsis with septic shock; K72.00 Acute and subacute hepatic failure without coma; A41.9 Sepsis, unspecified organism; J18.9 Pneumonia, unspecified organism; J85.0 Gangrene and necrosis of lung; R57.8 Other shock; E87.21 Acute metabolic acidosis; C34.02 Malignant neoplasm of left main bronchus; J44.0 Chronic obstructive pulmonary disease with (acute) lower respiratory infection; R64 Cachexia; I27.20 Pulmonary hypertension, unspecified; E03.9 Hypothyroidism, unspecified; F32.A Depression, unspecified; I10 Essential (primary) hypertension; J44.1 Chronic obstructive pulmonary disease with (acute) exacerbation; I42.9 Cardiomyopathy, unspecified; I47.10 Supraventricular tachycardia, unspecified; J98.19 Other pulmonary collapse; Z68.1 Body mass index [BMI] 19.9 or less, adult; I48.0 Paroxysmal atrial fibrillation; J96.02 Acute respiratory failure with hypercapnia; Z51.5 Encounter for palliative care; Z66 Do not resuscitate; F41.9 Anxiety disorder, unspecified; J98.09 Other diseases of bronchus, not elsewhere classified; M19.90 Unspecified osteoarthritis, unspecified site; R22.2 Localized swelling, mass and lump, trunk; Z79.1 Long term (current) use of non-steroidal anti-inflammatories (NSAID); Z79.01 Long term (current) use of anticoagulants; Z79.890 Hormone replacement therapy; Z79.899 Other long term (current) drug therapy; R74.01 Elevation of levels of liver transaminase levels
CPT/HCPCS: 31500; 31624; 31625; 31629; 36415; 36600; 51702; 71045; 71275; 76705; 80053; 80061; 80074; 82787; 82805; 83605; 83735; 83880; 84132; 84145; 84439; 84443; 84484; 85025; 85379; 85610; 85652; 85730; 86038; 86140; 87040; 87070; 87077; 87186; 87205; 87636; 88108; 88305; 88341; 88342; 93005; 93306; 94002; 94003; 94640; 94660; 96365; 96366; 96367; 96368; 96375; 99291